=== PATIENT | female | born 1945 | race Caucasian/White ===

== ENCOUNTER 2016-11-19 08:00 | Outpatient (CLI) | payer MEDICARE, OTHER | END 2016-11-19 08:01 | disposition home or self-care (01) | DX: E11.9 Type 2 diabetes mellitus without complications (principal) ==

== ENCOUNTER 2016-11-19 14:07 | Outpatient (CLI) | payer MEDICARE, OTHER | END 2016-11-19 14:08 | disposition home or self-care (01) | DX: G47.33 Obstructive sleep apnea (adult) (pediatric) (principal); E11.9 Type 2 diabetes mellitus without complications | CPT/HCPCS: 36415; 80053; 83036; 99214; G0463 ==

== ENCOUNTER 2016-12-09 21:00 | Outpatient (CLI) | payer MEDICARE, OTHER | END 2016-12-09 21:01 | disposition EMS.NT | LOC: EMS 21:00 | PROVIDERS: ATTEND Surgery | DX: Z03.89 Encounter for observation for other suspected diseases and conditions ruled out (principal); W19.XXXA Unspecified fall, initial encounter; Y92.009 Unspecified place in unspecified non-institutional (private) residence as the place of occurrence of the external cause ==

== ENCOUNTER 2016-12-12 08:09 | Outpatient (CLI) | payer MEDICARE, OTHER ==
--- NOTE | 2016-12-12 13:28 | Ultrasound Report ---
RENAL ULTRASOUND: 12/12/2016 CLINICAL INDICATION: Chronic kidney disease. COMPARISON: 09/22/2014 TECHNIQUE: Real-time scanning was performed with paper sales representative static images obtained. FINDINGS: The right kidney measures 13.0 x 5.2 x 5.0 cm, and the left kidney measures 11.6 x 6.4 x 5 .3 cm. Small cortical cysts are seen arising from the left kidney, with the largest measuring 2.2 cm . No hydronephrosis, focal renal lesion, or perinephric collection is seen. Prevoid, the bladder measures 9.2 x 9.1 x 7.8 cm, yielding a prevoid volume of 351 mL. Bilateral ure teral jets are present. Postvoid residual is 192 mL. IMPRESSION: INCIDENTAL LEFT RENAL CYSTS. NO HYDRONEPHROSIS. POSTVOID RESIDUAL OF 192 ML. JOB #: [id number] EXT JOB #:[id number]
== END 2016-12-12 08:10 | disposition home or self-care (01) ==
LOC: DI 08:09
PROVIDERS: ATTEND Family Medicine
DX: N18.3 Chronic kidney disease, stage 3 (moderate) (principal); N05.9 Unspecified nephritic syndrome with unspecified morphologic changes; I50.32 Chronic diastolic (congestive) heart failure
CPT/HCPCS: 36415; 76770; 80048; 82570; 83880; 83970; 84156

== ENCOUNTER 2016-12-12 10:36 | Outpatient (CLI) | payer MEDICARE, OTHER ==
[2016-12-12 13:48] LABS: CALCIUM 8.7 mg/dL (8.5-10.3); CREATININE 1.9 mg/dL (0.4-1.0); POTASSIUM 3.9 mmol/L (3.5-5.0)
== END 2016-12-12 10:37 | disposition home or self-care (01) ==
LOC: LAB.WCP 10:36
PROVIDERS: ATTEND Internal Medicine Nephrology
DX: N05.9 Unspecified nephritic syndrome with unspecified morphologic changes (principal); I50.32 Chronic diastolic (congestive) heart failure
CPT/HCPCS: 36415; 80048; 83880

== ENCOUNTER 2016-12-12 10:36 | Outpatient (CLI) | payer MEDICARE, OTHER | END 2016-12-12 10:37 | disposition home or self-care (01) | LOC: LAB.WCP 10:36 | PROVIDERS: ATTEND Family Medicine | DX: N18.3 Chronic kidney disease, stage 3 (moderate) (principal) | CPT/HCPCS: 82570; 83970; 84156 ==

== ENCOUNTER 2017-01-02 08:47 | Outpatient (CLI) | payer MEDICARE, OTHER ==
[2017-01-02 12:53] LABS: CALCIUM 8.8 mg/dL (8.5-10.3); PHOSPHORUS 4.5 mg/dL (2.5-4.6); POTASSIUM 3.8 mmol/L (3.5-5.0)
[2017-01-02 13:10] LABS: HCT - HEMATOCRIT 35.4 % (37.0-47.0); HGB - HEMOGLOBIN 11.1 g/dL (12.0-16.0); MEAN CORPUSCULAR HEMOGLOBIN 25.2 pg (27.0-31.0); MEAN CORPUSCULAR HGB CONC 31.4 g/dL (32.0-36.0); MEAN CORPUSCULAR VOLUME 80.3 fL (81.0-99.0); MEAN PLATELET VOLUME 9.9 fL (7.9-10.8); RED BLOOD COUNT 4.41 10^6/uL (4.20-5.40); RED CELL DISTRIBUTION WIDTH 18.4 % (12.0-15.0); WHITE BLOOD COUNT 10.5 x10^3/uL (4.8-10.8)
== END 2017-01-02 08:48 | disposition home or self-care (01) ==
LOC: LAB.WCP 08:47
PROVIDERS: ATTEND Internal Medicine Nephrology
DX: N05.9 Unspecified nephritic syndrome with unspecified morphologic changes (principal); I50.32 Chronic diastolic (congestive) heart failure; D70.9 Neutropenia, unspecified; E83.30 Disorder of phosphorus metabolism, unspecified; N25.81 Secondary hyperparathyroidism of renal origin
CPT/HCPCS: 36415; 80048; 83880; 83970; 84100; 85025

== ENCOUNTER 2017-01-05 14:51 | Outpatient (CLI) | payer MEDICARE, OTHER | END 2017-01-05 14:52 | disposition home or self-care (01) | LOC: DI 14:51 | PROVIDERS: ATTEND Internal Medicine Nephrology | DX: Z53.9 Procedure and treatment not carried out, unspecified reason (principal) ==

== ENCOUNTER 2017-01-09 11:15 | Outpatient (CLI) | payer MEDICARE, OTHER ==
[2017-01-12 14:23] LABS: ANA SCREEN NEGATIVE (NEGATIVE)
[2017-01-13 12:22] LABS: GLOM BASEMENT MEMBRANE AB IGG <1.0 AI (<1.0)
[2017-01-14 00:23] LABS: LAMBDA LIGHT CHAINS 143 mg/dL (91-240)
[2017-01-15 10:11] LABS: TEST RESULT REPORT (())
== END 2017-01-09 11:16 | disposition home or self-care (01) ==
LOC: LAB 11:15
PROVIDERS: ATTEND Internal Medicine Nephrology
DX: L93.2 Other local lupus erythematosus (principal); M31.30 Wegener's granulomatosis without renal involvement; N00.9 Acute nephritic syndrome with unspecified morphologic changes; R80.9 Proteinuria, unspecified; D47.2 Monoclonal gammopathy; E83.30 Disorder of phosphorus metabolism, unspecified; N25.81 Secondary hyperparathyroidism of renal origin
CPT/HCPCS: 36415; 81599; 83520; 83883; 83970; 84100; 86021; 86038; 86334

== ENCOUNTER 2017-01-09 16:53 | Outpatient (CLI) | payer MEDICARE, OTHER | END 2017-01-09 16:54 | disposition short-term general hospital (02) | LOC: EMS 16:53 | PROVIDERS: ATTEND Surgery | DX: R55 Syncope and collapse (principal); W18.30XA Fall on same level, unspecified, initial encounter; Y92.019 Unspecified place in single-family (private) house as the place of occurrence of the external cause | CPT/HCPCS: A0170; A0425; A0427 ==

== ENCOUNTER 2017-01-15 14:44 | Outpatient (CLI) | payer MEDICARE, OTHER | END 2017-01-15 14:45 | disposition EMS.NT | LOC: EMS 14:44 | PROVIDERS: ATTEND Surgery | DX: Z03.89 Encounter for observation for other suspected diseases and conditions ruled out (principal) ==

== ENCOUNTER 2017-01-16 00:58 | Outpatient (CLI) | payer MEDICARE, OTHER | END 2017-01-16 00:59 | disposition critical access hospital (66) | LOC: EMS 00:58 | PROVIDERS: ATTEND Surgery | DX: M25.562 Pain in left knee (principal); W01.198A Fall on same level from slipping, tripping and stumbling with subsequent striking against other object, initial encounter; Y93.01 Activity, walking, marching and hiking; Y92.008 Other place in unspecified non-institutional (private) residence as the place of occurrence of the external cause | CPT/HCPCS: A0425; A0429 ==

== ENCOUNTER 2017-01-16 01:17 | Emergency (ER) | payer MEDICARE, OTHER ==
--- NOTE | 2017-01-16 02:28 | ED Physician Documentation ---
History of Present Illness - Stated complaint Stated Complaint: FALL/KNEE PAIN - Chief complaint Chief Complaint: Ext Problem - History obtained from History obtained from: Patient, Family - History of Present Illness Timing: Enter time (14:00) Pain level now: 5 Improved by: rest Worsened by: movement - Additonal information Additional information: patient was discharged yesterday from [facility] where she had several- day stay for syncope due to 3rd degree heart block for which she received a PPM ; she also was diagnosed with pneumonia. The day of discharge, she was having diarrhea. The reason she came to the ED is that upon returning home from [place], she tripped on the curb on the way into her house, injuring her left knee. Her and her family say that they think she tripped because she was already having generalized weakness, and that she also was told to not put any strain on her LUE (due to PPM placement). She was gradually able to be helped into the house by family but tonight they called 911 due to the left knee pain becoming intolerable. 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 UCO: Hysterectomy Cardiovascular: Pacemaker - Present Medications Home Medications: Ambulatory Orders Medication Instructions Recorded Confirmed Amlodipine Besylate 5 mg PO QDAC 06/06/13 01/16/17 Aspirin 325 mg PO QDAC 06/06/13 01/16/17 Cetirizine HCl [Zyrtec] 10 mg PO QDAC 06/06/13 01/16/17 Clonidine 1 each TD JHAVERI 06/06/13 01/16/17 Esomeprazole Magnesium [Nexium] 40 mg PO DAILY 06/06/13 01/16/17 Furosemide [Lasix] 40 mg PO BID 06/06/13 01/16/17 Gabapentin 300 mg PO DAILY 06/06/13 01/16/17 Glipizide [Glipizide ER] 2.5 mg PO DAILY 06/06/13 01/16/17 Metoprolol Succinate 100 mg PO DAILY 06/06/13 01/16/17 hydrALAZINE [Apresoline] 50 mg PO TID 06/06/13 01/16/17 Allopurinol 300 mg ORAL DAILY 08/08/14 01/16/17 Albuterol Sulfate [Proair Hfa] 2 puffs INH Q4H PRN 02/01/16 01/16/17 Hydrocodone/Acetaminophen 1 tab PO TID PRN 02/01/16 01/16/17 [Hydrocodon-Acetaminophen 5-325] Oxybutynin Chloride [Ditropan Xl] 15 mg PO QPM 02/01/16 01/16/17 Rosuvastatin Calcium [Crestor] 5 mg PO QPM 02/01/16 01/16/17 Venlafaxine HCl [Venlafaxine HCl 37.5 mg PO DAILY 02/01/16 01/16/17 ER] Magnesium Oxide 400 mg PO BID 01/16/17 01/16/17 Pantoprazole [Protonix] 40 mg PO DAILY 01/16/17 01/16/17 - Allergies Allergies/Adverse Reactions: Allergies Allergy/AdvReac Type Severity Reaction Status Date / Time caffeine Allergy Unknown Verified 01/16/17 01:33 codeine [Codeine] AdvReac Severe Hallucinati Verified 01/16/17 01:30 ons diphenhydramine citrate * AdvReac Intermediate unknown Verified 01/16/17 01:30 [From Excedrin PM] ibuprofen [From Advil] AdvReac Intermediate unknown Verified 01/16/17 01:30 naproxen sodium * AdvReac Intermediate unknown Verified 01/16/17 01:30 [From Aleve] zolpidem tartrate * AdvReac Intermediate Hives Verified 01/16/17 01:30 [From Ambien] - Social History Does the pt smoke?: No Smoking Status: Never smoker Does the pt drink ETOH?: No Does the pt have substance abuse?: No - Immunizations Immunizations are current?: Yes - POLST Patient has POLST: No PD ED PE NORMAL - Vitals Vital signs reviewed: Yes - General General: Alert and oriented X 3, No acute distress (NAD at rest, appears uncomfortable with any movement of LLE) - Neck Neck: No bony TTP - Cardiac Cardiac: RRR, No murmur - Respiratory Respiratory: No respiratory distress, Clear bilaterally - Abdomen Abdomen: Soft, Non tender, Other (echymoses across lower abdomen (patient says this was present prior to d/c from [place] and was the site of injections of medications)) - Neuro Neuro: Alert and oriented X 3, No motor deficit, No sensory deficit PD ED PE EXPANDED - Extremities Extremities: Tenderness, Limited ROM, Swelling, Left knee. No: Abrasion, Laceration Results - Vitals Vitals: Vital Signs - 24 hr 01/16/17 01/16/17 13:43 15:30 Temperature 36.4 C L Heart Rate 70 71 Respiratory 14 18 Rate Blood Pressure 178/79 H 156/91 H O2 Saturation 93 94 Oxygen O2 Source [] increased to 95% on RA O2 Source Room air - Labs Labs: Laboratory Tests 01/16/17 01/16/17 01/16/17 02:55 02:55 07:45 WBC 18.1 H RBC 4.62 Hgb 11.4 L 10.6 L Hct 36.1 L MCV 78.1 L MCH 24.6 L MCHC 31.5 L RDW 18.7 H Plt Count 173 MPV 7.9 Neut # 15.9 H Lymph # 0.8 L Sac # 1.4 H Eos # 0.0 Baso # 0.0 Absolute Nucleated RBC 0.00 Nucleated RBCs 0.0 Sodium 137 Potassium 4.6 Chloride 99 L Carbon Dioxide 26 Anion Gap 12.0 BUN 99 H* Creatinine 2.2 H Estimated GFR (MDRD) 22 L Glucose 169 H Calcium 8.5 Total Bilirubin 1.3 H AST 79 H ALT 65 H Alkaline Phosphatase 47 Total Protein 6.5 L Albumin 3.5 Globulin 3.0 Albumin/Globulin Ratio 1.2 Lipase 123 H Urine Color Urine Clarity Urine pH Ur Specific [place] Urine Protein Urine Glucose (UA) Urine Ketones Urine Occult Blood Urine Nitrite Urine Bilirubin Urine Urobilinogen Ur Leukocyte Esterase Urine RBC Urine WBC Ur Epithelial Cells Ur Squamous Epith Cells Urine Bacteria Ur Microscopic Review Urine Culture Comments 01/16/17 12:33 WBC RBC Hgb Hct MCV MCH MCHC RDW Plt Count MPV Neut # Lymph # [place] # Eos # Baso # Absolute Nucleated RBC Nucleated RBCs Sodium Potassium Chloride Carbon Dioxide Anion Gap BUN Creatinine Estimated GFR (MDRD) Glucose Calcium Total Bilirubin AST ALT Alkaline Phosphatase Total Protein Albumin Globulin Albumin/Globulin Ratio Lipase Urine Color YELLOW Urine Clarity SL. CLOUDY Urine pH 5.5 Ur Specific [place] 1.010 Urine Protein 30 H Urine Glucose (UA) NEGATIVE Urine Ketones NEGATIVE Urine Occult Blood TRACE-LYSE Urine Nitrite NEGATIVE Urine Bilirubin NEGATIVE Urine Urobilinogen 0.2 (NORMAL) Ur Leukocyte Esterase NEGATIVE Urine RBC 0-5 Urine WBC 0-3 Ur Epithelial Cells MOD Renal Tubular H Ur Squamous Epith Cells NONE SEEN Urine Bacteria Many H Ur Microscopic Review INDICATED Urine Culture Comments INDICATED - Rads (name of study) left knee xrays Radiology: Prelim report reviewed, See rad report PD MEDICAL DECISION MAKING - ED course Complexity details: reviewed results, re-evaluated patient, considered differential, d/w patient, d/w family ED course: D/W Dr. Carey; admission to the hospital is not indicated at this time. Plan is to obtain SW consult in AM. I also discussed the case with Dr. Lilly (on-call ortho) to discuss management of the fracture. He recommends knee immobilizer, but this had already been tried and will not fit this patient. He thus recommends splint. She can otherwise be WBAT. ZACARIAS consulted and I signed the case out to Dr. Marte at 7 AM. Departure - Departure Disposition: 01 Home, Self Care Clinical Impression: Patellar fracture, GI bleed Condition: Fair Follow-Up: [facility] [Provider Group] Comments: You are to have your stools monitored for further blood and have a repeat blood count in 2 days Keep the knee splinted in extension until seen by orthopedics Discharge Date/Time: 01/16/17 15:33
[2017-01-16 03:01] LABS: LYMPHOCYTES # (AUTO) 0.8 10^3/uL (1.5-3.5); MEAN CORPUSCULAR HGB CONC 31.5 g/dL (32.0-36.0); MONOCYTES # (AUTO) 1.4 10^3/uL (0.0-1.0); NEUTROPHILS # (AUTO) 15.9 10^3/uL (1.5-6.6); RED CELL DISTRIBUTION WIDTH 18.7 % (12.0-15.0)
[2017-01-16 03:07] LABS: BASOPHILS % (AUTO) 0.2 %; EOSINOPHILS % (AUTO) 0.1 %; HCT - HEMATOCRIT 36.1 % (37.0-47.0); HGB - HEMOGLOBIN 11.4 g/dL (12.0-16.0); LYMPHOCYTES % (AUTO) 4.3 %; MEAN CORPUSCULAR HEMOGLOBIN 24.6 pg (27.0-31.0); MEAN CORPUSCULAR VOLUME 78.1 fL (81.0-99.0); MEAN PLATELET VOLUME 7.9 fL (7.9-10.8); MONOCYTES % (AUTO) 7.6 %; NEUTROPHILS % (AUTO) 87.8 %; RED BLOOD COUNT 4.62 10^6/uL (4.20-5.40); UNCORRECTED WHITE BLOOD COUNT 18.1 x10^3/uL; WHITE BLOOD COUNT 18.1 x10^3/uL (4.8-10.8)
[2017-01-16 03:17] LABS: ALBUMIN/GLOBULIN RATIO 1.2 (1.0-2.2); BILIRUBIN,TOTAL 1.3 mg/dL (0.2-1.0); CALCIUM 8.5 mg/dL (8.5-10.3); CREATININE 2.2 mg/dL (0.4-1.0); POTASSIUM 4.6 mmol/L (3.5-5.0); TOTAL PROTEIN 6.5 g/dL (6.7-8.2)
--- NOTE | 2017-01-16 03:52 | XRAY Preliminary Report ---
Exam: XR Knee 4 View LT IMPRESSION: 1. Nondisplaced patellar fracture. 2. Moderate to severe degenerative changes appears similar to the prior study. [facility] SITE ID: [id number]
--- NOTE | 2017-01-16 03:55 | XRAY Report ---
EXAM: LEFT KNEE RADIOGRAPHY EXAM DATE: 01/16/2017 03:32 AM. CLINICAL HISTORY: Injury to the left knee, tenderness. COMPARISON: 08/08/2014. TECHNIQUE: 5 views. FINDINGS: Bones: Nondisplaced vertically oriented patellar fracture. Left knee fracture seen. Joints: No malalignment. Moderate to severe tricompartmental degenerative changes, worst in the media l compartment. Soft Tissues: Normal. No soft tissue swelling. IMPRESSION: 1. Nondisplaced patellar fracture. 2. Moderate to severe degenerative changes appears similar to the prior study. [facility] Referring Provider Line: [phone] SITE ID: [id number]
[2017-01-16] MEDS ORDERED: HYDROcod/ACETAM 5/325 MG TABLET PO STA (05:55)
[2017-01-16] MEDS ORDERED: HYDROcod/ACETAM 5/325 MG TABLET ONE (06:08)
--- NOTE | 2017-01-16 07:57 | ED Physician Documentation ---
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 Cardiovascular: Pacemaker - Present Medications Home Medications: Ambulatory Orders Medication Instructions Recorded Confirmed Amlodipine Besylate 5 mg PO QDAC 06/06/13 01/16/17 Aspirin 325 mg PO QDAC 06/06/13 01/16/17 Cetirizine HCl [Zyrtec] 10 mg PO QDAC 06/06/13 01/16/17 Clonidine 1 each TD JHAVERI 06/06/13 01/16/17 Esomeprazole Magnesium [Nexium] 40 mg PO DAILY 06/06/13 01/16/17 Furosemide [Lasix] 40 mg PO BID 06/06/13 01/16/17 Gabapentin 300 mg PO DAILY 06/06/13 01/16/17 Glipizide [Glipizide ER] 2.5 mg PO DAILY 06/06/13 01/16/17 Metoprolol Succinate 100 mg PO DAILY 06/06/13 01/16/17 hydrALAZINE [Apresoline] 50 mg PO TID 06/06/13 01/16/17 Allopurinol 300 mg ORAL DAILY 08/08/14 01/16/17 Albuterol Sulfate [Proair Hfa] 2 puffs INH Q4H PRN 02/01/16 01/16/17 Hydrocodone/Acetaminophen 1 tab PO TID PRN 02/01/16 01/16/17 [Hydrocodon-Acetaminophen 5-325] Oxybutynin Chloride [Ditropan Xl] 15 mg PO QPM 02/01/16 01/16/17 Rosuvastatin Calcium [Crestor] 5 mg PO QPM 02/01/16 01/16/17 Venlafaxine HCl [Venlafaxine HCl 37.5 mg PO DAILY 02/01/16 01/16/17 ER] Magnesium Oxide 400 mg PO BID 01/16/17 01/16/17 Pantoprazole [Protonix] 40 mg PO DAILY 01/16/17 01/16/17 - Allergies Allergies/Adverse Reactions: Allergies Allergy/AdvReac Type Severity Reaction Status Date / Time caffeine Allergy Unknown Verified 01/16/17 01:33 codeine [Codeine] AdvReac Severe Hallucinati Verified 01/16/17 01:30 ons diphenhydramine citrate * AdvReac Intermediate unknown Verified 01/16/17 01:30 [From Excedrin PM] ibuprofen [From Advil] AdvReac Intermediate unknown Verified 01/16/17 01:30 naproxen sodium * AdvReac Intermediate unknown Verified 01/16/17 01:30 [From Aleve] zolpidem tartrate * AdvReac Intermediate Hives Verified 01/16/17 01:30 [From Ambien] - Social History Does the pt smoke?: No Smoking Status: Never smoker Does the pt drink ETOH?: No Does the pt have substance abuse?: No - Immunizations Immunizations are current?: Yes - POLST Patient has POLST: No Results - Vitals Vitals: Vital Signs - 24 hr 01/16/17 01/16/17 01/16/17 01:19 03:40 05:16 Temperature 36.8 C Heart Rate 70 68 67 Respiratory 18 18 18 Rate Blood Pressure 161/76 H 158/75 H 163/79 H O2 Saturation 97 93 94 01/16/17 01/16/17 13:43 15:30 Temperature 36.4 C L Heart Rate 70 71 Respiratory 14 18 Rate Blood Pressure 178/79 H 156/91 H O2 Saturation 93 94 Oxygen O2 Source [] increased to 95% on RA O2 Source Room air - Labs Labs: Laboratory Tests 01/16/17 01/16/17 01/16/17 02:55 02:55 07:45 WBC 18.1 H RBC 4.62 Hgb 11.4 L 10.6 L Hct 36.1 L MCV 78.1 L MCH 24.6 L MCHC 31.5 L RDW 18.7 H Plt Count 173 MPV 7.9 Neut # 15.9 H Lymph # 0.8 L [place] # 1.4 H Eos # 0.0 Baso # 0.0 Absolute Nucleated RBC 0.00 Nucleated RBCs 0.0 Sodium 137 Potassium 4.6 Chloride 99 L Carbon Dioxide 26 Anion Gap 12.0 BUN 99 H* Creatinine 2.2 H Estimated GFR (MDRD) 22 L Glucose 169 H Calcium 8.5 Total Bilirubin 1.3 H AST 79 H ALT 65 H Alkaline Phosphatase 47 Total Protein 6.5 L Albumin 3.5 Globulin 3.0 Albumin/Globulin Ratio 1.2 Lipase 123 H Urine Color Urine Clarity Urine pH Ur Specific [place] Urine Protein Urine Glucose (UA) Urine Ketones Urine Occult Blood Urine Nitrite Urine Bilirubin Urine Urobilinogen Ur Leukocyte Esterase Urine RBC Urine WBC Ur Epithelial Cells Ur Squamous Epith Cells Urine Bacteria Ur Microscopic Review Urine Culture Comments 01/16/17 12:33 WBC RBC Hgb Hct MCV MCH MCHC RDW Plt Count MPV Neut # Lymph # [place] # Eos # Baso # Absolute Nucleated RBC Nucleated RBCs Sodium Potassium Chloride Carbon Dioxide Anion Gap BUN Creatinine Estimated GFR (MDRD) Glucose Calcium Total Bilirubin AST ALT Alkaline Phosphatase Total Protein Albumin Globulin Albumin/Globulin Ratio Lipase Urine Color YELLOW Urine Clarity SL. CLOUDY Urine pH 5.5 Ur Specific [place] 1.010 Urine Protein 30 H Urine Glucose (UA) NEGATIVE Urine Ketones NEGATIVE Urine Occult Blood TRACE-LYSE Urine Nitrite NEGATIVE Urine Bilirubin NEGATIVE Urine Urobilinogen 0.2 (NORMAL) Ur Leukocyte Esterase NEGATIVE Urine RBC 0-5 Urine WBC 0-3 Ur Epithelial Cells MOD Renal Tubular H Ur Squamous Epith Cells NONE SEEN Urine Bacteria Many H Ur Microscopic Review INDICATED Urine Culture Comments INDICATED PD MEDICAL DECISION MAKING - ED course ED course: assumed care 7AM per turn over from Dr Rodrigez pt was just discharged from [facility] yesterday - was admitted for syncope and pna (completed ab sounds like 5 days zmax) and got a PPM and was dced yesterday, while trying to ambulate with walker she fell and and landed on her L knee s head or neck injury family was able to get her into the house but the knee pain was severe so she was brought to the ER xray showed patellar fx, knee immobilizer ordered but none in ER fit the pt so will splint in extension instead family also mentioned she developed diarrhea with a bit of blood - H/H better than prior, c diff ordered but no stool produced in ER labs also showed WBC 18 K - per report pt recently had pna which likely explains the WBC but will check UA and CXR family would like pt in a SNF and pt is turned over to me pending SW availability went to see pt awake alert cheerful understands and agrees to goal of going to SNF A&O X 3 head atraumatic RRR CTAB PPM site bruised but no apparent infection L knee TTP MSV intact CXR retrocardiac infiltrate vs atelectasis - pt has recently completed ab for pna so presume resolving infiltrate or certainly atelectasis possible after inpt stay will order IS pt able to be placed at [facility] Dr Henslye very kindly wrote SNF orders - since she was not able to provide a stool sample in the ER he wrote to heme occult stools and recheck CBC in 2 days - doubt c diff as pt has has not BM for her many many hr ER stay UA not a clean catch - neg leuk est nitrates and WBC - will wait on cx long leg posterior fiberglass splint placed by tech and checked by me - MSV intact Departure - Departure Disposition: 01 Home, Self Care Clinical Impression: Patellar fracture Qualifiers: Encounter type: initial encounter Fracture type: closed Fracture morphology: longitudinal Fracture alignment: nondisplaced Laterality: left Qualified Code(s) : S82.025A - Nondisplaced longitudinal fracture of left patella, initial encounter for closed fracture GI bleed Qualifiers: GI bleed type/associated pathology: unspecified gastrointestinal hemorrhage type Qualified Code(s): K92.2 - Gastrointestinal hemorrhage, unspecified Condition: Fair Follow-Up: [facility] [Provider Group] Comments: You are to have your stools monitored for further blood and have a repeat blood count in 2 days Keep the knee splinted in extension until seen by orthopedics Discharge Date/Time: 01/16/17 15:33
--- NOTE | 2017-01-16 08:22 | XRAY Preliminary Report ---
Exam: XR Chest 1 View IMPRESSION: Cardiomegaly. Retrocardiac airspace process, atelectasis versus infiltrate. [facility] SITE ID: [id number]
--- NOTE | 2017-01-16 08:25 | XRAY Report ---
EXAM: CHEST RADIOGRAPHY EXAM DATE: 01/16/2017 07:59 AM. CLINICAL HISTORY: Post op weak and WBC 18K. COMPARISON: 06/23/2011 TECHNIQUE: 1 view. FINDINGS: Lungs/Pleura: Mild pulmonary vascular congestion. Linear subsegmental atelectasis or infiltrate retro cardiac region. Lungs otherwise clear. Tiny effusions not excluded. No pneumothorax. Mediastinum: Cardiomegaly. Left subclavian transvenous pacemaker present. Other: Prior gastric band procedure. Question deformity right humeral head age-indeterminate. IMPRESSION: Cardiomegaly. Retrocardiac airspace process, atelectasis versus infiltrate. [facility] Referring Provider Line: [phone] SITE ID: [id number]
[2017-01-16 12:55] LABS: BILIRUBIN,URINE NEGATIVE (NEGATIVE); PH,URINE 5.5 PH (5.0-7.5)
[2017-01-16 12:56] LABS: UA w/ MICROSCOPIC CHARGE YES
[2017-01-16 13:06] LABS: UR CULTURE IF IND INDICATED; WBC,URINE 0-3 /HPF (0-5)
[2017-01-16 16:13] VITALS: BP 156/91
== END 2017-01-16 15:33 | disposition home or self-care (01) ==
LOC: EDUNIT# → EDBD → ED 01:17
DX: S82.025A Nondisplaced longitudinal fracture of left patella, initial encounter for closed fracture (principal); W01.0XXA Fall on same level from slipping, tripping and stumbling without subsequent striking against object, initial encounter; Y93.01 Activity, walking, marching and hiking; Y92.480 Sidewalk as the place of occurrence of the external cause; K92.1 Melena; I10 Essential (primary) hypertension; E11.9 Type 2 diabetes mellitus without complications; Z79.84 Long term (current) use of oral hypoglycemic drugs; Z86.73 Personal history of transient ischemic attack (TIA), and cerebral infarction without residual deficits; Z79.82 Long term (current) use of aspirin
CPT/HCPCS: 36415; 51701; 71010; 73564; 80053; 81001; 83690; 85018; 85025; 87086; 99284; A9270; 81003

== ENCOUNTER 2017-01-16 15:59 | Outpatient (CLI) | payer MEDICARE, OTHER | END 2017-01-16 23:59 | LOC: EMS 15:59 | PROVIDERS: ATTEND Surgery | DX: S82.002A Unspecified fracture of left patella, initial encounter for closed fracture (principal); W01.198A Fall on same level from slipping, tripping and stumbling with subsequent striking against other object, initial encounter; Y93.01 Activity, walking, marching and hiking; Y92.008 Other place in unspecified non-institutional (private) residence as the place of occurrence of the external cause | CPT/HCPCS: A0425; A0428 ==

== ENCOUNTER 2017-01-17 11:39 | Outpatient (CLI) | payer MEDICARE, OTHER | END 2017-01-17 11:40 | disposition critical access hospital (66) | LOC: EMS 11:39 | PROVIDERS: ATTEND Surgery | DX: R41.0 Disorientation, unspecified (principal) | CPT/HCPCS: A0425; A0429 ==

== ENCOUNTER 2017-01-17 11:43 | Inpatient (IN) | payer MEDICARE, OTHER ==
--- NOTE | 2017-01-17 12:14 | ED Physician Documentation ---
History of Present Illness - Stated complaint Stated Complaint: AMS - Chief complaint Chief Complaint: Neuro - Additonal information Additional information: hx from pt and EMR and EMS and COW notes 71 female recently admitted to [facility] for syncope, had a PPM, also had pna and txed with 5 days zmax, on the way home from [facility] she fell and suffered a patellar fx so came to [facility] ER was seen here - xray showed patellar fx, ortho consulted and rec knee immobilizer which did not fit so splinted, had labs,m WBC was 18, got CXR (no new pna most c/w ate;ectasis) and UA (not a cvlean catch, some bacteria but no WBC leuk est or nitartes, cx pending) and ordered a cdiff 2/2 report ofdiarrhea but pt never gave a stool sample or had any more diarrhea, by report pt had small blood in stool so when sent to SNF orders included to occult blood each stool and get CBC in 2 days pt not able to ambulate 2/2 PPM (can't use walker) so placed at [facility] has been given narcotics for her patella per his AMS with narcotics in the past today has AMS - apparently awoke that way due to AMS and high WBC yesterday pt sent back to the ER pt did have diarrhea at [facility], no grossly bloody, not tested for occult blood or c diff pt has no complaints in the ER but is more confused that I recall yesterday she is awake though and denies HERNANDEZ, neck pain at site of temp pacer improved, no CP or AP, no cough or SOA, knee feels better Review of Systems Constitutional: denies: Fever, Chills Throat: denies: Sore throat Cardiac: denies: Chest pain / pressure, Palpitations Respiratory: denies: Dyspnea GI: denies: Abdominal Pain, Nausea, Vomiting : denies: Dysuria Musculoskeletal: denies: Extremity pain Neurologic: reports: Altered mental status Endocrine: denies: Easy bruising / bleeding Immunocompromised: denies: Immunocompromised PD PAST MEDICAL HISTORY - Past Medical History Past Medical History: Yes Cardiovascular: Hypertension, High cholesterol, Murmur Respiratory: Asthma, CPAP use Neuro: CVA Endocrine/Autoimmune: Type 2 diabetes GI: GERD : Incontinence, Frequency HEENT: None Psych: Depression, Anxiety Musculoskeletal: Osteoarthritis Derm: None - Past Surgical History Past Surgical History: No General: 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 /[employer]: Hysterectomy Cardiovascular: Pacemaker - Present Medications Home Medications: Ambulatory Orders Medication Instructions Recorded Confirmed Amlodipine Besylate 5 mg PO QDAC 06/06/13 01/17/17 Aspirin 325 mg PO QDAC 06/06/13 01/17/17 Cetirizine HCl [Zyrtec] 10 mg PO QDAC 06/06/13 01/17/17 Clonidine 1 each TD JHAVERI 06/06/13 01/16/17 Esomeprazole Magnesium [Nexium] 40 mg PO DAILY 06/06/13 01/16/17 Furosemide [Lasix] 40 mg PO BID 06/06/13 01/17/17 Gabapentin 300 mg PO DAILY 06/06/13 01/17/17 Glipizide [Glipizide ER] 2.5 mg PO DAILY 06/06/13 01/17/17 Metoprolol Succinate 100 mg PO DAILY 06/06/13 01/17/17 hydrALAZINE [Apresoline] 50 mg PO TID 06/06/13 01/17/17 Allopurinol 300 mg ORAL DAILY 08/08/14 01/17/17 Albuterol Sulfate [Proair Hfa] 2 puffs INH Q4H PRN 02/01/16 01/17/17 Hydrocodone/Acetaminophen 1 tab PO TID PRN 02/01/16 01/17/17 [Hydrocodon-Acetaminophen 5-325] Oxybutynin Chloride [Ditropan Xl] 15 mg PO QPM 02/01/16 01/17/17 Rosuvastatin Calcium [Crestor] 5 mg PO QPM 02/01/16 01/17/17 Venlafaxine HCl [Venlafaxine HCl 37.5 mg PO DAILY 02/01/16 01/17/17 ER] Magnesium Oxide 400 mg PO BID 01/16/17 01/17/17 Pantoprazole [Protonix] 40 mg PO DAILY 01/16/17 01/17/17 - Allergies Allergies/Adverse Reactions: Allergies Allergy/AdvReac Type Severity Reaction Status Date / Time caffeine Allergy Unknown Verified 01/16/17 01:33 codeine [Codeine] AdvReac Severe Hallucinati Verified 01/16/17 01:30 ons diphenhydramine citrate * AdvReac Intermediate unknown Verified 01/16/17 01:30 [From Excedrin PM] ibuprofen [From Advil] AdvReac Intermediate unknown Verified 01/16/17 01:30 naproxen sodium * AdvReac Intermediate unknown Verified 01/16/17 01:30 [From Aleve] zolpidem tartrate * AdvReac Intermediate Hives Verified 01/16/17 01:30 [From Ambien] - Social History Does the pt smoke?: No Smoking Status: Never smoker Does the pt drink ETOH?: No Does the pt have substance abuse?: No - Immunizations Immunizations are current?: Yes - POLST Patient has POLST: No PD ED PE NORMAL - Vitals Vital signs reviewed: Yes - General General: No: Alert and oriented X 3 (mildly confused) - HEENT HEENT: PERRL - Neck Neck: Supple, no meningeal sign, Other (L IJ site without infection) - Cardiac Cardiac: RRR, Other (PPM site s infection) - Respiratory Respiratory: No respiratory distress, Clear bilaterally - Abdomen Abdomen: Soft, Non tender - Derm Derm: Normal color - Extremities Extremities: No deformity, Other (LLE in splint, MSV intact) - Neuro Neuro: No motor deficit. No: Alert and oriented X 3 Results - Vitals Vitals: Vital Signs - 24 hr 01/17/17 01/17/17 01/17/17 11:44 12:18 13:12 Temperature 37.3 C Heart Rate 94 89 Respiratory 18 20 14 Rate Blood Pressure 176/83 H 178/85 H 161/81 H O2 Saturation 92 94 93 01/17/17 01/17/17 01/17/17 17:05 18:37 19:42 Temperature 36.4 C L 36.9 C Heart Rate 89 84 76 Respiratory 16 15 15 Rate Blood Pressure 162/77 H 143/80 H 163/76 H O2 Saturation 94 97 94 01/17/17 21:41 Temperature Heart Rate 83 Respiratory 24 Rate Blood Pressure 141/67 H O2 Saturation 99 Oxygen O2 Source [Without Activity] increased to 95% on RA O2 Source Patient supplied BIPAP - Labs Labs: Microbiology 01/17/17 21:33 CSF Culture - Preliminary Cerebral Spinal Fluid Laboratory Tests 01/17/17 01/17/17 01/17/17 03:26 12:30 12:30 WBC 12.9 H RBC 4.49 Hgb 11.1 L Hct 35.4 L MCV 78.9 L MCH 24.8 L MCHC 31.4 L RDW 19.2 H Plt Count 142 MPV 8.5 Neut # 11.0 H Lymph # 0.8 L [place] # 0.8 Eos # 0.3 Baso # 0.0 Absolute Nucleated RBC 0.01 Nucleated RBCs 0.1 PT INR Bld Gas Analysis Time Sample Site ABG pH ABG pCO2 ABG pO2 ABG HCO3 ABG Total CO2 ABG O2 Saturation ABG Base Excess Armen Test Room Air Sodium 146 H Potassium 4.2 Chloride 107 Carbon Dioxide 30 Anion Gap 9.0 BUN 65 H Creatinine 1.4 H Estimated GFR (MDRD) 37 L Glucose 171 H Glycated Hemoglobin 6.0 Estim Average Glucose 126 H Calcium 8.5 Phosphorus Magnesium Urine Color Urine Clarity Urine pH Ur Specific Arnett Urine Protein Urine Glucose (UA) Urine Ketones Urine Occult Blood Urine Nitrite Urine Bilirubin Urine Urobilinogen Ur Leukocyte Esterase Urine RBC Urine WBC Ur Epithelial Cells Ur Squamous Epith Cells Urine Bacteria Ur Microscopic Review Urine Culture Comments CSF Color CSF Clarity Xanthrochromic CSF WBC CSF RBC CSF Cell Count Tube # CSF Glucose CSF Total Protein 01/17/17 01/17/17 01/17/17 12:30 12:30 14:35 WBC RBC Hgb Hct MCV MCH MCHC RDW Plt Count MPV Neut # Lymph # [place] # Eos # Baso # Absolute Nucleated RBC Nucleated RBCs PT 10.3 INR 0.9 Bld Gas Analysis Time Sample Site ABG pH ABG pCO2 ABG pO2 ABG HCO3 ABG Total CO2 ABG O2 Saturation ABG Base Excess Armen Test Room Air Sodium Potassium Chloride Carbon Dioxide Anion Gap BUN Creatinine Estimated GFR (MDRD) Glucose Glycated Hemoglobin Estim Average Glucose Calcium Phosphorus 3.6 Magnesium 3.3 H Urine Color YELLOW Urine Clarity HAZY Urine pH 6.0 Ur Specific Arnett 1.010 Urine Protein 100 H Urine Glucose (UA) NEGATIVE Urine Ketones NEGATIVE Urine Occult Blood SMALL H Urine Nitrite NEGATIVE Urine Bilirubin NEGATIVE Urine Urobilinogen 0.2 (NORMAL) Ur Leukocyte Esterase NEGATIVE Urine RBC 0-5 Urine WBC 0-3 Ur Epithelial Cells FEW Transitional Ur Squamous Epith Cells NONE SEEN Urine Bacteria None Seen Ur Microscopic Review INDICATED Urine Culture Comments NOT INDICATED CSF Color CSF Clarity Xanthrochromic CSF WBC CSF RBC CSF Cell Count Tube # CSF Glucose CSF Total Protein 01/17/17 01/17/17 17:04 21:33 WBC RBC Hgb Hct MCV MCH MCHC RDW Plt Count MPV Neut # Lymph # [place] # Eos # Baso # Absolute Nucleated RBC Nucleated RBCs PT INR Bld Gas Analysis Time 1704 Sample Site LEFT RADIAL ABG pH 7.51 H ABG pCO2 37 ABG pO2 67 L ABG HCO3 28.8 H ABG Total CO2 30.0 H ABG O2 Saturation 94 ABG Base Excess 5.5 H Armen Test POSITIVE Room Air YES Sodium Potassium Chloride Carbon Dioxide Anion Gap BUN Creatinine Estimated GFR (MDRD) Glucose Glycated Hemoglobin Estim Average Glucose Calcium Phosphorus Magnesium Urine Color Urine Clarity Urine pH Ur Specific Arnett Urine Protein Urine Glucose (UA) Urine Ketones Urine Occult Blood Urine Nitrite Urine Bilirubin Urine Urobilinogen Ur Leukocyte Esterase Urine RBC Urine WBC Ur Epithelial Cells Ur Squamous Epith Cells Urine Bacteria Ur Microscopic Review Urine Culture Comments CSF Color COLORLESS CSF Clarity HAZY Xanthrochromic ABSENT CSF WBC 0 CSF RBC 422 H CSF Cell Count Tube # CSF TUBE# 3 CSF Glucose 86 H CSF Total Protein 42 - Rads (name of study) CTH Radiology: See rad report (no acute intracranial abn, stable inferior left cerebellar encephalomalacia) PD MEDICAL DECISION MAKING - ED course ED course: WBC down H/H up kidney fxn improved CXR improved Ua neg CTH no acute no stool for c diff throughout ER stay pt became significantly more and more lethargic and confused initially thought sx may be due to vicodin for patellar fx - but per SNF MAR pt last received yesterday and her sx are progressing - so unlikely she uses CPAP so consider hypercapnea but CO2 < 40 no infectious source found on work up pt afebrile and denies HERNANDEZ so doubt meningitis pt had not eaten all day so rechecked blood sugar - not low - started IVF family concerned about stroke - apparently she had a stroke in the past that presented with only AMS and generalized weakness - got a CTH which showed no acute process - her PPM is MRI compatible so wanted to get a MRI but per trade show coordinator can only be done at a tertiary care facility with cardiology avail to check /reset PPM after MRI since she was just dced from Prov will transfer back if possible [facility] hospitalist willing to accept pt but wanted to confirm their MRI was compatible - unfortunately it turns out no MRI anywhere can be performed for 6 weeks post procedure so back to admit to [facility] hospitalist Dr Ayden tellez LP which I will do - pt to be admitted pending results and hospitalist to follow up results - informed consent as best possible given AMS, very diff to position with AMS on cpap, altered, and unable to flex LLE - sterile prep and drape - i did obtain a flash of boody CSF but then clotted and could not obtain enough to test, then Dr Brooks tried several times s success, and finally anesthesia tried in several diff positions and was finally able to obtain CSF for anaylsis pt admitted with results pending Departure - Departure Disposition: ED Place in Observation Clinical Impression: Altered mental status Qualifiers: Altered mental status type: delirium Qualified Code(s): R41.0 - Disorientation , unspecified Condition: Fair Discharge Date/Time: 01/17/17 23:00
[2017-01-17 12:53] LABS: CALCIUM 8.5 mg/dL (8.5-10.3); CREATININE 1.4 mg/dL (0.4-1.0); POTASSIUM 4.2 mmol/L (3.5-5.0)
[2017-01-17 13:05] LABS: BASOPHILS % (AUTO) 0.1 %; EOSINOPHILS # (AUTO) 0.3 10^3/uL (0.0-0.7); EOSINOPHILS % (AUTO) 2.6 %; HCT - HEMATOCRIT 35.4 % (37.0-47.0); HGB - HEMOGLOBIN 11.1 g/dL (12.0-16.0); LYMPHOCYTES # (AUTO) 0.8 10^3/uL (1.5-3.5); LYMPHOCYTES % (AUTO) 6.3 %; MEAN CORPUSCULAR HEMOGLOBIN 24.8 pg (27.0-31.0); MEAN CORPUSCULAR HGB CONC 31.4 g/dL (32.0-36.0); MEAN CORPUSCULAR VOLUME 78.9 fL (81.0-99.0); MEAN PLATELET VOLUME 8.5 fL (7.9-10.8); MONOCYTES # (AUTO) 0.8 10^3/uL (0.0-1.0); MONOCYTES % (AUTO) 6.1 %; NEUTROPHILS % (AUTO) 84.9 %; NUCLEATED RED BLOOD CELLS AUTO 0.1 /100WBC; RED BLOOD COUNT 4.49 10^6/uL (4.20-5.40); RED CELL DISTRIBUTION WIDTH 19.2 % (12.0-15.0); UNCORRECTED WHITE BLOOD COUNT 12.9 x10^3/uL; WHITE BLOOD COUNT 12.9 x10^3/uL (4.8-10.8)
--- NOTE | 2017-01-17 14:39 | XRAY Preliminary Report ---
Exam: XR Chest 2 View PA/LAT IMPRESSION: Resolving pulmonary vascular congestion. [facility] SITE ID: [id number]
--- NOTE | 2017-01-17 14:42 | XRAY Report ---
EXAM: CHEST RADIOGRAPHY EXAM DATE: 01/17/2017 02:04 PM. CLINICAL HISTORY: High WBC recent pneumonia. COMPARISON: Chest x-ray 01/16/2017. TECHNIQUE: 2 views. FINDINGS: Lungs/Pleura: Resolving interstitial opacities. No pneumothorax. No pleural effusion. Potential bibasilar atelectasis. Mediastinum: Prominent cardiac silhouette. Other: Left subclavian pacemaker. Probable right cardiophrenic angle fat pad. IMPRESSION: Resolving pulmonary vascular congestion. [facility] Referring Provider Line: [phone] SITE ID: [id number]
[2017-01-17 14:51] LABS: BILIRUBIN,URINE NEGATIVE (NEGATIVE)
[2017-01-17 15:07] LABS: UA w/ MICROSCOPIC CHARGE YES
[2017-01-17 15:29] LABS: UR CULTURE IF IND NOT INDICATED; WBC,URINE 0-3 /HPF (0-5)
[2017-01-17 17:15] LABS: ABG ANALYSIS TIME 1704; ABG BASE EXCESS 5.5 mmol/L (-2.0-3.0); ABG HCO3 28.8 mmol/L (22.0-26.0); ABG PCO2 37 mmHg (34-45); ABG PH 7.51 (7.35-7.45); ABG PO2 67 mmHg (80-100)
[2017-01-17 17:16] LABS: ABG OXYGEN SATURATION 94 % (94-98); ABG ROOM AIR YES; ABG SITE OF DRAW LEFT RADIAL; ALLEN TEST POSITIVE
--- NOTE | 2017-01-17 17:22 | CT Preliminary Report ---
Exam: CT Head W/O IMPRESSION: No acute intracranial abnormality. Stable inferior left cerebellar encephalomalacia. [facility] SITE ID: [id number]
--- NOTE | 2017-01-17 17:24 | CT Report ---
EXAM: CT HEAD EXAM DATE: 01/17/2017 05:03 PM. CLINICAL HISTORY: Altered mental status. Slurred words. History of stroke. COMPARISON: MRI 10/05/2014. TECHNIQUE: Multiaxial CT images were obtained from the foramen magnum to the vertex. IV contrast: Non e. Reformats: Coronal. In accordance with CT protocol optimization, one or more of the following dose reduction techniques w ere utilized for this exam: automated exposure control, adjustment of mA and/or KV based on patient s ize, or use of iterative reconstructive technique. FINDINGS: Parenchyma: No intraparenchymal hemorrhage. Stable inferior left cerebellar encephalomalacia. No evid ence of mass, midline shift, or CT findings of acute infarction. Leon-white differentiation is distin ct. Extraaxial Spaces: Normal for age. No subdural or epidural collections identified. Ventricles: Normal in size and position. Sinuses: Mucous retention cysts in the maxillary sinuses, otherwise the imaged paranasal sinuses, orb its, and mastoids show no significant abnormality. Bones: No evidence of fracture or calvarial defect. Other: None. IMPRESSION: No acute intracranial abnormality. Stable inferior left cerebellar encephalomalacia. [facility] Referring Provider Line: [phone] SITE ID: [id number]
[2017-01-17] MEDS ORDERED: SODIUM CHLORIDE 0.9% 1,000 ML IV ONE (19:00)
[2017-01-17] MEDS ORDERED: D5.45NS W/20 MEQ KCL 1,000 ML IV SCH (19:00)
[2017-01-17] MEDS ORDERED: SODIUM CHLORIDE FLUSH 0.9% 10 ML SYRINGE IVP PRN (20:35)
[2017-01-17] MEDS ORDERED: HYDROcod/ACETAM 5/325 MG TABLET PO PRN (20:48)
[2017-01-17] MEDS ORDERED: ONDANSETRON 4 MG/2 ML VIAL IVP PRN (20:48)
--- NOTE | 2017-01-17 21:00 | HISTORY & PHYSICAL EXAMINATION ---
Chief Complaint - Chief Complaint Chief Complaint: altered mental status,, since this morning. Recent fall,, recent pacemaker, History of Present Illness - Admitted From Admitted From:: [facility] - History Obtained From Records Reviewed: EMR records History obtained from: patient's and daughter,, ER doctor, records,, patient Exam Limitations: the patient's confusion - History of Present Illness HPI Comment/Other: this 71-year-old white female is sent to the emergency room today from [facility]. She has had a fairly complicated course oover the last week. Approximately one week ago she was admitted to [facility] in [place]. where she had syncope, and heart block. She apparently also was diagnosed with heart block.. She had a right sided temporary pacemaker put in place, and they treated her for pneumonia for about 7 days,, and then put in the permanent pacemaker. They sent her directly from the ICU, back to home, 2 days ago. Getting out of the car at home, she fell, and fractured her left patella. radio communication coordinator were called to get her back in her house. She was unable to get out of her chair afterwards, so her family brought her to our emergency room for evaluation, it yesterday. Yesterday, he our evaluation showed elevated white blood cell count,, but negative urinalysis and chest x-ray. The patient was felt to need physical therapy for her new left patella fracture.. She was sent over to [facility]. She was reportedly alert and clearheaded at that time here. However, this morning, when she awakened, she was very confused. She could not seem to recognize people, or speak articulately. She was sent back over to our emergency room. It appears she received one dose of Vicodin, perhaps last night.. Her family reports that she has had adverse reactions to narcotics in the past,, but her daughter feels this confusion is much worse than previous narcotic reactions.. ER evaluation today, showed a normal head CT, without obvious new stroke or hemorrhage. Chest x-ray and urinalysis are reported as normal. Vital signs have been fairly stable. However, her mental status is definitely waxing and waning. Lumbar puncture was just performed, and initial tube is slightly pink tinged, , but other tubes appear clear. This patient will need to be admitted,, as she can obviously not be transferred out until we understand the cause of her altered mental status. her family says she has not been complaining of fever or chills,, headaches or dizziness,, cough or shortness of breath.. Her notes she was noting soreness in her right upper chest area, where the temporary pacemaker was. Otherwise she did not report chest pain, abdominal pain,, nausea or vomiting. He says she was complaining of diarrhea, but he noted minimal stool.. There was bright red blood in yesterday stool. She did not report dysuria. Past medical history Obstructive sleep apnea,, treated with home BiPAP CVA with left hemiparesis in 1988, with minimal residual. Depression and anxiety Morbid obesity Type II diabetes GERD Hypertension Hyperlipidemia Asthma Heart valve disease Osteoarthritis Osteopenia History of recurrent UTIs with mudrug-resistant Escherichia coli Migraines Gout Chronic kidney disease, stage III Heart block, status post pacemaker, January 2017 Pneumonia, January 2017 medications: Hydralazine 50 mg 3 times a day Venlafaxine 37.5 mg daily Crestor 5 mg every afternoon Nexium 40 mg daily? Protonix 40 mg daily? In Ditropan XL 15 mg every afternoon Metoprolol succinate 100 mg daily Magnesium 400 mg twice a day Capron 5/325 3 times a day when necessary Glipizide 2.5 mg daily Gabapentin 300 mg daily Lasix 40 mg twice a day Clonidine topically q. Thursday Cetirizine 10 mg daily Aspirin 325 mg daily Amlodipine 5 mg daily Allopurinol 300 mg daily Albuterol inhaler 2 puffs every 4 hour past surgical history: Recent pacemaker. 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. total hysterectomy. thoracic 6 vertebroplasty in 2007. allergies: Caffeine Codeine causes hallucinations Benadryl Ibuprofen and Naprosyn Ambien causes hives family history: Mother at age 103, natural causes. Father from an aneurysm in his 90s. Social history: The patient is and lives with her . She does not use tobacco, alcohol,, drugs. History - Past Medical History Cardiovascular: reports: Hypertension, High cholesterol, Murmur Respiratory: reports: Asthma, CPAP use Neuro: reports: CVA Endocrine/Autoimmune: reports: Type 2 diabetes GI: reports: GERD : reports: Incontinence, Frequency HEENT: reports: None Psych: reports: Depression, Anxiety Musculoskeletal: reports: Osteoarthritis Derm: reports: None MRSA Hx?: No - Past Surgical History General: reports: 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 /SOAP GRINDER: reports: Hysterectomy Cardiovascular: reports: Pacemaker - POLST Patient has POLST: No Meds/Allgy - Home Medications Home Medications: Ambulatory Orders Medication Instructions Recorded Confirmed Amlodipine Besylate 5 mg PO QDAC 06/06/13 01/17/17 Aspirin 325 mg PO QDAC 06/06/13 01/17/17 Cetirizine HCl [Zyrtec] 10 mg PO QDAC 06/06/13 01/17/17 Clonidine 1 each TD JHAVERI 06/06/13 01/16/17 Esomeprazole Magnesium [Nexium] 40 mg PO DAILY 06/06/13 01/16/17 Furosemide [Lasix] 40 mg PO BID 06/06/13 01/17/17 Gabapentin 300 mg PO DAILY 06/06/13 01/17/17 Glipizide [Glipizide ER] 2.5 mg PO DAILY 06/06/13 01/17/17 Metoprolol Succinate 100 mg PO DAILY 06/06/13 01/17/17 hydrALAZINE [Apresoline] 50 mg PO TID 06/06/13 01/17/17 Allopurinol 300 mg ORAL DAILY 08/08/14 01/17/17 Albuterol Sulfate [Proair Hfa] 2 puffs INH Q4H PRN 02/01/16 01/17/17 Hydrocodone/Acetaminophen 1 tab PO TID PRN 02/01/16 01/17/17 [Hydrocodon-Acetaminophen 5-325] Oxybutynin Chloride [Ditropan Xl] 15 mg PO QPM 02/01/16 01/17/17 Rosuvastatin Calcium [Crestor] 5 mg PO QPM 02/01/16 01/17/17 Venlafaxine HCl [Venlafaxine HCl 37.5 mg PO DAILY 02/01/16 01/17/17 ER] Magnesium Oxide 400 mg PO BID 01/16/17 01/17/17 Pantoprazole [Protonix] 40 mg PO DAILY 01/16/17 01/17/17 - Allergies Allergies/Adverse Reactions: Allergies Allergy/AdvReac Type Severity Reaction Status Date / Time caffeine Allergy Unknown Verified 01/16/17 01:33 codeine [Codeine] AdvReac Severe Hallucinati Verified 01/16/17 01:30 ons diphenhydramine citrate * AdvReac Intermediate unknown Verified 01/16/17 01:30 [From Excedrin PM] ibuprofen [From Advil] AdvReac Intermediate unknown Verified 01/16/17 01:30 naproxen sodium * AdvReac Intermediate unknown Verified 01/16/17 01:30 [From Aleve] zolpidem tartrate * AdvReac Intermediate Hives Verified 01/16/17 01:30 [From Ambien] Exam - Vital Signs Reviewed Vital Signs: Yes Vital Signs: Vital Signs x48h Temp Pulse Resp BP Pulse Ox 01/17/17 19:42 36.9 C 76 15 163/76 H 94 01/17/17 18:37 36.4 C L 84 15 143/80 H 97 01/17/17 17:05 89 16 162/77 H 94 01/17/17 13:12 89 14 161/81 H 93 on exam, this is a confused, probably delirious, elderly white female.. She is currently wearing her BiPAP mask. She keeps her eyes closed, but is able to open them to verbal command. She admits that she is feeling con. She could not say exactly where she is, or name the year. She is able to follow most commands, with encouragement. head: Normocephalic, atraumatic. Ears: TMs and canals are mostly clear. There is moderate cerumen noted in the left ear canal. The patient does seem to have some discomfort with exam of the left ear. Eyes: PERRLA, EOMI,, anicteric. Pharynx: Is rather markedly crowded. Otherwise, teeth are in only fair condition,, no lesions of the mucosa are noted. Neck: Appears supple, without lymphadenopathy,, JVD, thyromegaly, bruits. Heart: Has a regular rhythm, which is paced. A 2/6 systolic ejection murmur is noted, loudest at the apex. No rubs or gallops are noted. right upper chest wall is quite tender, at the site of recent temporary pacemaker. Left upper chest has the new pacemaker,, and this area is bruised and tender as well. Lungs: Breath sounds were a little difficult to hear in the ER setting, but lungs appear fairly clear, without obvious rales, rhonchi, wheezes. Abdomen: Is markedly obese, but without obvious masses or tenderness. Bowel sounds appear active. There is no obvious guarding or rebound Extremities: Left leg is placed in a splint and wrapped from her knee to her toes,, regarding recent patellar fracture. Bilateral legs are generally puffy.. There are scattered bruises noted on both legs. There is no obvious cyanosis,, or clubbing. Neurologic: The patient's level of alertness waxes and wanes. She is able to open her eyes on command, and is able to follow simple commands. However she is not able to articulate answers to many questions, and is quite forgetful. cranial nerves appear grossly intact.. Motor exam: She appears generally weak, with 3+ to 4/5 strength in all extremities. There is no obvious focal weakness. Conclusion/Plan - Problem List (1) Altered mental status Qualifiers: Altered mental status type: delirium Qualified Code(s): R41.0 - Disorientation, unspecified (2) HTN (hypertension) Qualifiers: Hypertension type: essential hypertension Qualified Code(s): I10 - Essential (primary) hypertension (3) Patellar fracture Qualifiers: Encounter type: subsequent encounter Fracture type: closed Fracture morphology: longitudinal Fracture alignment: nondisplaced Laterality: left (4) ARF (acute renal failure) Qualifiers: Acute renal failure type: unspecified Qualified Code(s): N17.9 - Acute kidney failure, unspecified (6) Leukocytosis Qualifiers: Leukocytosis type: bandemia Qualified Code(s): D72.825 - Bandemia - Lab Results Lab results reviewed: Yes Fish Bones: 01/17/17 12:30 01/17/17 12:30 Other Lab Results: most recent blood pressure was elevate at 280/91.. O2 saturation is maintaining at 93% on CPAP ABG on room air: Shows pH of 7.51, PCO2 37, PO2 67,, bicarbonate 28, O2 saturation 94% urinalysis: 100 mg of protein, small occult bl, negative for nitrites,, negative for leukocyte esterase,, no bacteria CSF: Colorless, 0 white blood cells, 422 red blood,, 86 milligrams of glucose, 42 mg of protein urine culture from January 16: No growth so far dry CT: No acute intracranial abnormality. left cerebellar encephalomalacia. Chest x-ray: Resolving pulmonary vascular congestion lleft knee x-ray, January 16: Nondisplaced, vertically oriented patellar fracture. Moderate to severe tricompartmental degenerative changes.. Issues/Core Measures - Anticipated LOS Anticipated Stay Length: 2 or more midnights - Issues Hospital Issues and Management Plan: assessment and plan: #1. Neurologic. This patient presents with fairly acute onset altered mental status. This seems to wax and wane somewhat, and is most likely consistent with a medical delirium. -Causes are likely multifactorial, including recent Vicodin, recent acute illness with pneumonia and heart block,, status post both a temporary and a permanent pacemaker placement. The patient also has significant dehydration, which is causing other metabolic abnormalities. -Admitted today, as she has failed an attempt at management at the detention. -IV fluids. -CSF studies are pending. -Schedule CT angiogram of her brain and neck, to rule out new stroke. -Blood and CSF cultures, pending. #2. Cardiac. This patient had recent heart block, which was treated with a temporary pacemaker,, followed by permanent pacemaker pl,, within the last week. The pacemaker appears to be Functioning normally. The patient is having pain at both sites. Blood cultures are pending, to try to be sure there is no device - associated bacteremia. -She is relatively hypertensive, but this will not be addressed to,, given the possibility of recent stroke. -Reported history of valvular heart d Disease. If she turns out to be bacteremic ,, she may need followup echocardiogram. #3. Endocrine. -Type II diabetes. Accu-Cheks and coverage with sliding scale insinsulin. -On hold glipizide, until is stable. #4. Infectious disease. The patient presented yesterday with markedly elevated white blood cell count , and left shift. For whatever reason, this is improved today, but the source is still unclear. The patient was recently treated for pneumonia, but that is presumably resolved. Chest x-ray and urinalysis are reported as normal today. -CSF and blood cultures are pending. #5. Orthopedic.. -New left patella fracture. Orthopedics apparently advised either a splint or a boot.. -Order physical therapy evaluation -Patient can normally ambulate with a walker. #6. Pulmonary. -Continue CPAP for known obstructive sleep apnea. -reported history of asthma. Add albuterol if needed. #7. Psychiatric. History of depression Continue usual Effexor. #8. Renal. I patient presents with probable respiratory alkalosis, and evidence of dehydration, although this appears improved com Compared to yesterday. -IV fluids. Check followup labs. #9. GI. The patient had been complaining of di, but her says she really irving C. difficile was ordered. -Her also reports that the small bowel movement she .. He believe she does have a History of hemorrhoids. -continue treatment of GERD with PPI. clarify if she is supposed to be on Nexium or Protonix. -Check stool cards. Check followup hemoglobin. #10. Colon CODE STATUS: Full code. #11. DVT prophylaxis: Subcutaneous heparin This visit took approximately 75 minutes, to review old records, review her case with the [facility], interview and examine her, interview the family, and review plan of care with them, as well as with nursing staff, and to write orders. - DVT/VTE - Prophylaxis VTE/DVT Device ordered at admit?: No VTE/DVT Prophylaxis med ordered at admit?: Yes - Stroke - Rehab Assessment Rehab services assessment to be ordered?: Yes
[2017-01-17 22:14] LABS: CSF - GLUCOSE 86 mg/dL (45-70)
[2017-01-17 22:15] LABS: CLARITY,CSF HAZY (CLEAR); COLOR,CSF COLORLESS (COLORLESS); CSF XANTHOCHROMIA ABSENT (ABSENT); WHITE BLOOD CELL,CSF 0 /mm^3 (0-5)
[2017-01-17] MEDS ORDERED: POTASSIUM CHLORIDE INJ 20 MEQ in SODIUM CHLORIDE 0.45% 1,000 ML IV SCH (23:45)
[2017-01-18] MEDS: SODIUM CHLORIDE FLUSH 0.9% 10 ML SYRINGE IVP SCH ×4 (00:38→20:52)
[2017-01-18] MEDS: SODIUM CHLORIDE 0.45% 1,000 ML IV SCH ×3 (00:38→22:13)
[2017-01-18 00:39] LABS: BILIRUBIN,URINE NEGATIVE (NEGATIVE)
[2017-01-18 01:02] LABS: UR CULTURE IF IND NOT INDICATED; WBC,URINE 0-3 /HPF (0-5)
[2017-01-18 01:15] LABS: INR 0.9 (0.8-1.2); PT - PROTHROMBIN TIME 10.3 secs (9.9-12.6)
[2017-01-18 01:51] LABS: MAGNESIUM 3.3 mg/dL (1.7-2.8); PHOSPHORUS 3.6 mg/dL (2.5-4.6)
[2017-01-18] MEDS ORDERED: METOPROLOL 5 MG/5 ML VIAL IVP PRN (03:02)
[2017-01-18] MEDS ORDERED: MAGNESIUM SULFATE 2 GRAM 50 ML IV ONE (03:04)
[2017-01-18 03:57] LABS: BASOPHILS % (AUTO) 0.2 %; EOSINOPHILS # (AUTO) 0.3 10^3/uL (0.0-0.7); EOSINOPHILS % (AUTO) 2.5 %; HCT - HEMATOCRIT 33.6 % (37.0-47.0); HGB - HEMOGLOBIN 10.5 g/dL (12.0-16.0); LYMPHOCYTES # (AUTO) 0.9 10^3/uL (1.5-3.5); MEAN CORPUSCULAR HEMOGLOBIN 25.1 pg (27.0-31.0); MEAN CORPUSCULAR HGB CONC 31.2 g/dL (32.0-36.0); MEAN CORPUSCULAR VOLUME 80.3 fL (81.0-99.0); MEAN PLATELET VOLUME 8.4 fL (7.9-10.8); MONOCYTES # (AUTO) 0.8 10^3/uL (0.0-1.0); MONOCYTES % (AUTO) 6.1 %; NEUTROPHILS # (AUTO) 10.5 10^3/uL (1.5-6.6); NEUTROPHILS % (AUTO) 84.2 %; NUCLEATED RED BLOOD CELLS AUTO 0.1 /100WBC; RED BLOOD COUNT 4.19 10^6/uL (4.20-5.40); RED CELL DISTRIBUTION WIDTH 19.2 % (12.0-15.0); UNCORRECTED WHITE BLOOD COUNT 12.4 x10^3/uL; WHITE BLOOD COUNT 12.4 x10^3/uL (4.8-10.8)
[2017-01-18 04:15] LABS: HEMOGLOBIN A1C 0.46 g/dL
[2017-01-18 04:42] LABS: PHOSPHORUS 3.7 mg/dL (2.5-4.6)
[2017-01-18 05:03] LABS: ALBUMIN/GLOBULIN RATIO 1.3 (1.0-2.2); BILIRUBIN,TOTAL 1.1 mg/dL (0.2-1.0); BUN - BLOOD UREA NITROGEN 46 mg/dL (6-20); CARBON DIOXIDE - CO2 27 mmol/L (21-32); CHLORIDE 112 mmol/L (101-111); GFR - MDRD 55 (>89); GLUCOSE 137 mg/dL (70-100); POTASSIUM 4.4 mmol/L (3.5-5.0); SODIUM 147 mmol/L (135-145); TOTAL PROTEIN 5.4 g/dL (6.7-8.2)
[2017-01-18] MEDS: hydrALAZINE 25 MG TABLET PO SCH ×3 (05:27→20:54)
[2017-01-18] MEDS: PANTOPRAZOLE 40 MG TABLET PO SCH (06:40)
[2017-01-18] MEDS: ASPIRIN 325 MG TABLET PO SCH (06:40)
[2017-01-18] MEDS: amLODIPine 5 MG TABLET PO SCH (06:40)
[2017-01-18] MEDS: INSULIN ASPART 300 UNIT/3 ML PEN SUBQ SCH ×4 (08:20→20:56)
[2017-01-18 08:36] LABS: FOLATE 18.53 ng/mL (5.90 - >24.8)
[2017-01-18 08:44] LABS: THYROID STIMULATING HORMONE 0.47 uIU/mL (0.34-5.60)
[2017-01-18] MEDS: HEPARIN 5,000 UNIT/ML VIAL SUBQ SCH ×2 (08:52→20:56)
[2017-01-18] MEDS: FUROSEMIDE 40 MG TABLET PO SCH ×2 (08:54→20:53)
[2017-01-18] MEDS: METOPROLOL SUCCINATE 50 MG TABLET PO SCH (08:55)
[2017-01-18] MEDS: ALLOPURINOL 100 MG TABLET PO SCH (08:55)
[2017-01-18] MEDS ORDERED: PANTOPRAZOLE 40 MG TABLET PO SCH (09:00)
[2017-01-18] MEDS ORDERED: METOPROLOL SUCCINATE 100 MG PO SCH (09:00)
[2017-01-18] MEDS ORDERED: VENLAFAXINE HCL 37.5 MG PO SCH (09:00)
[2017-01-18] MEDS ORDERED: GABAPENTIN 300 MG CAPSULE PO SCH (09:00)
[2017-01-18] MEDS ORDERED: VENLAFAXINE ER 37.5 MG CAPSULE PO SCH (09:00)
[2017-01-18] MEDS: POLYETHYLENE GLYCOL 3350 17 GM PACKET PO SCH (09:10)
[2017-01-18] MEDS: MAGNESIUM OXIDE 400 MG TABLET PO SCH ×2 (09:10→20:55)
[2017-01-18] MEDS ORDERED: IOPAMIDOL-300 100 ML VIAL IVP ONE (09:48)
[2017-01-18] MEDS: ACETAMINOPHEN 325 MG TABLET PO PRN (10:49)
--- NOTE | 2017-01-18 10:57 | CT Preliminary Report ---
Exam: CT Neck Angio Impression: 1. There is no hemodynamically significant stenosis within the head. There is minimal calcific plaqui ng of the distal right common carotid artery and carotid bulb but without flow-limiting stenosis usin genevieve NASCET criteria. SITE ID: [id number]
--- NOTE | 2017-01-18 11:22 | CT Preliminary Report ---
Exam: CT Head Angio Impression: 1. There is a new area of subtle hypodensity suggested in the posterior right temporal lobe and right occipital lobe which may reflect areas of early subacute infarction are noted recommend correlation with the patient's clinical symptoms. There is no evidence of overt hemorrhagic transformation within the suspected area of cerebral infarction. 2. Normal postcontrast CT scan of the head. 3. There is no hemodynamically significant stenosis within the head. There is no evidence of cerebral aneurysm. 4. There is unchanged encephalomalacia of the left cerebellar hemisphere. The critical result notification system was initiated by Dr. Dionte Mosley at 11:11 hrs on 01/18/17. The above critical findings were discussed with provider Ayden by Dr. Dionte Mosley at 11:20 hrs on . SITE ID: [id number]
--- NOTE | 2017-01-18 11:29 | CT Report ---
EXAM: CT ANGIOGRAM NECK EXAM DATE: 01/18/2017 09:56 AM. CLINICAL HISTORY: Rule out new stroke. Confusion. History of CVA with similar symptoms. COMPARISON: CTA of the head with and without contrast performed on the same day.. TECHNIQUE: Routine axial helical imaging was performed from the skull base through the aortic arch. I V Contrast: Yes. Reconstructions: Routine multiplanar 3D MIP reconstructions. Evaluation of arterial stenosis is based on a NASCET method of measurement. In accordance with CT protocol optimization, one or more of the following dose reduction techniques w ere utilized for this exam: automated exposure control, adjustment of mA and/or KV based on patient s ize, or use of iterative reconstructive technique. FINDINGS: There is superimposed respiratory motion abnormality. There are small left and mild to moderate right pleural effusions. There is increased attenuation demonstrated within the imaged portions of the chele gs likely reflecting areas subsegmental atelectasis. There is straightening of the normal cervical lo rdosis. There are hldg-xs-hfnwremh degrees of facet arthropathy throughout the cervical spine. There is beam-hardening artifact from the patient's dental amalgam and or dental hardware obscuring p ortions of the oropharynx, nasopharynx, oral cavity, education manager and parotid spaces, tongue and tongue base. There is a mucous retention cyst at the base of the right and left maxillary sinuses. The mastoid air cells are normally aerated. The bilateral education manager spaces exhibit symmetric densities. The bilateral parotid spaces exhibit symmetric densities. The opening of the eustachian tubes is normally aerated. The torus tubarius are symmetric. The right fossa of rosenmueller is partially aerated. It is collapsed on the left. The parapharyngeal spaces ex hibit symmetric fat densities. The extrinsic and the intrinsic muscles of the tongue exhibit symmetric densities. There is no signif icant adenopathy in the level Ia or the bilateral level Ib rhonda chains. The free and fixed margins of the epiglottis are normal. The valleculae are symmetric. The aryepiglot tic folds and piriform sinuses are symmetric. The arytenoid cartilage, cricoid cartilage and thyroid cartilages are normal. The subglottic space is normal. There is a hypodense lesion of the isthmus measuring 18 mm. There is a hypodense lesion of the left t hyroid lobe measuring 14 mm. These are consistent with multiple thyroid nodules. There is no significant adenopathy within the imaged portions of the superior mediastinum. There is a common origin of the right brachiocephalic artery and the left common carotid artery. There is mild calcific plaquing of the distal right common carotid artery and carotid bulb but withou t flow-limiting stenosis using NASCET criteria. The extracranial right internal carotid artery is smo oth and nonstenotic. The left common carotid artery, carotid bulb and the extracranial left internal carotid artery are sm ooth and nonstenotic. The bilateral vertebral artery intradural segments are smooth and nonstenotic. IMPRESSION: 1. There is no hemodynamically significant stenosis within the head. There is minimal calcific plaqui ng of the distal right common carotid artery and carotid bulb but without flow-limiting stenosis andre vallejo NASCET criteria. Referring Provider Line: [phone] SITE ID: [id number]
[2017-01-18] MEDS ORDERED: KETOROLAC 30 MG/ML VIAL IVP ONE (11:30)
--- NOTE | 2017-01-18 11:57 | CT Report ---
EXAM: CT ANGIOGRAM HEAD EXAM DATE: 01/18/2017 09:56 AM. CLINICAL HISTORY: Confusion, rule out new CVA; history of CVA, pacer, recent pneumonia. COMPARISON: CT scan of the head without contrast 01/17/2017.. TECHNIQUE: Routine helical CTA imaging was performed through the head. IV Contrast: 100 mL Isovue-300 . Reconstructions: Routine multiplanar 3D MIP reconstructions. NASCET Criteria are used for stenosis measurements. In accordance with CT protocol optimization, one or more of the following dose reduction techniques w ere utilized for this exam: automated exposure control, adjustment of mA and/or KV based on patient s ize, or use of iterative reconstructive technique. FINDINGS: CT scan of the head without contrast: There are mucous retention cysts demonstrated at the base of the right and left maxillary sinuses. Th e remainder the paranasal sinuses are normally aerated. The bilateral mastoid air cells are normally aerated. There is no evidence of acute fracture of the calvaria. There is encephalomalacia of the posterior left cerebellar hemisphere. There is subtle hypodensity suggested within the posterior right temporal lobe. This may potentially be artifactual, but I cannot exclude the possibility of an area of early subacute cerebral infarction . Recommend correlation with the patient's clinical symptoms. There is a mild degree of periventricul ar white matter hypodensity. There is mild enlargement of the lateral ventricles and the third ventri mook but not out of proportion to the concomitant enlargement of the cerebral sulci. CT scan of the head with contrast: There is again subtle hypodensity demonstrated within the posterior right temporal lobe. There is no abnormal enhancement at this location. However, a well-defined correlate on the recent head CT from is not identified. Therefore, this may reflect an area of early subacute ischemia. Recommend correlation with the patient's clinical symptoms. There is normal enhancement within the deep venous sinuses. CT angiogram of the head: The right vertebral artery intradural segment is smooth and nonstenotic. The right posterior inferior cerebellar artery is smooth and nonstenotic. The left vertebral artery intradural segment is smooth and nonstenotic. The left posterior inferior c erebellar artery is without flow-limiting stenosis. The basilar artery is without flow-limiting stenosis. There are small right and left anterior inferio r cerebellar arteries. The right and left superior cerebellar arteries are without flow-limiting stenosis. The left P1 segme nt is smooth and nonstenotic. There is a moderate sized left posterior communicating artery. The left P2 segment of the left posterior cerebral artery is without flow-limiting stenosis. The right P1 segment is hypoplastic. The right posterior communicating artery appears to provide the predominant supply to the right P2 segment. The right P2 segment is smooth and nonstenotic. The bilateral intracranial internal carotid arteries are without flow-limiting stenosis. The right M1 and the proximal right M2 segments of the right middle cerebral artery are without flow- limiting stenosis. The left M1 and the proximal left M2 segments of the left middle cerebral artery are without flow-card iting stenosis. The bilateral A1 segments of the anterior cerebral arteries are smooth and nonstenotic. There is a sm all anterior communicating artery. The right bilateral a2 and the proximal A3 segments of the anterio r cerebral arteries are without flow-limiting stenosis. There is normal enhancement within the deep venous sinuses. IMPRESSION: 1. There is a new area of subtle hypodensity suggested in the posterior right temporal lobe and right occipital lobe which may reflect areas of early subacute cerebral infarction. Recommend correlation with the patient's clinical symptoms. There is no evidence of overt hemorrhagic transformation within the suspected area of cerebral infarction. 2. Normal postcontrast CT scan of the head. 3. There is no hemodynamically significant stenosis within the head. There is no evidence of cerebral aneurysm. 4. There is unchanged encephalomalacia of the left cerebellar hemisphere. The critical result notification system was initiated by Dr. Dionte Mosley at 11:11 hrs on 01/18/17. The above critical findings were discussed with provider Ayden by Dr. Dionte Mosley at 11:20 hrs on . Referring Provider Line: [phone] SITE ID: [id number]
[2017-01-18] MEDS: CLOPIDOGREL 75 MG TABLET PO SCH (12:09)
--- NOTE | 2017-01-18 14:53 | PROVIDER PROGRESS NOTE ---
Assessment/Plan - Problem List (1) Stroke Assessment/Plan: Patient presented with altered mental status No focal deficit just change in cognition patient slower to respond and seems withdrawn Infectious work up negative including CXR, UA and LP CT head negative Patient had not taken any sedative med for nearly 24 hours CTA this morning shows early subacute stroke of right temporal and right occipital lobe This could explain patients symptoms Plan: Add plavix patient already on ASA will need dual antiplt therapy till seen by neuro outpt PT/OT consult Will need placement for further rehab Patients mentation appears to be improving slowly Echo ordered - recent Echo did not show thrombus done a week ago at Prov Cannot do MRI secondary to new pacemaker (2) Patellar fracture Qualifiers: Encounter type: subsequent encounter Fracture type: closed Fracture morphology: longitudinal Fracture alignment: nondisplaced Laterality: left Assessment/Plan: Left patellar fx from mechanical fall Non surgical In splint Pain control with norco PT following [facility] (3) HTN (hypertension) Qualifiers: Hypertension type: essential hypertension Qualified Code(s): I10 - Essential (primary) hypertension Assessment/Plan: Allow for permissive hypertension given stroke x48 hours BP running in 150s to 180s (4) LUPIS (acute kidney injury) Assessment/Plan: Patient presented with ship scraper of 1.4 likely prerenal Given IVFs with which ship scraper is down to 1.0 Resolved (5) HUE on CPAP Assessment/Plan: On CPAP ABG did not show any hypercapnia Continue (6) Hypernatremia Assessment/Plan: Na 146 on presentation up to 147 today Will continue 0.45% NS Monitor (7) Pacemaker Assessment/Plan: Placed 3 days ago at [facility] Some ectopy last night Will interrogate PM (8) Depression Assessment/Plan: Patient does admit to being depressed due to her recent hospitalization and medical condition She states she does not want to live like this Will continue effexor Have social work evaluate her This could be secondary to the stoke with personality changes as family states she is not normally like this She will need outpatient follow up - Current Meds Current Meds: Current Medications Generic Name Dose Route Start Last Admin Trade Name Freq PRN Reason Stop Dose Admin Acetaminophen 650 mg 01/17/17 20:48 01/18/17 10:49 Tylenol PO 650 mg Q4HR PRN Administration Pain 1 to 4 Allopurinol 300 mg 01/18/17 09:00 01/18/17 08:55 Zyloprim PO 300 mg DAILY GABINO Administration Amlodipine Besylate 5 mg 01/18/17 07:00 01/18/17 06:40 Norvasc PO 5 mg QDAC GABINO Administration Aspirin 325 mg 01/18/17 07:00 01/18/17 06:40 Isabela PO 325 mg QDAC GABINO Administration Clopidogrel Bisulfate 75 mg 01/18/17 12:00 01/18/17 12:09 Plavix PO 75 mg DAILY GABINO Administration Furosemide 40 mg 01/18/17 09:00 01/18/17 08:54 Lasix PO 40 mg BID GABINO Administration Heparin Sodium (Porcine) 5,000 unit 01/18/17 09:00 01/18/17 08:52 SUBQ 5,000 unit BID GABINO Administration Hydralazine HCl 50 mg 01/18/17 06:00 01/18/17 05:27 Apresoline PO 50 mg TID GABINO Administration Sodium Chloride 1,000 mls @ 100 mls/hr 01/18/17 01:00 01/18/17 11:36 Normal Saline 0.45% IV 100 mls/hr .Q10H GABINO Administration Insulin Aspart 1 - 5 unit 01/18/17 08:00 01/18/17 13:36 Novolog SUBQ Not Given 0800,1200,1700,2100 [facility] Protocol Magnesium Oxide 400 mg 01/18/17 09:00 01/18/17 09:10 Mag Ox PO Not Given BID [facility] Metoprolol Succinate 100 mg 01/18/17 09:00 01/18/17 08:55 Toprol Xl PO 100 mg DAILY GABINO Administration Metoprolol Tartrate 5 mg 01/18/17 03:02 01/18/17 03:48 Lopressor Inj IVP 5 mg Q6H PRN Administration Hypertensive Emergency Pantoprazole Sodium 40 mg 01/18/17 07:00 01/18/17 06:40 Protonix PO 40 mg QDAC GABINO Administration Polyethylene Glycol 17 gm 01/18/17 09:00 01/18/17 09:10 Miralax PO 17 gm DAILY GABINO Administration Sodium Chloride 10 ml 01/17/17 22:00 01/18/17 05:28 Normal Saline Flush 0.9% IVP 10 ml Q8HR GABINO Administration - Lab Result Lab results reviewed: Yes Fish Bone Diagrams: 01/18/17 03:26 01/18/17 03:26 - EKG Results EKG Interpreted Independently: Yes - Diagnostic Imaging Results Diagnostic Imaging Results: positive: Final report reviewed - Additional Planning Condition/Complexity: Guarded My Orders: My Active Orders 01/18/17 Echo [Echo Transthoracic Complete] [ECHO] Routine 01/18/17 10:47 Message to Nursing [RC] QSHIFT 01/18/17 11:47 Admit \ Transfer \ Status [RC] ONCE IO [RC] IOSHIFT Vital Signs [RC] Q4HR 01/18/17 12:00 Clopidogrel [Plavix] 75 mg PO DAILY 01/18/17 21:00 Atorvastatin [Lipitor] 80 mg PO QPM 01/19/17 09:00 Venlafaxine ER [Effexor ER] 37.5 mg PO DAILY Consult/Specialty: OT, PT Plan Discussed with:: Patient, Family, Spouse Time Spent: 31-60 minutes Subjective - Subjective Patient Reports: Other (Patient perseverates, she repeats her name when asked questions. She does follow commands. Having difficulty expressing herself. She is more alert than yesterday. She also appers to be depressed. No fevers overnight.) Nursing Reports: Confused Objective Vital Signs: Vital Signs - 24 hr 01/17/17 01/17/17 01/18/17 22:49 23:00 00:00 Temperature 36.5 C Heart Rate 76 Heart Rate [ 81 81 Monitoring electrodes] Respiratory 16 17 14 Rate Blood Pressure 208/91 H Blood Pressure 152/95 H 176/86 H [Left Radial artery] O2 Saturation 93 96 95 01/18/17 01/18/17 01/18/17 00:58 01:58 03:00 Temperature Heart Rate Heart Rate [ 82 70 77 Monitoring electrodes] Respiratory 17 12 15 Rate Blood Pressure Blood Pressure 155/85 H 167/85 H 169/79 H [Left Radial artery] O2 Saturation 97 95 97 01/18/17 01/18/17 01/18/17 03:48 03:53 04:18 Temperature 36.5 C Heart Rate Heart Rate [ 65 Monitoring electrodes] Respiratory 11 L Rate Blood Pressure 182/87 H 165/81 H Blood Pressure 176/74 H [Left Radial artery] O2 Saturation 96 01/18/17 01/18/17 01/18/17 05:00 06:00 06:57 Temperature Heart Rate Heart Rate [ 70 77 76 Monitoring electrodes] Respiratory 16 10 L 13 Rate Blood Pressure Blood Pressure 180/89 H 167/92 H 173/71 H [Left Radial artery] O2 Saturation 98 96 97 01/18/17 01/18/17 01/18/17 08:00 09:00 10:00 Temperature 36.4 C L Heart Rate Heart Rate [ 77 83 75 Monitoring electrodes] Respiratory 14 18 16 Rate Blood Pressure Blood Pressure 163/78 H 188/80 H 174/79 H [Left Radial artery] O2 Saturation 98 98 96 01/18/17 01/18/17 01/18/17 11:00 12:53 14:05 Temperature 36.9 C Heart Rate Heart Rate [ 80 75 74 Monitoring electrodes] Respiratory 22 19 Rate Blood Pressure Blood Pressure 163/75 H 150/81 H 164/74 H [Left Radial artery] O2 Saturation 98 96 94 Oxygen O2 Source Patient supplied BIPAP I&O (Last 24 Hrs): Intake and Output Totals x24h 01/16/17 01/17/17 01/18/17 23:59 23:59 23:59 Intake Total 1000 1900 Output Total 2765 Balance 1000 -865 General: Alert, Cooperative, Mild distress (depressed), Other (A&Ox1, perseverating, appears to process but difficulty with exressing herself. More alert.) HEENT: Atraumatic, PERRLA, EOMI, Mucous membr. moist/pink Neck: Supple, No JVD, No thyromegaly, +2 carotid pulse wo bruit, No LAD Lymphatic: no adenopathy Neuro: Alert, Disoriented, Non Focal, CN 2-12 Grossly Intact Cardiovascular: Regular rate, Normal S1, Normal S2, No murmurs Respiratory: Chest non-tender, No respiratory distress, Breath sounds nml Abdomen: Normal bowel sounds, Soft, No tenderness, No hepatospenomegaly Extremities: No clubbing, No cyanosis, No edema, Other (LLE in sling) Skin: No rashes, No breakdown - Results Results: Laboratory Results WBC 12.4 x10^3/uL (4.8-10.8) H 01/18/17 03:26 RBC 4.19 10^6/uL (4.20-5.40) L 01/18/17 03:26 Hgb 10.5 g/dL (12.0-16.0) L 01/18/17 03:26 Hct 33.6 % (37.0-47.0) L 01/18/17 03:26 MCV 80.3 fL (81.0-99.0) L 01/18/17 03:26 MCH 25.1 pg (27.0-31.0) L 01/18/17 03:26 MCHC 31.2 g/dL (32.0-36.0) L 01/18/17 03:26 RDW 19.2 % (12.0-15.0) H 01/18/17 03:26 Plt Count 131 10^3/uL (130-450) 01/18/17 03:26 MPV 8.4 fL (7.9-10.8) 01/18/17 03:26 Neut # 10.5 10^3/uL (1.5-6.6) H 01/18/17 03:26 Lymph # 0.9 10^3/uL (1.5-3.5) L 01/18/17 03:26 Hickman # 0.8 10^3/uL (0.0-1.0) 01/18/17 03:26 Eos # 0.3 10^3/uL (0.0-0.7) 01/18/17 03:26 Baso # 0.0 10^3/uL (0.0-0.1) 01/18/17 03:26 Absolute Nucleated RBC 0.01 x10^3/uL 01/18/17 03:26 Nucleated RBCs 0.1 /100WBC 01/18/17 03:26 PT 10.3 secs (9.9-12.6) 01/17/17 12:30 INR 0.9 (0.8-1.2) 01/17/17 12:30 D-Dimer 553.7 ng/mL (200.0-255.0) H 01/18/17 03:26 Bld Gas Analysis Time 1704 01/17/17 17:04 Sample Site LEFT RADIAL 01/17/17 17:04 ABG pH 7.51 (7.35-7.45) H 01/17/17 17:04 ABG pCO2 37 mmHg (34-45) 01/17/17 17:04 ABG pO2 67 mmHg (80-100) L 01/17/17 17:04 ABG HCO3 28.8 mmol/L (22.0-26.0) H 01/17/17 17:04 ABG Total CO2 30.0 MMOL/L (21.0-29.0) H 01/17/17 17:04 ABG O2 Saturation 94 % (94-98) 01/17/17 17:04 ABG Base Excess 5.5 mmol/L (-2.0-3.0) H 01/17/17 17:04 Armen Test POSITIVE 01/17/17 17:04 Room Air YES 01/17/17 17:04 Sodium 147 mmol/L (135-145) H 01/18/17 03:26 Potassium 4.4 mmol/L (3.5-5.0) 01/18/17 03:26 Chloride 112 mmol/L (101-111) H 01/18/17 03:26 Carbon Dioxide 27 mmol/L (21-32) 01/18/17 03:26 Anion Gap 8.0 (6-13) 01/18/17 03:26 BUN 46 mg/dL (6-20) H 01/18/17 03:26 Creatinine 1.0 mg/dL (0.4-1.0) 01/18/17 03:26 Estimated GFR (MDRD) 55 (>89) L 01/18/17 03:26 Glucose 137 mg/dL (70-100) H 01/18/17 03:26 Glycated Hemoglobin 6.0 % (4.6-6.2) 01/17/17 03:26 Estim Average Glucose 126 (70-100) H 01/17/17 03:26 Calcium 8.0 mg/dL (8.5-10.3) L 01/18/17 03:26 Ionized Calcium YES 01/18/17 03:26 Phosphorus 3.7 mg/dL (2.5-4.6) 01/18/17 03:26 Magnesium 3.0 mg/dL (1.7-2.8) H 01/18/17 03:26 Total Bilirubin 1.1 mg/dL (0.2-1.0) H 01/18/17 03:26 AST 70 IU/L (10-42) H 01/18/17 03:26 ALT 92 IU/L (10-60) H 01/18/17 03:26 Alkaline Phosphatase 47 IU/L (42-121) 01/18/17 03:26 Troponin I 0.07 ng/mL (<0.49) 01/18/17 03:26 Total Protein 5.4 g/dL (6.7-8.2) L 01/18/17 03:26 Albumin 3.0 g/dL (3.2-5.5) L 01/18/17 03:26 Globulin 2.4 g/dL (2.1-4.2) 01/18/17 03:26 Albumin/Globulin Ratio 1.3 (1.0-2.2) 01/18/17 03:26 Vitamin B12 742 pg/mL (180-914) 01/18/17 03:26 Folate 18.53 ng/mL (5.90 - >24.8) 01/18/17 03:26 TSH 0.47 uIU/mL (0.34-5.60) 01/18/17 03:26 Urine Color YELLOW 01/17/17 23:30 Urine Clarity CLEAR (CLEAR) 01/17/17 23:30 Urine pH 6.0 PH (5.0-7.5) 01/17/17 23:30 Ur Specific [place] 1.015 (1.002-1.030) 01/17/17 23:30 Urine Protein 100 mg/dL (NEGATIVE) H 01/17/17 23:30 Urine Glucose (UA) NEGATIVE mg/dL (NEGATIVE) 01/17/17 23:30 Urine Ketones NEGATIVE mg/dL (NEGATIVE) 01/17/17 23:30 Urine Occult Blood MODERATE (NEGATIVE) H 01/17/17 23:30 Urine Nitrite NEGATIVE (NEGATIVE) 01/17/17 23:30 Urine Bilirubin NEGATIVE (NEGATIVE) 01/17/17 23:30 Urine Urobilinogen 0.2 (NORMAL) E.U./dL (NORMAL) 01/17/17 23:30 Ur Leukocyte Esterase NEGATIVE (NEGATIVE) 01/17/17 23:30 Urine RBC 0-5 /HPF (0-5) 01/17/17 23:30 Urine WBC 0-3 /HPF (0-5) 01/17/17 23:30 Ur Epithelial Cells FEW Transitional /HPF (<= Few) 01/17/17 14:35 Ur Squamous Epith Cells RARE Squamous (<= Few) 01/17/17 23:30 Amorphous Sediment Few /LPF 01/17/17 23:30 Urine Bacteria Rare /HPF (None Seen) 01/17/17 23:30 Ur Microscopic Review INDICATED 01/17/17 14:35 Urine Culture Comments NOT INDICATED 01/17/17 23:30 CSF Color COLORLESS (COLORLESS) 01/17/17 21:33 CSF Clarity HAZY (CLEAR) 01/17/17 21:33 Xanthrochromic ABSENT (ABSENT) 01/17/17 21:33 CSF WBC 0 /mm^3 (0-5) 01/17/17 21:33 CSF RBC 422 /mm^3 (0-1) H 01/17/17 21:33 CSF Cell Count Tube # CSF TUBE# 3 01/17/17 21:33 CSF Glucose 86 mg/dL (45-70) H 01/17/17 21:33 CSF Total Protein 42 mg/dL (15-60) 01/17/17 21:33
[2017-01-18] MEDS ORDERED: ATORVASTATIN 10 MG TABLET PO SCH (21:00)
[2017-01-18] MEDS ORDERED: ATORVASTATIN 40 MG TABLET PO SCH (21:00)
[2017-01-19] MEDS: HYDROcod/ACETAM 5/325 MG TABLET PO PRN ×3 (01:08→13:07)
[2017-01-19 05:41] LABS: BASOPHILS % (AUTO) 0.2 %; EOSINOPHILS # (AUTO) 0.7 10^3/uL (0.0-0.7); EOSINOPHILS % (AUTO) 6.2 %; HCT - HEMATOCRIT 31.4 % (37.0-47.0); HGB - HEMOGLOBIN 9.8 g/dL (12.0-16.0); LYMPHOCYTES # (AUTO) 0.9 10^3/uL (1.5-3.5); LYMPHOCYTES % (AUTO) 8.6 %; MEAN CORPUSCULAR HEMOGLOBIN 25.2 pg (27.0-31.0); MEAN CORPUSCULAR HGB CONC 31.3 g/dL (32.0-36.0); MEAN CORPUSCULAR VOLUME 80.6 fL (81.0-99.0); MEAN PLATELET VOLUME 8.8 fL (7.9-10.8); MONOCYTES # (AUTO) 0.6 10^3/uL (0.0-1.0); MONOCYTES % (AUTO) 5.2 %; NEUTROPHILS # (AUTO) 8.6 10^3/uL (1.5-6.6); NEUTROPHILS % (AUTO) 79.8 %; RED BLOOD COUNT 3.89 10^6/uL (4.20-5.40); RED CELL DISTRIBUTION WIDTH 19.6 % (12.0-15.0); UNCORRECTED WHITE BLOOD COUNT 10.7 x10^3/uL; WHITE BLOOD COUNT 10.7 x10^3/uL (4.8-10.8)
[2017-01-19 05:55] LABS: ALBUMIN/GLOBULIN RATIO 1.2 (1.0-2.2); BILIRUBIN,TOTAL 1.4 mg/dL (0.2-1.0); CREATININE 1.1 mg/dL (0.4-1.0); TOTAL PROTEIN 5.1 g/dL (6.7-8.2)
[2017-01-19] MEDS: amLODIPine 5 MG TABLET PO SCH (06:58)
[2017-01-19] MEDS: SODIUM CHLORIDE FLUSH 0.9% 10 ML SYRINGE IVP SCH (06:58)
[2017-01-19] MEDS: ASPIRIN 325 MG TABLET PO SCH (06:58)
[2017-01-19] MEDS: PANTOPRAZOLE 40 MG TABLET PO SCH (06:58)
[2017-01-19] MEDS: SODIUM CHLORIDE 0.45% 1,000 ML IV SCH (07:02)
[2017-01-19] MEDS: hydrALAZINE 25 MG TABLET PO SCH ×2 (07:02→13:13)
[2017-01-19] MEDS ORDERED: VENLAFAXINE ER 37.5 MG CAPSULE PO SCH (09:00)
[2017-01-19] MEDS: INSULIN ASPART 300 UNIT/3 ML PEN SUBQ SCH ×2 (09:17→12:56)
[2017-01-19] MEDS: MAGNESIUM OXIDE 400 MG TABLET PO SCH (09:18)
[2017-01-19] MEDS: FUROSEMIDE 40 MG TABLET PO SCH (09:18)
[2017-01-19] MEDS: ALLOPURINOL 100 MG TABLET PO SCH (09:18)
[2017-01-19] MEDS: METOPROLOL SUCCINATE 50 MG TABLET PO SCH (09:18)
[2017-01-19] MEDS: CLOPIDOGREL 75 MG TABLET PO SCH (09:18)
[2017-01-19] MEDS: POLYETHYLENE GLYCOL 3350 17 GM PACKET PO SCH (09:19)
[2017-01-19] MEDS: HEPARIN 5,000 UNIT/ML VIAL SUBQ SCH (09:38)
[2017-01-19] MEDS: ACETAMINOPHEN 325 MG TABLET PO PRN (11:48)
[2017-01-19 12:16] VITALS: BP 165/92
--- NOTE | 2017-01-20 11:00 | DISCHARGE SUMMARY ---
DATE OF ADMISSION: 01/17/2017 DATE OF DISCHARGE: 01/19/2017 PRIMARY CARE PHYSICIAN: Manuel Jin MD DISCHARGING PHYSICIAN: Shaheen Hensley MD DISCHARGE DIAGNOSES 1. Stroke. 2. Left patellar fracture. 3. Hypertension. 4. Acute kidney injury. 5. Obstructive sleep apnea, on CPAP. 6. Hypernatremia. 7. Pacemaker. 8. Depression. DISCHARGE MEDICATIONS 1. Plavix 75 mg p.o. daily. 2. Aspirin 325 mg p.o. daily. 3. Tylenol 650 mg p.o. q.4h. p.r.n. for pain. 4. Effexor 75 mg p.o. daily. 5. Lipitor 80 mg p.o. daily. 6. Amlodipine 5 mg p.o. daily. 7. Lasix 80 mg p.o. daily. 8. Hydralazine 75 mg t.i.d. 9. Clonidine 0.3 mg patch topically every 7 days. 10. Oxybutynin 15 mg p.o. every evening. 11. Albuterol sulfate 1-2 puffs inhaled q.4h. p.r.n. for dyspnea or wheezing. 12. Micardis 80 mg p.o. daily. 13. Metoprolol succinate 100 mg p.o. daily. 14. Gabapentin 600 mg every evening. 15. Gabapentin 300 mg by mouth at 2 p.m. 16. Protonix 40 mg p.o. daily. 17. Glipizide 2.5 mg p.o. daily. 18. Allopurinol 300 mg p.o. daily. 19. Zyrtec 10 mg p.o. daily. 20. [place] 5/325 mg 1-2 tablets p.o. q.4h. p.r.n. for pain. HOSPITAL COURSE: The patient is a 71-year-old female with a past medical history significant for obst ructive sleep apnea treated with home BiPAP, CVA with left hemiparesis in 1988 with minimal residual, depression and anxiety, morbid obesity, type 2 diabetes, GERD, hypertension, hyperlipidemia, asthma, osteoarthritis, osteopenia, recurrent UTIs, migraines, gout, CKD stage III, complete heart block sta tus post pacemaker in January of 2017, and recent pneumonia in January of 2017, who fractured her left bright lla 1 day ago after being discharged from [facility] post-pacemaker placement. The patient wa s sent from the emergency department to [facility] for rehabilitation. While at [facility], the patient dev eloped altered mental status and was brought into the emergency department. On presentation to the em ergency department, the patient was initially alert but not answering questions. She appeared to have difficulties processing and expressing herself. The patient appeared to be getting frustrated, but c ould not appropriately answer questions. She seemed to have a change in her cognition and personality . The patient was initially worked up for infection, her chest x-ray was negative. Her UA was negativ e. The patient had an LP, which was negative. The patient underwent initial CT scan, which was negati ve. The patient's electrolytes and CBC were pretty much within normal limits aside from slight hypern atremia and slight leukocytosis. After the patient's CT scan, the patient then had a CTA, which did r eveal a subacute stroke of the right temporal and right occipital lobes. The patient's symptoms were thought to likely be secondary to the stroke. The patient was already on aspirin for previous stroke, she did have Plavix added to her regimen. She also underwent an echocardiogram, which did not show a ny cardiac thrombus. She was not in atrial fibrillation during the hospitalization. The patient was s een by Physical Therapy and recommended to go back to [facility] for further rehabilitation. The patient will receive PT, OT and speech rehab at [facility]. The patient also has been found to have a thyroid m ass on previous scan, and will need further followup for this mass. The patient otherwise was placed in a splint in her left lower extremity and will need further rehab for this. The patient has restric tions as far as her left arm given her pacemaker placement. She is not to lift her left arm above her head. She cannot lift more than 5 pounds with the left arm. She also is not to take out the Steri-St rips that are placed on her skin for the pacemaker placement. The patient was discharged to [facility] i n guarded condition. Her family was at the bedside and understood her condition and are hopeful that she will have some recovery, but I did explain to them that it is possible that the patient may decli ne further or may not ever get back to her normal mental status; however, the therapy was the best wa y to try to recover. The patient was discharged on Plavix, aspirin, and Lipitor for optimal treatment for a recurrence of stroke. The patient will also need to follow up with her primary care physician and Urology. PHYSICAL EXAMINATION ON DISCHARGE VITAL SIGNS: Temperature 37.3, heart rate 80, blood pressure 165/92, respiratory rate 16, O2 saturati on 99% on room air. GENERAL: The patient is alert but she is still quite withdrawn. She does appear to be depressed. She has difficulty expressing herself and seems to give up when trying to answer questions. She does answ er simple questions yes and no, but she definitely has a change in her cognition from her baseline. HEENT: Pupils are equal and reactive to light. Extraocular muscles are intact. Mucous membranes are m oist. There is no conjunctival pallor or scleral icterus noted. NECK: Supple. No thyromegaly. No JVD. Trachea is midline. LYMPH NODES: There is no cervical or axillary lymphadenopathy noted. CARDIOVASCULAR: S1, S2, regular rate and rhythm. No murmurs, rubs, or gallops. LUNGS: Clear to auscultation bilaterally. No wheezes, rhonchi, or crackles. ABDOMEN: Obese, soft, nontender, nondistended. Bowel sounds are present in all 4 quadrants. EXTREMITI ES: There is no lower extremity edema. Peripheral pulses are palpable. There is no cyanosis or clubbi ng. MUSCULOSKELETAL: The patient has decreased range of motion in her left leg because of the splint and she is nonweightbearing on that left lower extremity. The patient also has decreased range of motion of her left upper extremity secondary to having the pacemaker. SKIN: There are Steri-Strips in the left chest wall. Otherwise the patient does not have any skin stephanie h, lesions, cellulitis. NEUROLOGIC: The patient is alert. She is oriented x1, she can only tell me her name. She cannot tell me where she is or the year. The patient has normal strength and normal sensations. Cranial nerves 2- 12 are grossly intact. LABORATORY: WBC is 10.7, hemoglobin 9.8, hematocrit 31.4, platelet count 113. D-dimer 553. Sodium 145 , potassium 4.0, chloride 110, carbon dioxide 27, BUN 33, creatinine 1.1, glucose 113, calcium 8.0, t otal bilirubin is 1.4, AST 53, ALT 86, alkaline phosphatase 44, total protein 5.1, albumin 2.8. UA ne gative. CSF with 0 WBCs. IMAGING 1. Chest x-ray, impression: Resolving pulmonary vascular congestion. 2. CT head, impression: No acute intracranial abnormality. Stable inferior left cerebellar encephalom alacia. 3. CTA of neck, impression: There is a new area of subtle hypodensity suggested in the posterior righ t temporal lobe and right occipital lobe, which may reflect areas of early subacute cerebral infarcti on. Recommend correlation with the patient's clinical symptoms. There is no evidence of overt hemorrh agic transformation within the suspected area of cerebral infarction. On post-contrast CT of head, th ere is no hemodynamically significant stenosis within the head. There is no significant cerebral aneu rysm. There is unchanged encephalomalacia of the left cerebellar hemisphere. FOLLOWUP/RECOMMENDATIONS: The patient is being discharged to [facility] after suffering a stroke. She is being placed on Plavix, in addition to aspirin and Lipitor. The patient will need physical therapy, occupational therapy, and speech therapy. She does have a decline in her cognition secondary to the s troke. The patient also has a thyroid mass, which will need to be worked up. She does have restrictio ns as far as her left leg after having suffered a patellar fracture. She is nonweightbearing on the l eft leg. Her left leg is in a splint. The patient also had a pacemaker placed just 2 days ago for whi ch she has restriction of not being able to lift her arm over her head on the left, and also has rest riction of lifting no more than 5 pounds with her left arm. The patient will need to follow up with h er primary care physician and we recommend that she does also follow up with a neurologist. The patient is discharged in guarded condition. Greater than 30 minutes were spent on dictation. JOB #: [id number] EXT JOB #:[id number]
== END 2017-01-19 14:18 | DRG 65 ==
LOC: EDUNIT# → ED 11:43 → ICU 21:58 → MS 01-18 15:40
PROVIDERS: ADMIT Internal Medicine; ATTEND Internal Medicine
DX: I63.9 Cerebral infarction, unspecified (principal); R41.0 Disorientation, unspecified; S82.002D Unspecified fracture of left patella, subsequent encounter for closed fracture with routine healing; I10 Essential (primary) hypertension; E78.00 Pure hypercholesterolemia, unspecified; Z86.73 Personal history of transient ischemic attack (TIA), and cerebral infarction without residual deficits; E11.9 Type 2 diabetes mellitus without complications; N17.9 Acute kidney failure, unspecified; E87.0 Hyperosmolality and hypernatremia; I69.354 Hemiplegia and hemiparesis following cerebral infarction affecting left non-dominant side; I44.2 Atrioventricular block, complete; Z68.42 Body mass index [BMI] 45.0-49.9, adult; R41.841 Cognitive communication deficit; R41.840 Attention and concentration deficit; S82.025D Nondisplaced longitudinal fracture of left patella, subsequent encounter for closed fracture with routine healing; I12.9 Hypertensive chronic kidney disease with stage 1 through stage 4 chronic kidney disease, or unspecified chronic kidney disease; G47.33 Obstructive sleep apnea (adult) (pediatric); Z95.0 Presence of cardiac pacemaker; F32.9 Major depressive disorder, single episode, unspecified; E86.0 Dehydration; E07.9 Disorder of thyroid, unspecified; E11.22 Type 2 diabetes mellitus with diabetic chronic kidney disease; N18.3 Chronic kidney disease, stage 3 (moderate); F41.9 Anxiety disorder, unspecified; E66.01 Morbid (severe) obesity due to excess calories; K21.9 Gastro-esophageal reflux disease without esophagitis; E78.5 Hyperlipidemia, unspecified; J45.909 Unspecified asthma, uncomplicated; M10.9 Gout, unspecified; Z91.81 History of falling; Z87.440 Personal history of urinary (tract) infections; Z87.01 Personal history of pneumonia (recurrent); Z79.84 Long term (current) use of oral hypoglycemic drugs; Z79.82 Long term (current) use of aspirin
CPT/HCPCS: 36415; 36600; 51701; 70450; 70496; 70498; 71020; 80048; 80053; 81001; 81003; 82270; 82330; 82607; 82746; 82803; 82945; 83036; 83735; 84100; 84157; 84443; 84484; 85025; 85379; 85610; 87040; 87070; 87086; 87150; 87205; 87529; 89051; 93306; 96361; 96374; 96375; 99284; 99285

== ENCOUNTER 2017-01-19 14:13 | Outpatient (CLI) | payer MEDICARE, OTHER | END 2017-01-19 14:14 | LOC: EMS 14:13 | PROVIDERS: ATTEND Surgery | DX: S82.401G Unspecified fracture of shaft of right fibula, subsequent encounter for closed fracture with delayed healing (principal) | CPT/HCPCS: A0425; A0429 ==

== ENCOUNTER 2017-01-20 02:28 | Outpatient (CLI) | payer MEDICARE, OTHER | END 2017-01-20 02:29 | disposition critical access hospital (66) | LOC: EMS 02:28 | PROVIDERS: ATTEND Surgery | DX: R40.0 Somnolence (principal) | CPT/HCPCS: A0425; A0429 ==

== ENCOUNTER 2017-01-20 02:33 | Inpatient (IN) | payer MEDICARE, OTHER ==
--- NOTE | 2017-01-20 02:54 | ED Physician Documentation ---
PD HPI ALTERED MENTAL STATUS - Stated complaint Stated Complaint: NON RESPONSIVE - Chief complaint Chief Complaint: Cardiac - History obtained from History obtained from: Family, EMS, Caregiver - History of Present Illness Timing - onset: Today (apparently just shortly CARPENTER/LABOR. Had been transferred to [facility] earlier today and was now nonverbal, unresponsive/ not following commands at [facility]. Recent stroke, broken patella, pacemaker placement this past week. Daughter and spouse says she was able to follow commands and talk in few words sentences/interact earlier in the day when brought over to [facility]. MAR does not show any meds given.) Timing - details: Abrupt onset (patient reportedly was interacting and following commands earlier when transferred and first arrived at [facility], then was found nonverbal and not following commands. Did have withdrawal to pain and gag reflex. No report of falls.) Quality / character: Less responsive Associated symptoms: General weakness. No: Fever Contributing factors: Anticoagulated (recently started on Plavix for CVA.), Diabetic, Recent illness (pneumonia a week ago). No: Recent injury, Known psych illness Basline status: Alert and oriented X 3, Other (had decreased interaction to short simple answers due to recent occipital CVA.) Treatment CARPENTER/LABOR: Accucheck (normal 170s), Airway management Recently seen: Emergency Dept, Admitted, Surgery (pacemaker placed at [place] 2 weeks ago, then fell and had patellar fracture after it. Was seen in hospital and developed pneumonia. Treated 5 days and released improved. The here at [facility] few days ago for altered mentation and found to have occipital CVA on CT-A of brain (could not have MRI due to recent pacemaker). Discharged to [facility] earlier this past day (about 8 hours CARPENTER/LABOR now).) Review of Systems Unable to obtain: AMS, Other (obtained some from and daughter) Constitutional: denies: Fever Eyes: reports: Decreased vision (recently with CVA) Cardiac: denies: Chest pain / pressure Respiratory: denies: Dyspnea, Cough GI: denies: Vomiting, Diarrhea Neurologic: reports: Generalized weakness. 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 MISSILE: Hysterectomy Cardiovascular: Pacemaker - Present Medications Home Medications: Ambulatory Orders Medication Instructions Recorded Confirmed Amlodipine Besylate 5 mg PO DAILY 06/06/13 01/19/17 Aspirin 325 mg PO DAILYWM 06/06/13 01/19/17 Cetirizine HCl [Zyrtec] 10 mg PO QDAC 06/06/13 01/19/17 Furosemide [Lasix] 80 mg PO DAILY 06/06/13 01/19/17 Gabapentin 300 mg PO 1400 06/06/13 01/19/17 Glipizide [Glipizide ER] 2.5 mg PO DAILY 06/06/13 01/19/17 Metoprolol Succinate 100 mg PO BID 06/06/13 01/19/17 hydrALAZINE [Apresoline] 75 mg PO TID 06/06/13 01/19/17 Allopurinol 300 mg ORAL DAILY 08/08/14 01/19/17 Albuterol Sulfate [Proair Hfa] 2 puffs INH Q4H PRN 02/01/16 01/19/17 Oxybutynin Chloride [Ditropan Xl] 15 mg PO QPM 02/01/16 01/19/17 Rosuvastatin Calcium [Crestor] 5 mg PO QPM 02/01/16 01/19/17 Venlafaxine HCl [Venlafaxine HCl 37.5 mg PO DAILY 02/01/16 01/19/17 ER] Pantoprazole [Protonix] 40 mg PO QDAC 01/16/17 01/19/17 Gabapentin [Neurontin] 600 mg PO QPM 01/19/17 01/19/17 Telmisartan [Micardis] 80 mg PO DAILY 01/19/17 01/19/17 cloNIDine 0.3 MG PATCH 1 each TOP Q7D 01/19/17 01/19/17 [Rkfynrhe-Rdx-2] - Allergies Allergies/Adverse Reactions: Allergies Allergy/AdvReac Type Severity Reaction Status Date / Time caffeine Allergy Unknown Verified 01/20/17 02:43 codeine [Codeine] AdvReac Severe Hallucinati Verified 01/20/17 02:43 ons diphenhydramine citrate * AdvReac Intermediate unknown Verified 01/20/17 02:43 [From Excedrin PM] ibuprofen [From Advil] AdvReac Intermediate unknown Verified 01/20/17 02:43 naproxen sodium * AdvReac Intermediate unknown Verified 01/20/17 02:43 [From Aleve] zolpidem tartrate * AdvReac Intermediate Hives Verified 01/20/17 02:43 [From Ambien] - Social History Does the pt smoke?: No Smoking Status: Never smoker Does the pt drink ETOH?: No Does the pt have substance abuse?: No - Immunizations Immunizations are current?: Yes - POLST Patient has POLST: No PD ED PE NORMAL - Vitals Vital signs reviewed: Yes - General General: No acute distress, Well developed/nourished (obese), Other (putting hands up to head at times. Does not follow commands. Tracks to light on exam.) - HEENT HEENT: PERRL (but are constricted bilaterally), Pharynx benign (there is a gag reflex. Right lower lip with some bruising and abrasion. ). No: Moist mucous membranes - Neck Neck: Supple, no meningeal sign (she does move head and neck on her own at times ), No adenopathy - Cardiac Cardiac: RRR, No murmur - Respiratory Respiratory: Clear bilaterally, Other (pacemaker incision left chest appears good with local bruising but no signs of infection) - Abdomen Abdomen: Soft, Non distended, Other (quite obese). No: Normal bowel sounds ( diminished) - Derm Derm: Normal color, Warm and dry - Extremities Extremities: Other (splint left lower leg and sam wrap foot to knee. 1+ edema in both legs. ) - Neuro Neuro: No motor deficit. No: Alert and oriented X 3 (opens eyes on own or to verbal. Nonverbal. localized pain.), Normal speech Results - Vitals Vitals: Vital Signs - 24 hr 01/20/17 01/20/17 01/20/17 02:33 02:46 02:47 Temperature 36.8 C Heart Rate 88 85 74 Respiratory 18 18 18 Rate Blood Pressure 170/96 H 184/85 H O2 Saturation 91 L 95 94 01/20/17 01/20/17 01/20/17 03:02 03:03 03:05 Temperature Heart Rate 90 125 H 112 H Respiratory 30 H 29 H 24 Rate Blood Pressure 184/85 H O2 Saturation 94 95 01/20/17 01/20/17 01/20/17 03:07 03:22 03:41 Temperature Heart Rate 118 H 119 H 106 H Respiratory 22 26 H Rate Blood Pressure 175/75 H 189/92 H O2 Saturation 96 95 100 Oxygen O2 Source [Without Activity] increased to 95% on RA O2 Source Non-rebreather mask Oxygen Flow Rate 2 - Labs Labs: Laboratory Tests 01/20/17 01/20/17 02:45 02:45 WBC 14.3 H RBC 4.33 Hgb 10.8 L Hct 34.7 L MCV 80.2 L MCH 24.9 L MCHC 31.1 L RDW 20.3 H Plt Count 108 L MPV 9.1 Manual Slide Review Indicated Sodium 146 H Potassium 4.4 Chloride 112 H Carbon Dioxide 27 Anion Gap 7.0 BUN 25 H Creatinine 1.0 Estimated GFR (MDRD) 55 L Glucose 169 H Calcium 8.5 Magnesium 2.3 Total Bilirubin 1.5 H AST 53 H ALT 95 H Alkaline Phosphatase 54 Total Protein 6.1 L Albumin 3.2 Globulin 2.9 Albumin/Globulin Ratio 1.1 Lipase 43 - Rads (name of study) head CT Radiology: Prelim report reviewed, Discussed with rads (no bleed. New findings in occipital and temporal lobes c/w new CVAs or consider PRES. ) PD MEDICAL DECISION MAKING - ED course Complexity details: re-evaluated patient (She does have generalized seizure with initial eye deviation to right and twitching right arm mostly. Then generalized and lasts about 1 1/2 minutes, ceasing just as Ativan is gettting injected IV. She recovers breathing and color promptly. Given Metoprolol IV for HTN and started Keppra IV dose (assume less interaction with her many meds compared to first generation antiepileptics). ), considered differential, d/w family, d/w salon sales consultant (Hospitalist) Departure - Departure Disposition: 66 [facility] DC/Xfer Clinical Impression: Seizures, generalized convulsive Condition: Fair Record reviewed to determine appropriate education?: Yes
[2017-01-20] MEDS ORDERED: LORazepam 2 MG/ML SYRINGE ONE ×2 (03:00→03:09)
[2017-01-20] MEDS ORDERED: LORazepam 2 MG/ML SYRINGE IVP PRN ×2 (03:00→04:14)
[2017-01-20] MEDS ORDERED: SODIUM CHLORIDE 0.9% 1,000 ML IV ONE (03:09)
[2017-01-20 03:20] LABS: BASOPHILS % (AUTO) 0.3 %; EOSINOPHILS # (AUTO) 0.7 10^3/uL (0.0-0.7); EOSINOPHILS % (AUTO) 4.6 %; HCT - HEMATOCRIT 34.7 % (37.0-47.0); HGB - HEMOGLOBIN 10.8 g/dL (12.0-16.0); LYMPHOCYTES # (AUTO) 0.8 10^3/uL (1.5-3.5); LYMPHOCYTES % (AUTO) 5.9 %; MEAN CORPUSCULAR HEMOGLOBIN 24.9 pg (27.0-31.0); MEAN CORPUSCULAR HGB CONC 31.1 g/dL (32.0-36.0); MEAN CORPUSCULAR VOLUME 80.2 fL (81.0-99.0); MEAN PLATELET VOLUME 9.1 fL (7.9-10.8); MONOCYTES # (AUTO) 0.6 10^3/uL (0.0-1.0); MONOCYTES % (AUTO) 4.3 %; NEUTROPHILS # (AUTO) 12.1 10^3/uL (1.5-6.6); NEUTROPHILS % (AUTO) 84.9 %; RED BLOOD COUNT 4.33 10^6/uL (4.20-5.40); RED CELL DISTRIBUTION WIDTH 20.3 % (12.0-15.0); UNCORRECTED WHITE BLOOD COUNT 14.3 x10^3/uL; WHITE BLOOD COUNT 14.3 x10^3/uL (4.8-10.8)
[2017-01-20 03:25] LABS: ALBUMIN/GLOBULIN RATIO 1.1 (1.0-2.2); BILIRUBIN,TOTAL 1.5 mg/dL (0.2-1.0); CALCIUM 8.5 mg/dL (8.5-10.3); MAGNESIUM 2.3 mg/dL (1.7-2.8); POTASSIUM 4.4 mmol/L (3.5-5.0); TOTAL PROTEIN 6.1 g/dL (6.7-8.2)
[2017-01-20] MEDS ORDERED: levETIRAcetam INJ 500 MG in SODIUM CHLORIDE 0.9% 100ML 100 ML IV STA (03:40)
[2017-01-20] MEDS ORDERED: METOPROLOL 5 MG/5 ML VIAL IVP STA (03:41)
--- NOTE | 2017-01-20 03:42 | CT Preliminary Report ---
Exam: CT Head W/O Impression: There is now symmetric hypodensity involving the occipital lobes, posterior temporal lobes, medial pa rietal lobes. Differential diagnosis includes posterior reversible encephalopathy syndrome. Infarcts could have a similar appearance. RADIA The above critical findings were discussed with provider Yifan by Dr. Serg Avalos at 03:40 hrs on 01/20/17. SITE ID: [id number]
[2017-01-20] MEDS ORDERED: METOPROLOL 5 MG/5 ML VIAL IVP ONE (03:43)
--- NOTE | 2017-01-20 03:45 | CT Report ---
EXAM: CT HEAD EXAM DATE: 01/20/2017 03:21 AM. CLINICAL HISTORY: Seizures. Unresponsive. COMPARISON: Head CT 01/18/2017. TECHNIQUE: Multiaxial CT images were obtained from the foramen magnum to the vertex. IV contrast: Non e. Reformats: Coronal. In accordance with CT protocol optimization, one or more of the following dose reduction techniques w ere utilized for this exam: automated exposure control, adjustment of mA and/or KV based on patient s ize, or use of iterative reconstructive technique. FINDINGS: There are roughly symmetric areas of cortical and subcortical hypodensity is seen within the cerebral hemispheres bilaterally. These involve the occipital lobes bilaterally laterally with some extension into the posterior temporal lobes, medial parietal lobes. Similar findings on the right on the prior exam, these are better defined and hypodense. Findings on the left are new. There is no hemorrhage or significant mass effect. No extracerebral fluid collection or hydrocephalus . Skull base and bone windows are unremarkable. Impression: There is now symmetric hypodensity involving the occipital lobes, posterior temporal lobes, medial pa rietal lobes. Differential diagnosis includes posterior reversible encephalopathy syndrome. Infarcts could have a similar appearance. RADIA The above critical findings were discussed with provider Yifan by Dr. Serg Avalos at 03:40 hrs on 01/20/17. Referring Provider Line: [phone] SITE ID: [id number]
[2017-01-20] MEDS ORDERED: SODIUM CHLORIDE 0.9% MINIBAG 100 ML IV ONE (03:47)
[2017-01-20] MEDS ORDERED: ONDANSETRON 4 MG/2 ML VIAL IVP PRN (03:49)
[2017-01-20] MEDS ORDERED: ALBUTEROL NEB 2.5 MG/3 ML INH PRN (03:49)
[2017-01-20 03:51] LABS: BILIRUBIN,URINE NEGATIVE (NEGATIVE)
[2017-01-20 03:52] LABS: UA w/ MICROSCOPIC CHARGE YES
[2017-01-20 03:52] LABS: PLATELET ESTIMATE, MANUAL DECREASED (<130,000) (NORMAL); PLATELET MORPHOLOGY NORMAL APPEARANCE (NORMAL)
--- NOTE | 2017-01-20 04:00 | XRAY Preliminary Report ---
Exam: XR Chest 1 View IMPRESSION: Progression of vascular congestion. Stable mild enlargement of the cardiac silhouette. [facility] SITE ID: [id number]
--- NOTE | 2017-01-20 04:03 | HISTORY & PHYSICAL EXAMINATION ---
Chief Complaint - Chief Complaint Chief Complaint: seizure History of Present Illness - Admitted From Admitted From:: ed - History Obtained From Records Reviewed: yes- EMR History obtained from: ED, records Exam Limitations: mental status - History of Present Illness HPI Comment/Other: Pt sent from [facility] for new onset seizures. Just discharged yesterday from here. this patient arrived at [facility] yesterday. early this morning, she was noted to have seiz Seizure activity. She was transported back to the emergency room for evaluation. She had another seizure in the emergency room, which probably resolved spontaneously, just as they were giving IV Ativan. Repeat head CT confirms the strokes and diagnosed 2 days ago. Currently, the patient is quite somnolent. She is not able to answer questions or follow commands. (HPI from 01/17/17: this 71-year-old white female is sent to the emergency room today from [facility]. She has had a fairly complicated course oover the last week. Approximately one week ago she was admitted to [facility] in [place]. where she had syncope, and heart block. She apparently also was diagnosed with heart block.. She had a right sided temporary pacemaker put in place, and they treated her for pneumonia for about 7 days,, and then put in the permanent pacemaker. They sent her directly from the ICU, back to home, 2 days ago. Getting out of the car at home, she fell, and fractured her left patella. brim edge trimmer were called to get her back in her house. She was unable to get out of her chair afterwards, so her family brought her to our emergency room for evaluation, it yesterday. Yesterday, he our evaluation showed elevated white blood cell count,, but negative urinalysis and chest x-ray. The patient was felt to need physical therapy for her new left patella fracture.. She was sent over to [facility]. She was reportedly alert and clearheaded at that time here. However, this morning, when she awakened, she was very confused. She could not seem to recognize people, or speak articulately. She was sent back over to our emergency room. It appears she received one dose of Vicodin, perhaps last night.. Her family reports that she has had adverse reactions to narcotics in the past,, but her daughter feels this confusion is much worse than previous narcotic reactions.. ER evaluation today, showed a normal head CT, without obvious new stroke or hemorrhage. Chest x-ray and urinalysis are reported as normal. Vital signs have been fairly stable. However, her mental status is definitely waxing and waning. Lumbar puncture was just performed, and initial tube is slightly pink tinged, , but other tubes appear clear. This patient will need to be admitted,, as she can obviously not be transferred out until we understand the cause of her altered mental status. her family says she has not been complaining of fever or chills,, headaches or dizziness,, cough or shortness of breath.. Her notes she was noting soreness in her right upper chest area, where the temporary pacemaker was. Otherwise she did not report chest pain, abdominal pain,, nausea or vomiting. He says she was complaining of diarrhea, but he noted minimal stool.. There was bright red blood in yesterday stool. She did not report dysuria.) Past medical history Obstructive sleep apnea,, treated with home BiPAP CVA with left hemiparesis in 1988, with minimal residual. 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 In Ditropan XL 15 mg every afternoon Metoprolol succinate 100 mg bid? Glipizide 2.5 mg daily Gabapentin 300 mg daily at 2 pm, 600 mg q pm Lasix 80 mg qd Clonidine 0.3 patch topically q. Thursday Cetirizine 10 mg daily Aspirin 325 mg daily Amlodipine 5 mg daily Allopurinol 300 mg daily Albuterol inhaler 2 puffs every 4 hour Telmisartan 80 mg qd past surgical history: Recent pacemaker. 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. total hysterectomy. thoracic 6 vertebroplasty in 2007. allergies: Caffeine Codeine causes hallucinations Benadryl Ibuprofen and Naprosyn Ambien causes hives family history: Mother at age 103, natural causes. Father from an aneurysm in his 90s. Social history: The patient is and lives with her . She does not use tobacco, alcohol,, drugs. History - Past Medical History Cardiovascular: reports: Hypertension, High cholesterol, Murmur Respiratory: reports: Asthma, CPAP use Neuro: reports: CVA Endocrine/Autoimmune: reports: Type 2 diabetes GI: reports: GERD : reports: Incontinence, Frequency HEENT: reports: None Psych: reports: Depression, Anxiety Musculoskeletal: reports: Osteoarthritis Derm: reports: None MRSA Hx?: No - Past Surgical History General: reports: 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 /PROPERTY CLERK: reports: Hysterectomy Cardiovascular: reports: Pacemaker - POLST Patient has POLST: No Meds/Allgy - Home Medications History - Past Medical History Cardiovascular: reports: Hypertension, High cholesterol, Murmur Respiratory: reports: Asthma, CPAP use Neuro: reports: CVA Endocrine/Autoimmune: reports: Type 2 diabetes GI: reports: GERD : reports: Incontinence, Frequency HEENT: reports: None Psych: reports: Depression, Anxiety Musculoskeletal: reports: Osteoarthritis Derm: reports: None MRSA Hx?: No - Past Surgical History General: reports: 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 /PROPERTY CLERK: reports: Hysterectomy Cardiovascular: reports: Pacemaker - POLST Patient has POLST: No Meds/Allgy - Home Medications Home Medications: Ambulatory Orders Medication Instructions Recorded Confirmed Amlodipine Besylate 5 mg PO DAILY 06/06/13 01/19/17 Aspirin 325 mg PO DAILYWM 06/06/13 01/19/17 Cetirizine HCl [Zyrtec] 10 mg PO QDAC 06/06/13 01/19/17 Furosemide [Lasix] 80 mg PO DAILY 06/06/13 01/19/17 Gabapentin 300 mg PO 1400 06/06/13 01/19/17 Glipizide [Glipizide ER] 2.5 mg PO DAILY 06/06/13 01/19/17 Metoprolol Succinate 100 mg PO BID 06/06/13 01/19/17 hydrALAZINE [Apresoline] 75 mg PO TID 06/06/13 01/19/17 Allopurinol 300 mg ORAL DAILY 08/08/14 01/19/17 Albuterol Sulfate [Proair Hfa] 2 puffs INH Q4H PRN 02/01/16 01/19/17 Oxybutynin Chloride [Ditropan Xl] 15 mg PO QPM 02/01/16 01/19/17 Rosuvastatin Calcium [Crestor] 5 mg PO QPM 02/01/16 01/19/17 Venlafaxine HCl [Venlafaxine HCl 37.5 mg PO DAILY 02/01/16 01/19/17 ER] Pantoprazole [Protonix] 40 mg PO QDAC 01/16/17 01/19/17 Gabapentin [Neurontin] 600 mg PO QPM 01/19/17 01/19/17 Telmisartan [Micardis] 80 mg PO DAILY 01/19/17 01/19/17 cloNIDine 0.3 MG PATCH 1 each TOP Q7D 01/19/17 01/19/17 [[id number]] - Allergies Allergies/Adverse Reactions: Allergies Allergy/AdvReac Type Severity Reaction Status Date / Time caffeine Allergy Unknown Verified 01/20/17 02:43 codeine [Codeine] AdvReac Severe Hallucinati Verified 01/20/17 02:43 ons diphenhydramine citrate * AdvReac Intermediate unknown Verified 01/20/17 02:43 [From Excedrin PM] ibuprofen [From Advil] AdvReac Intermediate unknown Verified 01/20/17 02:43 naproxen sodium * AdvReac Intermediate unknown Verified 01/20/17 02:43 [From Aleve] zolpidem tartrate * AdvReac Intermediate Hives Verified 01/20/17 02:43 [From Ambien] Exam - Vital Signs Reviewed Vital Signs: Yes Vital Signs: Vital Signs x48h Temp Pulse Resp BP Pulse Ox 01/20/17 03:46 101 H 22 186/104 H 100 01/20/17 03:41 106 H 26 H 189/92 H 100 01/20/17 03:22 119 H 22 95 01/20/17 03:07 118 H 175/75 H 96 01/20/17 03:05 112 H 24 95 01/20/17 03:03 125 H 29 H 184/85 H 94 01/20/17 03:02 90 30 H 01/20/17 02:47 74 18 184/85 H 94 01/20/17 02:46 85 18 95 01/20/17 02:33 36.8 C 88 18 170/96 H 91 L on exam, somnolent elderly white female.. She is currently wearing ooxygen via facemask.. Carriage did not send over her CPAP machine.. She keeps her eyes closed, And appears quite sedated. head: Normocephalic, atraumatic. Ears: TMs and canals are mostly clear. There is moderate cerumen noted in the left ear canal. Eyes: pupils are fairly pinpoint.PERRLA, EOMI could not be tested,, anicteric. Pharynx: the patient was unable to open her mouth on command. When we tried it open, there is a fair amount of blood,, presumably from her biting her tongue.. Neck: Appears supple, without lymphadenopathy,, JVD, thyromegaly, bruits. Heart: Has a regular rhythm, which is paced. A 2/6 systolic ejection murmur is noted, loudest at the apex. No rubs or gallops are noted. Left upper chest has the new pacemaker,, and this area is bruised as well. Lungs: Breath sounds were a little difficult to hear,, and the patient has snoring respirations, which adds a lot of of upper airway noise. Abdomen: Is markedly obese, but without obvious masses or tenderness. Bowel sounds appear active. There is no obvious guarding or rebound Extremities: Left leg is placed in a splint and wrapped from her knee to her toes,, regarding recent patellar fracture. Bilateral legs are generally puffy.. There are scattered bruises noted on both legs. There is no obvious cyanosis,, or clubbing. Neurologic: condition is mostly obtunded, and does not follow commands.. Conclusion/Plan - Lab Results Fish Bones: 01/20/17 02:45 01/20/17 02:45 Other Lab Results: a CT of the brain: Symmetric hypodensity involving the occipital, posterior temporal, and medial parietal lobes. Consider posterior reversible encephalopathy syndrome, versus infarcts. EKG shows a paced rhythm at 77.. Issues/Core Measures - Anticipated LOS Anticipated Stay Length: 2 or more midnights - Issues Hospital Issues and Management Plan: assessment and plan: #1. Neurologic. -this patient was diagnosed with new occipital and temporal lobe strokes 2 days ago. She now presents with new onset seizures,, likely due to her strokes. -Admit to ICU for close observation. Start IV Keppra. Use IV Ativan when necessary.. Seizure precautions. -recent blood and CSF cultures are negative so far. -hopefully she will become more alert once the Ativan wears off. Continue attempts at physical and occupational therapy. -continue Plavix and aspirin. #2. Cardiac. This patient had recent heart block, which was treated with a temporary pacemaker,, followed by permanent pacemaker pl,, within the last week. The pacemaker appears to be Functioning normally. Blood cultures are pending, to try to be sure there is no device - associated bacteremia. -She is relatively hypertensive, but this will not be addressed too aggressively ,, given the recent stroke. -Reported history of valvular heart d Disease. If she turns out to be bacteremic ,, she may need followup echocardiogram. #3. Endocrine. -Type II diabetes. Accu-Cheks and coverage with sliding scale insinsulin. -On hold glipizide, until is stable. #4. Infectious disease. The patient presented with elevated white blood cell count, and left shift. this may be due to stress. -CSF and blood cultures are pending. #5. Orthopedic.. -New left patella fracture. Orthopedics apparently advised either a splint or a boot.. -Order physical therapy evaluation -Patient can normally ambulate with a walker. #6. Pulmonary. -Continue CPAP for known obstructive sleep apnea. her daughter well get her machine [facility] [place]. -reported history of asthma. Add albuterol if needed. #7. Psychiatric. History of depression Continue usual Effexor. #8. Renal. Mildly elevated sodium and chloride. Monitor after hydration #9. GI. -continue treatment of GERD with PPI. #10. Colon CODE STATUS: Full code.this was reviewed again with her . #11. DVT prophylaxis: Subcutaneous heparin. tthis visit took approximately 60 minutes,, to review records,, examined the patient,, write orders, and review case with the ER Matthew
--- NOTE | 2017-01-20 04:03 | XRAY Report ---
EXAM: CHEST RADIOGRAPHY EXAM DATE: 01/20/2017 03:37 AM. CLINICAL HISTORY: Congested breathing. COMPARISON: 01/17/2017. TECHNIQUE: 1 view. FINDINGS: Lungs/Pleura: No focal opacities evident. No pleural effusion. No pneumothorax. Mediastinum: Stable mild enlargement of the cardiac silhouette. Pulmonary vascular congestion appears to have progressed. Other: There is a left subclavian pacemaker device with the tips at the right atrium and right ventri mook apex. IMPRESSION: Progression of vascular congestion. Stable mild enlargement of the cardiac silhouette. [facility] Referring Provider Line: [phone] SITE ID: [id number]
[2017-01-20 04:19] LABS: UR CULTURE IF IND NOT INDICATED
[2017-01-20] MEDS ORDERED: cloNIDine 0.3 MG PATCH TOP SCH ×2 (05:00→10:00)
[2017-01-20] MEDS ORDERED: hydrALAZINE INJ 20 MG/ML VIAL IVP PRN (06:36)
[2017-01-20] MEDS ORDERED: METOPROLOL 5 MG/5 ML VIAL IVP PRN (06:38)
[2017-01-20] MEDS: hydrALAZINE 25 MG TABLET PO SCH ×2 (06:54→14:24)
[2017-01-20] MEDS: SODIUM CHLORIDE FLUSH 0.9% 10 ML SYRINGE IVP SCH ×2 (06:55→09:39)
[2017-01-20] MEDS ORDERED: PANTOPRAZOLE 40 MG TABLET PO SCH (07:00)
[2017-01-20] MEDS: ENALAPRILAT 1.25 MG/ML VIAL IVP SCH ×3 (07:12→17:07)
[2017-01-20 07:27] LABS: BASOPHILS # (AUTO) 0.1 10^3/uL (0.0-0.1); BASOPHILS % (AUTO) 0.4 %; EOSINOPHILS # (AUTO) 0.2 10^3/uL (0.0-0.7); EOSINOPHILS % (AUTO) 1.4 %; HCT - HEMATOCRIT 34.5 % (37.0-47.0); HGB - HEMOGLOBIN 10.7 g/dL (12.0-16.0); LYMPHOCYTES # (AUTO) 0.5 10^3/uL (1.5-3.5); LYMPHOCYTES % (AUTO) 3.5 %; MEAN CORPUSCULAR VOLUME 80.6 fL (81.0-99.0); MEAN PLATELET VOLUME 8.5 fL (7.9-10.8); MONOCYTES # (AUTO) 0.6 10^3/uL (0.0-1.0); MONOCYTES % (AUTO) 4.1 %; NEUTROPHILS # (AUTO) 13.3 10^3/uL (1.5-6.6); NEUTROPHILS % (AUTO) 90.6 %; NUCLEATED RED BLOOD CELLS AUTO 0.1 /100WBC; RED BLOOD COUNT 4.27 10^6/uL (4.20-5.40); RED CELL DISTRIBUTION WIDTH 19.8 % (12.0-15.0); UNCORRECTED WHITE BLOOD COUNT 14.7 x10^3/uL; WHITE BLOOD COUNT 14.7 x10^3/uL (4.8-10.8)
[2017-01-20 07:36] LABS: ALBUMIN/GLOBULIN RATIO 1.1 (1.0-2.2); BILIRUBIN,TOTAL 1.4 mg/dL (0.2-1.0); CALCIUM 8.4 mg/dL (8.5-10.3); POTASSIUM 4.5 mmol/L (3.5-5.0); TOTAL PROTEIN 5.9 g/dL (6.7-8.2)
[2017-01-20] MEDS: INSULIN REGULAR HUMAN 100 UNIT/1 ML 10 ML MDV SUBQ SCH ×3 (07:48→17:07)
[2017-01-20] MEDS: CETIRIZINE 10 MG TABLET PO SCH (07:49)
[2017-01-20] MEDS ORDERED: ASPIRIN 325 MG TABLET PO SCH (08:00)
[2017-01-20] MEDS ORDERED: LOSARTAN 50 MG TABLET PO SCH (09:00)
[2017-01-20] MEDS ORDERED: FUROSEMIDE 40 MG TABLET PO SCH (09:00)
[2017-01-20] MEDS ORDERED: levETIRAcetam 250 MG TABLET PO SCH ×2 (09:00)
[2017-01-20] MEDS ORDERED: FUROSEMIDE 100 MG/10 ML VIAL IVP SCH (09:00)
[2017-01-20] MEDS: ALLOPURINOL 100 MG TABLET PO SCH (09:17)
[2017-01-20] MEDS: amLODIPine 5 MG TABLET PO SCH (09:18)
[2017-01-20] MEDS: VENLAFAXINE ER 37.5 MG CAPSULE PO SCH (09:19)
--- NOTE | 2017-01-20 09:27 | ED Physician Documentation ---
ED Addendum - Addendum Addendum: 01/20/17 09:27 unscheduled return visit - chart accessed for follow up and educational purposes
[2017-01-20] MEDS: HEPARIN 5,000 UNIT/ML VIAL SUBQ SCH ×2 (09:34→21:04)
[2017-01-20] MEDS: PANTOPRAZOLE 40 MG VIAL IVP SCH (09:39)
[2017-01-20] MEDS: FUROSEMIDE INJ 100mg VIAL 80 MG in SODIUM CHLORIDE 0.9% 50 ML IVP SCH (09:39)
[2017-01-20] MEDS ORDERED: levETIRAcetam INJ 500 MG in SODIUM CHLORIDE 0.9% 100ML 100 ML IV SCH (10:00)
--- NOTE | 2017-01-20 11:00 | PROVIDER PROGRESS NOTE ---
Assessment/Plan - Problem List (1) Seizures, generalized convulsive Assessment/Plan: She appears to be postictal. In the last two hours she has imporved her level of alertness. She opens eyes and follows some simple commands. No further seizures. (2) Acute CVA (cerebrovascular accident) Assessment/Plan: She is now 2 1/2 days post CVA. will lower SBP to <[address] Henderson at [facility] and recomends increasing the Keppra to 1 gm bid Discussed the MRI issue and repeating the CT if not improving and also adding Phosphenotoin if needed for partial seizures. - Current Meds Current Meds: Current Medications Generic Name Dose Route Start Last Admin Trade Name Freq PRN Reason Stop Dose Admin Allopurinol 300 mg 01/20/17 09:00 01/20/17 09:17 Zyloprim PO Not Given DAILY GABINO Amlodipine Besylate 5 mg 01/20/17 09:00 01/20/17 09:18 Norvasc PO Not Given DAILY GABINO Aspirin 325 mg 01/20/17 08:00 01/20/17 09:17 Isabela PO Not Given DAILYWM GABINO Cetirizine HCl 10 mg 01/20/17 07:00 01/20/17 07:49 Zyrtec PO Not Given QDAC GABINO Clonidine HCl 0.3 patch 01/20/17 10:00 01/20/17 09:39 [id number]-Gib-3 TOP 0.3 patch Q7D GABINO Administration Enalaprilat 1.25 mg 01/20/17 07:00 01/20/17 07:12 Vasotec Inj IVP 1.25 mg Q6HR GABINO Administration Heparin Sodium (Porcine) 5,000 unit 01/20/17 09:00 01/20/17 09:34 SUBQ 5,000 unit BID GABINO Administration Hydralazine HCl 75 mg 01/20/17 06:00 01/20/17 06:54 Apresoline PO Not Given TID GABINO Hydralazine HCl 10 mg 01/20/17 06:36 01/20/17 06:53 Apresoline Inj IVP 10 mg Q1H PRN Administration Blood Pressure Furosemide 80 mg/ Sodium 58 mls @ 240 mls/hr 01/20/17 09:00 01/20/17 09:39 Chloride IVP 240 mls/hr DAILY GABINO Administration Levetiracetam 500 mg/ Sodium 105 mls @ 400 mls/hr 01/20/17 10:00 01/20/17 10:01 Chloride IV 400 mls/hr BID GABINO Administration Insulin Human Regular 1 - 5 unit 01/20/17 07:00 01/20/17 07:48 Novolin R SUBQ Not Given Q6HR GABINO Protocol Lorazepam 1 mg 01/20/17 03:00 01/20/17 03:00 Ativan Inj IVP 1 mg Q2HR PRN Administration Anxiety Pantoprazole Sodium 40 mg 01/20/17 09:00 01/20/17 09:39 Protonix IVP 40 mg DAILY GABINO Administration Sodium Chloride 10 ml 01/20/17 06:00 01/20/17 09:39 Normal Saline Flush 0.9% IVP 10 ml Q8HR GABINO Administration Venlafaxine HCl 37.5 mg 01/20/17 09:00 01/20/17 09:19 Effexor Er PO Not Given DAILY GABINO - Lab Result Fish Bone Diagrams: 01/20/17 07:13 01/20/17 07:13 Subjective - Subjective Nursing Reports: Confused, Sedated Objective Vital Signs: Vital Signs - 24 hr 01/20/17 01/20/17 01/20/17 03:59 04:02 04:50 Temperature 36.6 C Heart Rate 94 91 Heart Rate [ 88 Monitoring electrodes] Respiratory 22 20 21 Rate Blood Pressure 183/89 H 170/86 H Blood Pressure 178/98 H [Left Brachial artery] Blood Pressure [Right Radial artery] O2 Saturation 98 100 100 01/20/17 01/20/17 01/20/17 05:00 06:00 06:49 Temperature 36.5 C Heart Rate Heart Rate [ 86 88 80 Monitoring electrodes] Respiratory 20 21 21 Rate Blood Pressure Blood Pressure [Left Brachial artery] Blood Pressure 168/96 H 171/95 H 170/90 H [Right Radial artery] O2 Saturation 100 98 99 01/20/17 01/20/17 01/20/17 06:53 07:35 08:00 Temperature Heart Rate 76 Heart Rate [ 88 Monitoring electrodes] Respiratory 21 20 Rate Blood Pressure 171/94 H Blood Pressure [Left Brachial artery] Blood Pressure 168/90 H [Right Radial artery] O2 Saturation 100 01/20/17 01/20/17 01/20/17 09:00 09:16 10:00 Temperature 36.5 C Heart Rate Heart Rate [ 85 74 Monitoring electrodes] Respiratory 19 20 Rate Blood Pressure 169/82 H Blood Pressure [Left Brachial artery] Blood Pressure 169/82 H 163/83 H [Right Radial artery] O2 Saturation 98 99 Oxygen O2 Source Oxymask I&O (Last 24 Hrs): Intake and Output Totals x24h 01/18/17 01/19/17 01/20/17 23:59 23:59 23:59 Intake Total 1358 Output Total 1215 Balance 143 General: No acute distress HEENT: PERRLA, EOMI Neck: No JVD, No thyromegaly Neuro: Focal Deficits, Other (Difficult to assess. Appears to have R leg paresis. Also cognition depressed. but has improved in the last 3 hours.) Cardiovascular: Regular rate, No murmurs Respiratory: No respiratory distress, Breath sounds nml Abdomen: Soft, No tenderness Skin: No rashes, No significant lesion - Results Results: Laboratory Results WBC 14.7 x10^3/uL (4.8-10.8) H 01/20/17 07:13 RBC 4.27 10^6/uL (4.20-5.40) 01/20/17 07:13 Hgb 10.7 g/dL (12.0-16.0) L 01/20/17 07:13 Hct 34.5 % (37.0-47.0) L 01/20/17 07:13 MCV 80.6 fL (81.0-99.0) L 01/20/17 07:13 MCH 25.0 pg (27.0-31.0) L 01/20/17 07:13 MCHC 31.0 g/dL (32.0-36.0) L 01/20/17 07:13 RDW 19.8 % (12.0-15.0) H 01/20/17 07:13 Plt Count 98 10^3/uL (130-450) L 01/20/17 07:13 MPV 8.5 fL (7.9-10.8) 01/20/17 07:13 Neut # 13.3 10^3/uL (1.5-6.6) H 01/20/17 07:13 Lymph # 0.5 10^3/uL (1.5-3.5) L 01/20/17 07:13 Prentiss # 0.6 10^3/uL (0.0-1.0) 01/20/17 07:13 Eos # 0.2 10^3/uL (0.0-0.7) 01/20/17 07:13 Baso # 0.1 10^3/uL (0.0-0.1) 01/20/17 07:13 Absolute Nucleated RBC 0.01 x10^3/uL 01/20/17 07:13 Nucleated RBCs 0.1 /100WBC 01/20/17 07:13 Manual Slide Review Indicated 01/20/17 02:45 Platelet Estimate DECREASED (<130,000) (NORMAL) 01/20/17 02:45 Platelet Morphology NORMAL APPEARANCE (NORMAL) 01/20/17 02:45 RBC Morph Micro Appear 1+ ANISOCYTOSIS (NORMAL) 01/20/17 02:45 Sodium 146 mmol/L (135-145) H 01/20/17 07:13 Potassium 4.5 mmol/L (3.5-5.0) 01/20/17 07:13 Chloride 111 mmol/L (101-111) 01/20/17 07:13 Carbon Dioxide 27 mmol/L (21-32) 01/20/17 07:13 Anion Gap 8.0 (6-13) 01/20/17 07:13 BUN 25 mg/dL (6-20) H 01/20/17 07:13 Creatinine 1.0 mg/dL (0.4-1.0) 01/20/17 07:13 Estimated GFR (MDRD) 55 (>89) L 01/20/17 07:13 Glucose 124 mg/dL (70-100) H 01/20/17 07:13 Calcium 8.4 mg/dL (8.5-10.3) L 01/20/17 07:13 Magnesium 2.3 mg/dL (1.7-2.8) 01/20/17 02:45 Total Bilirubin 1.4 mg/dL (0.2-1.0) H 01/20/17 07:13 AST 51 IU/L (10-42) H 01/20/17 07:13 ALT 90 IU/L (10-60) H 01/20/17 07:13 Alkaline Phosphatase 51 IU/L (42-121) 01/20/17 07:13 Total Protein 5.9 g/dL (6.7-8.2) L 01/20/17 07:13 Albumin 3.1 g/dL (3.2-5.5) L 01/20/17 07:13 Globulin 2.8 g/dL (2.1-4.2) 01/20/17 07:13 Albumin/Globulin Ratio 1.1 (1.0-2.2) 01/20/17 07:13 Lipase 43 U/L (22-51) 01/20/17 02:45 Urine Color YELLOW 01/20/17 03:36 Urine Clarity CLEAR (CLEAR) 01/20/17 03:36 Urine pH 7.0 PH (5.0-7.5) 01/20/17 03:36 Ur Specific [place] 1.020 (1.002-1.030) 01/20/17 03:36 Urine Protein >=300 mg/dL (NEGATIVE) H 01/20/17 03:36 Urine Glucose (UA) NEGATIVE mg/dL (NEGATIVE) 01/20/17 03:36 Urine Ketones NEGATIVE mg/dL (NEGATIVE) 01/20/17 03:36 Urine Occult Blood MODERATE (NEGATIVE) H 01/20/17 03:36 Urine Nitrite NEGATIVE (NEGATIVE) 01/20/17 03:36 Urine Bilirubin NEGATIVE (NEGATIVE) 01/20/17 03:36 Urine Urobilinogen 0.2 (NORMAL) E.U./dL (NORMAL) 01/20/17 03:36 Ur Leukocyte Esterase NEGATIVE (NEGATIVE) 01/20/17 03:36 Urine RBC 0-5 /HPF (0-5) 01/20/17 03:36 Urine WBC 4-5 /HPF (0-5) 01/20/17 03:36 Ur Squamous Epith Cells RARE Squamous (<= Few) 01/20/17 03:36 Urine Bacteria None Seen /HPF (None Seen) 01/20/17 03:36 Ur Microscopic Review INDICATED 01/20/17 03:36 Urine Culture Comments NOT INDICATED 01/20/17 03:36
[2017-01-20] MEDS: SODIUM CHLORIDE FLUSH 0.9% 10 ML SYRINGE IVP PRN ×2 (12:47→17:07)
[2017-01-20] MEDS: GABAPENTIN 300 MG CAPSULE PO SCH (14:24)
[2017-01-20] MEDS: levETIRAcetam INJ 1,000 MG in SODIUM CHLORIDE 0.9% 100ML 100 ML IV SCH (21:03)
[2017-01-21] MEDS: ENALAPRILAT 1.25 MG/ML VIAL IVP SCH ×2 (00:08→06:31)
[2017-01-21] MEDS: SODIUM CHLORIDE FLUSH 0.9% 10 ML SYRINGE IVP SCH ×4 (00:10→21:18)
[2017-01-21] MEDS: ATORVASTATIN 10 MG TABLET PO SCH ×2 (00:11→21:14)
[2017-01-21] MEDS: GABAPENTIN 300 MG CAPSULE PO SCH ×3 (00:11→21:14)
[2017-01-21] MEDS: hydrALAZINE 25 MG TABLET PO SCH ×6 (00:12→21:16)
[2017-01-21] MEDS: INSULIN REGULAR HUMAN 100 UNIT/1 ML 10 ML MDV SUBQ SCH ×2 (00:12→06:31)
[2017-01-21 05:07] LABS: BASOPHILS # (AUTO) 0.1 10^3/uL (0.0-0.1); BASOPHILS % (AUTO) 0.7 %; EOSINOPHILS # (AUTO) 0.3 10^3/uL (0.0-0.7); EOSINOPHILS % (AUTO) 3.2 %; HCT - HEMATOCRIT 31.8 % (37.0-47.0); HGB - HEMOGLOBIN 9.9 g/dL (12.0-16.0); LYMPHOCYTES # (AUTO) 0.7 10^3/uL (1.5-3.5); LYMPHOCYTES % (AUTO) 7.3 %; MEAN CORPUSCULAR HEMOGLOBIN 25.1 pg (27.0-31.0); MEAN CORPUSCULAR HGB CONC 31.3 g/dL (32.0-36.0); MEAN CORPUSCULAR VOLUME 80.3 fL (81.0-99.0); MEAN PLATELET VOLUME 8.7 fL (7.9-10.8); MONOCYTES # (AUTO) 0.6 10^3/uL (0.0-1.0); MONOCYTES % (AUTO) 6.6 %; NEUTROPHILS # (AUTO) 7.5 10^3/uL (1.5-6.6); NEUTROPHILS % (AUTO) 82.2 %; RED BLOOD COUNT 3.96 10^6/uL (4.20-5.40); RED CELL DISTRIBUTION WIDTH 20.5 % (12.0-15.0); UNCORRECTED WHITE BLOOD COUNT 9.1 x10^3/uL; WHITE BLOOD COUNT 9.1 x10^3/uL (4.8-10.8)
[2017-01-21 05:17] LABS: ALBUMIN/GLOBULIN RATIO 1.2 (1.0-2.2); CALCIUM 8.2 mg/dL (8.5-10.3); POTASSIUM 3.8 mmol/L (3.5-5.0); TOTAL PROTEIN 5.1 g/dL (6.7-8.2)
[2017-01-21 05:34] LABS: PLATELET ESTIMATE, MANUAL DECREASED (<130,000) (NORMAL); PLATELET MORPHOLOGY NORMAL APPEARANCE (NORMAL)
--- NOTE | 2017-01-21 07:50 | PROVIDER PROGRESS NOTE ---
Assessment/Plan - Problem List (1) Seizures, generalized convulsive Assessment/Plan: Shelia has not had anymore seizures. She is now .24 hrs without seizures. She is waking up and responding . she is moving all extremities but R leg weaker. She is to have diet advanced. She needs PT and OT needs focus on cognitive rehab as well. (2) Acute CVA (cerebrovascular accident) Assessment/Plan: She is not back to discharge level of function but has improved greatly the past 24 hours. Will resume PT and OT. Will go back to SNF to continue rehab in 2 days+/- - Current Meds Current Meds: Current Medications Generic Name Dose Route Start Last Admin Trade Name Freq PRN Reason Stop Dose Admin Allopurinol 300 mg 01/20/17 09:00 01/20/17 09:17 Zyloprim PO Not Given DAILY GABINO Amlodipine Besylate 5 mg 01/20/17 09:00 01/20/17 09:18 Norvasc PO Not Given DAILY GABINO Atorvastatin Calcium 20 mg 01/20/17 21:00 01/21/17 00:11 Lipitor PO Not Given QPM GABINO Cetirizine HCl 10 mg 01/20/17 07:00 01/20/17 07:49 Zyrtec PO Not Given QDAC GABINO Clonidine HCl 0.3 patch 01/20/17 10:00 01/20/17 09:39 Sdtuthwc-Nlc-2 TOP 0.3 patch Q7D GABINO Administration Gabapentin 300 mg 01/20/17 14:00 01/20/17 14:24 Neurontin PO Not Given 1400 GABINO Gabapentin 600 mg 01/20/17 21:00 01/21/17 00:11 Neurontin PO Not Given QPM GABINO Heparin Sodium (Porcine) 5,000 unit 01/20/17 09:00 01/20/17 21:04 SUBQ 5,000 unit BID GABINO Administration Furosemide 80 mg/ Sodium 58 mls @ 240 mls/hr 01/20/17 09:00 01/20/17 09:39 Chloride IVP 240 mls/hr DAILY GABINO Administration Levetiracetam 1,000 mg/ Sodium 110 mls @ 400 mls/hr 01/20/17 21:00 01/20/17 21: 03 Chloride IV 400 mls/hr BID GABINO Administration Insulin Human Regular 1 - 5 unit 01/20/17 07:00 01/21/17 06:31 Novolin R SUBQ Not Given Q6HR GABINO Protocol Lorazepam 1 mg 01/20/17 03:00 01/20/17 03:00 Ativan Inj IVP 1 mg Q2HR PRN Administration Anxiety Pantoprazole Sodium 40 mg 01/20/17 09:00 01/20/17 09:39 Protonix IVP 40 mg DAILY GABINO Administration Sodium Chloride 10 ml 01/20/17 03:49 01/20/17 17:07 Normal Saline Flush 0.9% IVP 10 ml PRN PRN Administration NEEDED PER PROVIDER ORDERS Sodium Chloride 10 ml 01/20/17 06:00 01/21/17 06:32 Normal Saline Flush 0.9% IVP 10 ml Q8HR GABINO Administration Venlafaxine HCl 37.5 mg 01/20/17 09:00 01/20/17 09:19 Effexor Er PO Not Given DAILY GABINO - Lab Result Fish Bone Diagrams: 01/21/17 05:00 01/21/17 05:00 - Additional Planning My Orders: My Active Orders 01/20/17 21:00 levETIRAcetam INJ [Keppra Inj] 1,000 mg Sodium Chloride 0.9% 100Ml [Normal Saline 0.9% 100Ml] 100 ml IV BID 01/21/17 05:00 MAGNESIUM [CHEM] DAILYLAB PHOSPHORUS [CHEM] DAILYLAB 01/21/17 09:00 Aspirin EC [Ecotrin] 325 mg PO DAILY Metoprolol Succinate [Toprol Xl] 100 mg PO DAILY hydrALAZINE [Apresoline] 25 mg PO QID 01/21/17 Lunch DIET [Soft (Low Fiber) Diet] [DIET] 01/22/17 05:00 MAGNESIUM [CHEM] DAILYLAB PHOSPHORUS [CHEM] DAILYLAB 01/23/17 05:00 MAGNESIUM [CHEM] DAILYLAB Subjective - Subjective Patient Reports: Resting Comfortably Nursing Reports: Confused Objective Vital Signs: Vital Signs - 24 hr 01/20/17 01/20/17 01/20/17 08:00 09:00 09:16 Temperature 36.5 C Heart Rate 76 Heart Rate [ 85 Monitoring electrodes] Respiratory 20 19 Rate Blood Pressure 169/82 H Blood Pressure 169/82 H [Right Radial artery] O2 Saturation 98 01/20/17 01/20/17 01/20/17 10:00 11:00 12:00 Temperature 36.8 C Heart Rate Heart Rate [ 74 71 77 Monitoring electrodes] Respiratory 20 19 21 Rate Blood Pressure Blood Pressure 163/83 H 163/84 H 170/91 H [Right Radial artery] O2 Saturation 99 94 97 01/20/17 01/20/17 01/20/17 13:00 14:00 15:00 Temperature Heart Rate Heart Rate [ 86 67 73 Monitoring electrodes] Respiratory 22 15 22 Rate Blood Pressure Blood Pressure 167/80 H 165/76 H 168/75 H [Right Radial artery] O2 Saturation 96 94 96 01/20/17 01/20/17 01/20/17 16:00 17:00 18:00 Temperature 36.7 C Heart Rate Heart Rate [ 72 79 70 Monitoring electrodes] Respiratory 19 17 15 Rate Blood Pressure Blood Pressure 179/82 H 175/80 H 170/78 H [Right Radial artery] O2 Saturation 94 96 94 01/20/17 01/20/17 01/20/17 18:57 20:00 21:00 Temperature 36.9 C Heart Rate Heart Rate [ 77 69 77 Monitoring electrodes] Respiratory 17 16 14 Rate Blood Pressure Blood Pressure 162/82 H 150/75 H 154/82 H [Right Radial artery] O2 Saturation 97 94 97 01/20/17 01/20/17 01/21/17 22:00 23:00 00:00 Temperature 36.7 C Heart Rate Heart Rate [ 74 76 72 Monitoring electrodes] Respiratory 16 17 15 Rate Blood Pressure Blood Pressure 150/72 H 157/79 H 152/68 H [Right Radial artery] O2 Saturation 95 96 96 01/21/17 01/21/17 01/21/17 01:00 02:00 03:00 Temperature Heart Rate Heart Rate [ 66 67 82 Monitoring electrodes] Respiratory 13 9 L 17 Rate Blood Pressure Blood Pressure 144/77 H 157/78 H 152/97 H [Right Radial artery] O2 Saturation 96 97 96 01/21/17 01/21/17 01/21/17 04:00 05:00 06:00 Temperature Heart Rate Heart Rate [ 69 64 61 Monitoring electrodes] Respiratory 15 13 15 Rate Blood Pressure Blood Pressure 154/79 H 147/76 H 145/77 H [Right Radial artery] O2 Saturation 96 96 97 01/21/17 01/21/17 07:00 07:42 Temperature 36.8 C Heart Rate Heart Rate [ 63 76 Monitoring electrodes] Respiratory 13 18 Rate Blood Pressure Blood Pressure 162/78 H 156/74 H [Right Radial artery] O2 Saturation 98 97 Oxygen O2 Source Room air I&O (Last 24 Hrs): Intake and Output Totals x24h 01/19/17 01/20/17 01/21/17 23:59 23:59 23:59 Intake Total 1768 90 Output Total 3620 415 Balance -1852 -325 General: Alert HEENT: PERRLA, EOMI Neck: Supple, No JVD, No thyromegaly Neuro: Alert, Non Focal Cardiovascular: Regular rate, No murmurs Respiratory: Chest non-tender, No respiratory distress, Breath sounds nml Abdomen: Normal bowel sounds, Soft, No tenderness Extremities: No cyanosis, No edema Skin: No rashes, No breakdown - Results Results: Laboratory Results WBC 9.1 x10^3/uL (4.8-10.8) 01/21/17 05:00 RBC 3.96 10^6/uL (4.20-5.40) L 01/21/17 05:00 Hgb 9.9 g/dL (12.0-16.0) L 01/21/17 05:00 Hct 31.8 % (37.0-47.0) L 01/21/17 05:00 MCV 80.3 fL (81.0-99.0) L 01/21/17 05:00 MCH 25.1 pg (27.0-31.0) L 01/21/17 05:00 MCHC 31.3 g/dL (32.0-36.0) L 01/21/17 05:00 RDW 20.5 % (12.0-15.0) H 01/21/17 05:00 Plt Count 87 10^3/uL (130-450) L 01/21/17 05:00 MPV 8.7 fL (7.9-10.8) 01/21/17 05:00 Neut # 7.5 10^3/uL (1.5-6.6) H 01/21/17 05:00 Lymph # 0.7 10^3/uL (1.5-3.5) L 01/21/17 05:00 [place] # 0.6 10^3/uL (0.0-1.0) 01/21/17 05:00 Eos # 0.3 10^3/uL (0.0-0.7) 01/21/17 05:00 Baso # 0.1 10^3/uL (0.0-0.1) 01/21/17 05:00 Absolute Nucleated RBC 0.00 x10^3/uL 01/21/17 05:00 Nucleated RBCs 0.0 /100WBC 01/21/17 05:00 Manual Slide Review Indicated 01/21/17 05:00 Platelet Estimate DECREASED (<130,000) (NORMAL) 01/21/17 05:00 Platelet Morphology NORMAL APPEARANCE (NORMAL) 01/21/17 05:00 RBC Morph Micro Appear 2+ ANISOCYTOSIS (NORMAL) 01/21/17 05:00 Sodium 147 mmol/L (135-145) H 01/21/17 05:00 Potassium 3.8 mmol/L (3.5-5.0) 01/21/17 05:00 Chloride 113 mmol/L (101-111) H 01/21/17 05:00 Carbon Dioxide 27 mmol/L (21-32) 01/21/17 05:00 Anion Gap 7.0 (6-13) 01/21/17 05:00 BUN 24 mg/dL (6-20) H 01/21/17 05:00 Creatinine 1.0 mg/dL (0.4-1.0) 01/21/17 05:00 Estimated GFR (MDRD) 55 (>89) L 01/21/17 05:00 Glucose 106 mg/dL (70-100) H 01/21/17 05:00 Calcium 8.2 mg/dL (8.5-10.3) L 01/21/17 05:00 Magnesium 2.3 mg/dL (1.7-2.8) 01/20/17 02:45 Total Bilirubin 1.0 mg/dL (0.2-1.0) 01/21/17 05:00 AST 60 IU/L (10-42) H 01/21/17 05:00 ALT 80 IU/L (10-60) H 01/21/17 05:00 Alkaline Phosphatase 49 IU/L (42-121) 01/21/17 05:00 Total Protein 5.1 g/dL (6.7-8.2) L 01/21/17 05:00 Albumin 2.8 g/dL (3.2-5.5) L 01/21/17 05:00 Globulin 2.3 g/dL (2.1-4.2) 01/21/17 05:00 Albumin/Globulin Ratio 1.2 (1.0-2.2) 01/21/17 05:00 Lipase 43 U/L (22-51) 01/20/17 02:45 Urine Color YELLOW 01/20/17 03:36 Urine Clarity CLEAR (CLEAR) 01/20/17 03:36 Urine pH 7.0 PH (5.0-7.5) 01/20/17 03:36 Ur Specific [place] 1.020 (1.002-1.030) 01/20/17 03:36 Urine Protein >=300 mg/dL (NEGATIVE) H 01/20/17 03:36 Urine Glucose (UA) NEGATIVE mg/dL (NEGATIVE) 01/20/17 03:36 Urine Ketones NEGATIVE mg/dL (NEGATIVE) 01/20/17 03:36 Urine Occult Blood MODERATE (NEGATIVE) H 01/20/17 03:36 Urine Nitrite NEGATIVE (NEGATIVE) 01/20/17 03:36 Urine Bilirubin NEGATIVE (NEGATIVE) 01/20/17 03:36 Urine Urobilinogen 0.2 (NORMAL) E.U./dL (NORMAL) 01/20/17 03:36 Ur Leukocyte Esterase NEGATIVE (NEGATIVE) 01/20/17 03:36 Urine RBC 0-5 /HPF (0-5) 01/20/17 03:36 Urine WBC 4-5 /HPF (0-5) 01/20/17 03:36 Ur Squamous Epith Cells RARE Squamous (<= Few) 01/20/17 03:36 Urine Bacteria None Seen /HPF (None Seen) 01/20/17 03:36 Ur Microscopic Review INDICATED 01/20/17 03:36 Urine Culture Comments NOT INDICATED 01/20/17 03:36
[2017-01-21 07:59] LABS: MAGNESIUM 2.2 mg/dL (1.7-2.8); PHOSPHORUS 3.6 mg/dL (2.5-4.6)
[2017-01-21] MEDS: ACETAMINOPHEN 325 MG TABLET PO PRN (08:53)
[2017-01-21] MEDS: VENLAFAXINE ER 37.5 MG CAPSULE PO SCH (08:54)
[2017-01-21] MEDS: CETIRIZINE 10 MG TABLET PO SCH (08:55)
[2017-01-21] MEDS: ALLOPURINOL 100 MG TABLET PO SCH (08:55)
[2017-01-21] MEDS: amLODIPine 5 MG TABLET PO SCH (08:56)
[2017-01-21] MEDS: PANTOPRAZOLE 40 MG VIAL IVP SCH (09:01)
[2017-01-21] MEDS: SODIUM CHLORIDE FLUSH 0.9% 10 ML SYRINGE IVP PRN (09:01)
[2017-01-21] MEDS: METOPROLOL SUCCINATE 50 MG TABLET PO SCH (09:06)
[2017-01-21] MEDS: ASPIRIN EC 325 MG TABLET PO SCH (09:07)
[2017-01-21] MEDS: FUROSEMIDE INJ 100mg VIAL 80 MG in SODIUM CHLORIDE 0.9% 50 ML IVP SCH (09:10)
[2017-01-21] MEDS: HEPARIN 5,000 UNIT/ML VIAL SUBQ SCH ×2 (09:11→21:14)
[2017-01-21] MEDS: levETIRAcetam INJ 1,000 MG in SODIUM CHLORIDE 0.9% 100ML 100 ML IV SCH ×2 (09:12→21:18)
[2017-01-21] MEDS: NYSTATIN CREAM 15 GM TUBE TOP SCH ×2 (11:39→21:18)
[2017-01-21] MEDS: INSULIN ASPART 300 UNIT/3 ML PEN SUBQ SCH ×3 (14:58→21:16)
--- NOTE | 2017-01-21 21:16 | XRAY Preliminary Report ---
Exam: XR Knee 4 View LT IMPRESSION: 1. Stable nondisplaced lateral patellar fracture. 2. Osteoarthritis. [facility] SITE ID: [id number]
--- NOTE | 2017-01-21 21:18 | XRAY Report ---
EXAM: LEFT KNEE RADIOGRAPHY EXAM DATE: 01/21/2017 09:02 PM. CLINICAL HISTORY: Patella fracture recheck. COMPARISON: 01/16/2017. TECHNIQUE: 4 views. FINDINGS: Bones: Stable nondisplaced lateral vertical patellar fracture. Joints: Stable degenerative changes, worst medially. No effusion. No subluxations. Soft Tissues: Normal. No soft tissue swelling. IMPRESSION: 1. Stable nondisplaced lateral patellar fracture. 2. Osteoarthritis. [facility] Referring Provider Line: [phone] SITE ID: [id number]
[2017-01-22 06:10] LABS: BASOPHILS # (AUTO) 0.1 10^3/uL (0.0-0.1); BASOPHILS % (AUTO) 0.7 %; EOSINOPHILS # (AUTO) 0.6 10^3/uL (0.0-0.7); EOSINOPHILS % (AUTO) 6.5 %; HCT - HEMATOCRIT 29.6 % (37.0-47.0); HGB - HEMOGLOBIN 9.3 g/dL (12.0-16.0); LYMPHOCYTES % (AUTO) 10.9 %; MEAN CORPUSCULAR HEMOGLOBIN 25.6 pg (27.0-31.0); MEAN CORPUSCULAR HGB CONC 31.5 g/dL (32.0-36.0); MEAN CORPUSCULAR VOLUME 81.3 fL (81.0-99.0); MONOCYTES # (AUTO) 0.6 10^3/uL (0.0-1.0); MONOCYTES % (AUTO) 7.3 %; NEUTROPHILS # (AUTO) 6.7 10^3/uL (1.5-6.6); NEUTROPHILS % (AUTO) 74.6 %; RED BLOOD COUNT 3.64 10^6/uL (4.20-5.40); RED CELL DISTRIBUTION WIDTH 21.1 % (12.0-15.0); UNCORRECTED WHITE BLOOD COUNT 8.9 x10^3/uL; WHITE BLOOD COUNT 8.9 x10^3/uL (4.8-10.8)
[2017-01-22 06:17] LABS: ALBUMIN/GLOBULIN RATIO 1.2 (1.0-2.2); BILIRUBIN,TOTAL 0.8 mg/dL (0.2-1.0); CALCIUM 8.2 mg/dL (8.5-10.3); CREATININE 1.1 mg/dL (0.4-1.0); PHOSPHORUS 4.1 mg/dL (2.5-4.6); POTASSIUM 3.9 mmol/L (3.5-5.0); TOTAL PROTEIN 4.9 g/dL (6.7-8.2)
[2017-01-22 06:35] LABS: PLATELET ESTIMATE, MANUAL DECREASED (<130,000) (NORMAL)
[2017-01-22] MEDS: CETIRIZINE 10 MG TABLET PO SCH (06:44)
[2017-01-22] MEDS: SODIUM CHLORIDE FLUSH 0.9% 10 ML SYRINGE IVP SCH ×5 (06:44→22:12)
--- NOTE | 2017-01-22 07:14 | PROVIDER PROGRESS NOTE ---
Subjective - Prog Note Date Prog Note Date: 01/22/17 Prog Note Time: 07:11 - Subjective Pt reports feeling: No change (Still with some left knee pain since her fall last Thursday.) Objective - Vital Signs/Intake & Output Vital Signs: Vital Signs x48h Temp Pulse Resp BP Pulse Ox 01/22/17 01:03 36.9 C 62 18 130/75 94 Intake & Output: Intake & Output 01/19/17 01/20/17 01/21/17 01/22/17 23:59 23:59 23:59 23:59 Intake Total 1768 1727 400 Output Total 3620 1315 250 Balance -1852 -738 150 - Lab Results Fish Bones: 01/22/17 05:10 01/22/17 05:10 Other Labs: Lab Results x24hrs 01/22/17 01/22/17 01/21/17 Range/Units 05:10 05:10 05:03 WBC 8.9 (4.8-10.8) x10^3/uL RBC 3.64 L (4.20-5.40) 10^6/uL Hgb 9.3 L (12.0-16.0) g/dL Hct 29.6 L (37.0-47.0) % MCV 81.3 (81.0-99.0) fL MCH 25.6 L (27.0-31.0) pg MCHC 31.5 L (32.0-36.0) g/dL RDW 21.1 H (12.0-15.0) % Plt Count 88 L (130-450) 10^3/uL MPV 10.0 (7.9-10.8) fL Neut # 6.7 H (1.5-6.6) 10^3/uL Lymph # 1.0 L (1.5-3.5) 10^3/uL [place] # 0.6 (0.0-1.0) 10^3/uL Eos # 0.6 (0.0-0.7) 10^3/uL Baso # 0.1 (0.0-0.1) 10^3/uL Absolute Nucleated RBC 0.00 x10^3/uL Nucleated RBCs 0.0 /100WBC Manual Slide Review Indicated Platelet Estimate DECREASED (<130,000) (NORMAL) RBC Morph Micro Appear 1+ OVALOCYTES (NORMAL) Sodium 145 (135-145) mmol/L Potassium 3.9 (3.5-5.0) mmol/L Chloride 109 (101-111) mmol/L Carbon Dioxide 28 (21-32) mmol/L Anion Gap 8.0 (6-13) BUN 27 H (6-20) mg/dL Creatinine 1.1 H (0.4-1.0) mg/dL Estimated GFR (MDRD) 49 L (>89) Glucose 98 (70-100) mg/dL Calcium 8.2 L (8.5-10.3) mg/dL Phosphorus 4.1 3.6 (2.5-4.6) mg/dL Magnesium 2.0 2.2 (1.7-2.8) mg/dL Total Bilirubin 0.8 (0.2-1.0) mg/dL AST 56 H (10-42) IU/L ALT 80 H (10-60) IU/L Alkaline Phosphatase 43 (42-121) IU/L Total Protein 4.9 L (6.7-8.2) g/dL Albumin 2.7 L (3.2-5.5) g/dL Globulin 2.2 (2.1-4.2) g/dL Albumin/Globulin Ratio 1.2 (1.0-2.2) - Diagnostic Imaging Diagnostic Imaging Comments: XR (in splint): show non displaced vertical patella fracture - no interval change - Other Results/Comments Other Results/Comments: EXAM: left knee in long leg splint. Moves toes well. Sensation intact. Good cap filling. Right leg: grossly has some sensation present. Some voluntary motion of right toes and hip seen Assessment/Plan - Problem List (1) Patellar fracture Impression: Closed non displaced left vertical patella fracture S/P acute CVA, affecting right side with some right sided weakness. PLAN: Will discuss treatment options with patient and her family. Operative vs non operative treatment. Operative treatment will allow earlier left knee motion and faster rehab on her stronger side, although with some surgical risk. Will preoceed per patient and her family wishes. Qualifiers: Encounter type: subsequent encounter Fracture type: closed Fracture morphology: longitudinal Fracture alignment: nondisplaced Laterality: left
[2017-01-22] MEDS ORDERED: ceFAZolin 2 GM/50 ML 50 ML IV SCH (07:45)
--- NOTE | 2017-01-22 07:49 | CONSULTATION NOTE ---
DATE OF CONSULTATION: 01/22/2017 00:00:00 REQUESTING PROVIDER: Dr. Adalid Durbin HISTORY OF PRESENT ILLNESS: The patient is a 71-year-old female who apparently had a ground -level fall approximately 6 days ago. She was evaluated in the emergency room here at [facility], where she was noted to have a nondisplaced vertical fracture, closed, of her left patella fracture. She was placed in a long leg posterior splint. She was to follow up in the orthopedic clini c in approximately 10-14 days. In the meantime, however, the patient has developed an acute cerebrova scular accident and on the left side, which has affected her right side extremities. She now has resi dual weakness to her right side. Because of her recent stroke, it becomes more imperative that she irving s as functional left lower extremity as possible as quickly as possible. PHYSICAL EXAM: The patient's left leg is in a long leg posterior splint. She moves her toes well. Sen sation appeared to be intact. Good capillary filling noted. On the right side, she does have some mot ion of her left foot and toes and her left hip on command. Sensation also appears to be grossly intac t as well in the right lower extremity. X-RAYS (in her long leg splint): Left patellar fracture shows a vertical-type fracture, which is nond isplaced. There are no interval changes from the original X-rays taken in the emergency room 6 days a go. ASSESSMENT 1. Nondisplaced closed vertical fracture of the left patella - 6 days out. 2. Status post acute left cerebrovascular accident - resulting in residual right-sided weakness. PLAN: I have discussed with the patient and also her family the pros and cons of proceeding with kaelyn ulated screw fixation of her nondisplaced vertical left patella fracture. As noted earlier in this no te, this would facilitate earlier mobilization of her knee, as well as earlier ambulation as tolerat ed in her post-stroke rehabilitation. Family is going to discuss the pros and cons of proceeding with surgery and will let us know later today whether we should proceed with fixation while she is here i n the hospital versus whether they will go with nonoperative treatment of this fracture. JOB #: [id number] EXT JOB #:[id number]
[2017-01-22] MEDS: amLODIPine 5 MG TABLET PO SCH (09:23)
[2017-01-22] MEDS: ASPIRIN EC 325 MG TABLET PO SCH (09:23)
[2017-01-22] MEDS: ALLOPURINOL 100 MG TABLET PO SCH (09:23)
[2017-01-22] MEDS: INSULIN ASPART 300 UNIT/3 ML PEN SUBQ SCH ×4 (09:23→22:09)
[2017-01-22] MEDS: FUROSEMIDE INJ 100mg VIAL 80 MG in SODIUM CHLORIDE 0.9% 50 ML IVP SCH (09:24)
[2017-01-22] MEDS: HEPARIN 5,000 UNIT/ML VIAL SUBQ SCH (09:24)
[2017-01-22] MEDS: hydrALAZINE 25 MG TABLET PO SCH ×4 (09:25→22:10)
[2017-01-22] MEDS: NYSTATIN CREAM 15 GM TUBE TOP SCH ×2 (09:25→22:12)
[2017-01-22] MEDS: VENLAFAXINE ER 37.5 MG CAPSULE PO SCH (09:25)
[2017-01-22] MEDS: METOPROLOL SUCCINATE 50 MG TABLET PO SCH (09:36)
[2017-01-22] MEDS: levETIRAcetam INJ 1,000 MG in SODIUM CHLORIDE 0.9% 100ML 100 ML IV SCH ×2 (09:36→22:10)
[2017-01-22] MEDS: SODIUM CHLORIDE FLUSH 0.9% 10 ML SYRINGE IVP PRN (09:36)
[2017-01-22] MEDS: PANTOPRAZOLE 40 MG VIAL IVP SCH (09:36)
[2017-01-22] MEDS ORDERED: LACTATED RINGERS 1,000 ML IV ONE (12:32)
[2017-01-22] MEDS ORDERED: ONDANSETRON 4 MG/2 ML VIAL IVP ONE (13:22)
[2017-01-22] MEDS ORDERED: ePHEDrine 50 MG/ML AMP IVP ONE (13:22)
[2017-01-22] MEDS ORDERED: LIDOCAINE-MPF 2% 5 ML VIAL IM ONE (13:22)
[2017-01-22] MEDS ORDERED: fentaNYL 100 MCG/2 ML VIAL IVP ONE (13:22)
[2017-01-22] MEDS ORDERED: SUCCINYLCHOLINE 200 MG/10 ML VIAL IVP ONE (13:22)
[2017-01-22] MEDS ORDERED: PHENYLEPHRINE 50 MG/5 ML VIAL IV ONE (13:22)
[2017-01-22] MEDS ORDERED: PROPOFOL 200 MG/20 ML VIAL IVP ONE (13:22)
[2017-01-22] MEDS ORDERED: METOCLOPRAMIDE 10 MG/2 ML VIAL IVP ONE (13:22)
[2017-01-22] MEDS ORDERED: ACETAMINOPHEN 1,000 MG/100 ML VIAL IV ONE (13:22)
[2017-01-22] MEDS: GABAPENTIN 300 MG CAPSULE PO SCH ×2 (13:29→22:11)
[2017-01-22] MEDS ORDERED: SENNA 8.6 MG TABLET PO PRN (13:37)
[2017-01-22] MEDS ORDERED: SODIUM CHLORIDE FLUSH 0.9% 10 ML SYRINGE IVP PRN (13:37)
[2017-01-22] MEDS ORDERED: ACETAMINOPHEN 1,000 MG/100 ML 100 ML IV PRN (13:37)
[2017-01-22] MEDS ORDERED: ACETAMINOPHEN 325 MG TABLET PO PRN (13:37)
[2017-01-22] MEDS ORDERED: PROCHLORPERAZINE 10 MG/2 ML VIAL IVP PRN (13:37)
[2017-01-22] MEDS ORDERED: MORPHINE 2 MG/ML SYRINGE IVP PRN (13:37)
[2017-01-22] MEDS ORDERED: DOCUSATE SODIUM 100 MG CAPSULE PO PRN (13:37)
[2017-01-22] MEDS ORDERED: ONDANSETRON 4 MG/2 ML VIAL IVP PRN (13:37)
--- NOTE | 2017-01-22 13:37 | OPERATIVE REPORT ---
Operative Report - General Admit Date: 01/20/17 Procedure Date: 01/22/17 Planned Procedure: Cannulated screw fixation of left patella fracture Pre-Op Diagnosis: Left patella fracture Post Op Diagnosis: Same - Procedure Note Primary Surgeon: Emery Lilly MD Anesthesia Provider: Victorino Villa Anesthesia Technique: General ET tube Estimated Blood Loss (in cc): 50 Complications: None
--- NOTE | 2017-01-22 13:38 | PROVIDER PROGRESS NOTE ---
Assessment/Plan - Problem List (1) Seizures, generalized convulsive Assessment/Plan: Shelia has not had any seizures since her initial seizures on admission. She is on Keppra 1 gm bid. She is eating and mentating well and will be changed to pills. (2) Acute CVA (cerebrovascular accident) Assessment/Plan: She has primarily R leg weakness. She is getting patella surgery today She will then start on her therapy. She will be able to weight bear in 10-14 days. - Current Meds Current Meds: Current Medications Generic Name Dose Route Start Last Admin Trade Name Freq PRN Reason Stop Dose Admin Acetaminophen 650 mg 01/20/17 03:49 01/21/17 08:53 Tylenol PO 650 mg Q4HR PRN Administration Pain 1 to 4 Albuterol 2.5 mg 01/20/17 03:49 01/21/17 15:43 INH 2.5 mg Q4HR PRN Administration Wheezing Allopurinol 300 mg 01/20/17 09:00 01/22/17 09:23 Zyloprim PO Not Given DAILY GABINO Amlodipine Besylate 5 mg 01/20/17 09:00 01/22/17 09:23 Norvasc PO Not Given DAILY GABINO Aspirin 325 mg 01/21/17 09:00 01/22/17 09:23 Ecotrin PO Not Given DAILY GABINO Atorvastatin Calcium 20 mg 01/20/17 21:00 01/21/17 21:14 Lipitor PO 20 mg QPM GABINO Administration Cetirizine HCl 10 mg 01/20/17 07:00 01/22/17 06:44 Zyrtec PO 10 mg QDAC GABINO Administration Clonidine HCl 0.3 patch 01/20/17 10:00 01/20/17 09:39 [id number]-Der-[id number] TOP 0.3 patch Q7D GABINO Administration Gabapentin 300 mg 01/20/17 14:00 01/22/17 13:29 Neurontin PO Not Given 1400 GABINO Gabapentin 600 mg 01/20/17 21:00 01/21/17 21:14 Neurontin PO 600 mg QPM GABINO Administration Heparin Sodium (Porcine) 5,000 unit 01/20/17 09:00 01/22/17 09:24 SUBQ Not Given BID GABINO Hydralazine HCl 25 mg 01/21/17 09:00 01/22/17 12:33 Apresoline PO Not Given QID GABINO Furosemide 80 mg/ Sodium 58 mls @ 240 mls/hr 01/20/17 09:00 01/22/17 09:24 Chloride IVP Not Given DAILY GABINO Levetiracetam 1,000 mg/ Sodium 110 mls @ 400 mls/hr 01/20/17 21:00 01/22/17 09: 36 Chloride IV 400 mls/hr BID GABINO Administration Cefazolin Sodium/Dextrose 50 mls @ 100 mls/hr 01/22/17 07:45 01/22/17 12:28 Ancef 2 Gm/50 Ml IV 01/22/17 17:00 Not Given ONCE [facility] Insulin Aspart 1 - 5 unit 01/21/17 12:00 01/22/17 12:04 Novolog SUBQ Not Given 0800,1200,1700,2100 [facility] Protocol Lorazepam 1 mg 01/20/17 03:00 01/20/17 03:00 Ativan Inj IVP 1 mg Q2HR PRN Administration Anxiety Metoprolol Succinate 100 mg 01/21/17 09:00 01/22/17 09:36 Toprol Xl PO 100 mg DAILY GABINO Administration Nystatin 1 applic 01/21/17 11:00 01/22/17 09:25 Mycostatin Cream TOP Not Given BID GABINO Pantoprazole Sodium 40 mg 01/20/17 09:00 01/22/17 09:36 Protonix IVP 40 mg DAILY GABINO Administration Sodium Chloride 10 ml 01/20/17 03:49 01/22/17 09:36 Normal Saline Flush 0.9% IVP 20 ml PRN PRN Administration NEEDED PER PROVIDER ORDERS Sodium Chloride 10 ml 01/20/17 06:00 01/22/17 13:29 Normal Saline Flush 0.9% IVP Not Given Q8HR [facility] Venlafaxine HCl 37.5 mg 01/20/17 09:00 01/22/17 09:25 Effexor Er PO Not Given DAILY GABINO - Lab Result Fish Bone Diagrams: 01/22/17 05:10 01/22/17 05:10 - Additional Planning My Orders: My Active Orders 01/22/17 00:01 DIET [NPO except Meds at Midnight] [DIET] 01/22/17 08:00 Orthopedics Consult [CONS] Routine 01/23/17 05:00 MAGNESIUM [CHEM] DAILYLAB Subjective - Subjective Patient Reports: Feeling Better, Resting Comfortably Nursing Reports: No Complaints, Confused (Her confusion is now minimal. She is imprinting new info such as conversation of yesterda facts she spontaneously recalls.) Objective Vital Signs: Vital Signs - 24 hr 01/21/17 01/21/17 01/21/17 15:45 16:15 16:30 Temperature 37 C 36.6 C Heart Rate 68 Heart Rate [ Brachial] Heart Rate [ 72 64 Monitoring electrodes] Respiratory 18 17 20 Rate Blood Pressure [Left Brachial artery] Blood Pressure 136/63 H 171/91 H [Right Radial artery] O2 Saturation 97 96 01/21/17 01/22/17 01/22/17 21:22 01:03 07:32 Temperature 36.9 C 36.5 C Heart Rate Heart Rate [ 62 68 Brachial] Heart Rate [ 74 Monitoring electrodes] Respiratory 18 20 Rate Blood Pressure 130/75 128/82 H [Left Brachial artery] Blood Pressure 153/96 H [Right Radial artery] O2 Saturation 94 94 Oxygen O2 Source CPAP I&O (Last 24 Hrs): Intake and Output Totals x24h 01/20/17 01/21/17 01/22/17 23:59 23:59 23:59 Intake Total 1768 1727 Output Total 3620 1425 350 Balance -6022 -738 -350 General: Alert, Oriented x3, Cooperative HEENT: PERRLA, EOMI Neck: No JVD, No thyromegaly Neuro: Alert, Speech Slurred Cardiovascular: Regular rate Respiratory: Chest non-tender, No respiratory distress, Breath sounds nml Abdomen: Normal bowel sounds, Soft Extremities: No clubbing, No cyanosis, No edema Skin: No rashes, No breakdown - Results Results: Laboratory Results WBC 8.9 x10^3/uL (4.8-10.8) 01/22/17 05:10 RBC 3.64 10^6/uL (4.20-5.40) L 01/22/17 05:10 Hgb 9.3 g/dL (12.0-16.0) L 01/22/17 05:10 Hct 29.6 % (37.0-47.0) L 01/22/17 05:10 MCV 81.3 fL (81.0-99.0) 01/22/17 05:10 MCH 25.6 pg (27.0-31.0) L 01/22/17 05:10 MCHC 31.5 g/dL (32.0-36.0) L 01/22/17 05:10 RDW 21.1 % (12.0-15.0) H 01/22/17 05:10 Plt Count 88 10^3/uL (130-450) L 01/22/17 05:10 MPV 10.0 fL (7.9-10.8) 01/22/17 05:10 Neut # 6.7 10^3/uL (1.5-6.6) H 01/22/17 05:10 Lymph # 1.0 10^3/uL (1.5-3.5) L 01/22/17 05:10 [place] # 0.6 10^3/uL (0.0-1.0) 01/22/17 05:10 Eos # 0.6 10^3/uL (0.0-0.7) 01/22/17 05:10 Baso # 0.1 10^3/uL (0.0-0.1) 01/22/17 05:10 Absolute Nucleated RBC 0.00 x10^3/uL 01/22/17 05:10 Nucleated RBCs 0.0 /100WBC 01/22/17 05:10 Manual Slide Review Indicated 01/22/17 05:10 Platelet Estimate DECREASED (<130,000) (NORMAL) 01/22/17 05:10 Platelet Morphology NORMAL APPEARANCE (NORMAL) 01/21/17 05:00 RBC Morph Micro Appear 1+ ANISOCYTOSIS (NORMAL) 1+ OVALOCYTES (NORMAL) 05:10 RBC Morph Micro Appear 1+ ANISOCYTOSIS (NORMAL) 1+ OVALOCYTES (NORMAL) 05:10 Sodium 145 mmol/L (135-145) 01/22/17 05:10 Potassium 3.9 mmol/L (3.5-5.0) 01/22/17 05:10 Chloride 109 mmol/L (101-111) 01/22/17 05:10 Carbon Dioxide 28 mmol/L (21-32) 01/22/17 05:10 Anion Gap 8.0 (6-13) 01/22/17 05:10 BUN 27 mg/dL (6-20) H 01/22/17 05:10 Creatinine 1.1 mg/dL (0.4-1.0) H 01/22/17 05:10 Estimated GFR (MDRD) 49 (>89) L 01/22/17 05:10 Glucose 98 mg/dL (70-100) 01/22/17 05:10 Calcium 8.2 mg/dL (8.5-10.3) L 01/22/17 05:10 Phosphorus 4.1 mg/dL (2.5-4.6) 01/22/17 05:10 Magnesium 2.0 mg/dL (1.7-2.8) 01/22/17 05:10 Total Bilirubin 0.8 mg/dL (0.2-1.0) 01/22/17 05:10 AST 56 IU/L (10-42) H 01/22/17 05:10 ALT 80 IU/L (10-60) H 01/22/17 05:10 Alkaline Phosphatase 43 IU/L (42-121) 01/22/17 05:10 Total Protein 4.9 g/dL (6.7-8.2) L 01/22/17 05:10 Albumin 2.7 g/dL (3.2-5.5) L 01/22/17 05:10 Globulin 2.2 g/dL (2.1-4.2) 01/22/17 05:10 Albumin/Globulin Ratio 1.2 (1.0-2.2) 01/22/17 05:10 Lipase 43 U/L (22-51) 01/20/17 02:45 Urine Color YELLOW 01/20/17 03:36 Urine Clarity CLEAR (CLEAR) 01/20/17 03:36 Urine pH 7.0 PH (5.0-7.5) 01/20/17 03:36 Ur Specific [place] 1.020 (1.002-1.030) 01/20/17 03:36 Urine Protein >=300 mg/dL (NEGATIVE) H 01/20/17 03:36 Urine Glucose (UA) NEGATIVE mg/dL (NEGATIVE) 01/20/17 03:36 Urine Ketones NEGATIVE mg/dL (NEGATIVE) 01/20/17 03:36 Urine Occult Blood MODERATE (NEGATIVE) H 01/20/17 03:36 Urine Nitrite NEGATIVE (NEGATIVE) 01/20/17 03:36 Urine Bilirubin NEGATIVE (NEGATIVE) 01/20/17 03:36 Urine Urobilinogen 0.2 (NORMAL) E.U./dL (NORMAL) 01/20/17 03:36 Ur Leukocyte Esterase NEGATIVE (NEGATIVE) 01/20/17 03:36 Urine RBC 0-5 /HPF (0-5) 01/20/17 03:36 Urine WBC 4-5 /HPF (0-5) 01/20/17 03:36 Ur Squamous Epith Cells RARE Squamous (<= Few) 01/20/17 03:36 Urine Bacteria None Seen /HPF (None Seen) 01/20/17 03:36 Ur Microscopic Review INDICATED 01/20/17 03:36 Urine Culture Comments NOT INDICATED 01/20/17 03:36
[2017-01-22] MEDS ORDERED: BUPIVACAINE 0.25%-EPI 1:200000 PF 30 ML VIAL SUBQ ONE (13:49)
--- NOTE | 2017-01-22 14:23 | OPERATIVE REPORT ---
DATE OF SURGERY: 01/22/2017 00:00:00 PREOPERATIVE DIAGNOSIS: Left patellar fracture. POSTOPERATIVE DIAGNOSIS: Left patellar fracture. NAME OF PROCEDURE: Multiple cannulated screw fixation of left patellar fracture using two 4.0 mm cannulated screws. SURGEON: Emery Lilly MD ANESTHESIA: Hafsa Villa MD DESCRIPTION OF PROCEDURE: The patient was taken to the operating room on the afternoon of the January, where she was placed under a general anesthetic in supine position without complications. Removed her long leg posterior splint and applied pneumatic tourniquet on the left leg. We did not utilize the tourniquet, however. We then prepped and draped the leg free in the usual fashion after placing a sand bag under her left hip to help with the external rotation of the leg. Fluoroscopic views showed again an essentially nondisplaced vertical patella fracture. We then proceeded to place 2 threaded guidewires across the patella transversely across the fracture. Fluoroscopic views in AP and lateral projection showed interosseous location of our guide pins. Satisfied with their position, the direct measuring guide was utilized and we determined the proper length of our cannulated screws. The cannulated drill was then used to perforate the patella cortex. Finally, we then inserted the selected short threaded 4.0 mm cannulated screws over our guide pins. We got good compression of the fracture with good purchase of the threaded portion of our screws in each case. We then removed the guide pins. We then obtained permanent views of our patella AP and lateral projections. Satisfied with this, we then irrigated the wounds with 0.25% Marcaine with epinephrine, 10 mL, of irrigation and local anesthesia in our wounds. We then approximated the skin edges with quarter-inch Steri-Strips. We then dressed the knee with some 4 x 4's , Todd wrap and knee placed in knee immobilizer. TOURNIQUET TIME: None. ESTIMATED BLOOD LOSS: Less than 50 mL. REPLACEMENT: 500 mL crystalloid. INTRAOPERATIVE COMPLICATIONS: None. PLAN: The patient may be weightbearing as tolerated in a knee immobilizer. Her mobilization will be somewhat restricted due to her recent stroke. In approximately 2 weeks' time, the therapist at her rehab center can begin working on some gentle range of motion of the knee out of her knee splint. JOB #: [id number] EXT JOB #:[id number] [email or web address]
[2017-01-22] MEDS: SODIUM CHLORIDE 0.9% 1,000 ML IV SCH (15:04)
--- NOTE | 2017-01-22 15:33 | XRAY Report ---
LEFT KNEE TAKEN IN SURGERY: 01/22/2017 CLINICAL HISTORY: Patient has a left patellar fracture. FINDINGS: Three views were taken in surgery, AP and lateral. Initial AP views demonstrate surgical pin in place bridging the patellar fracture. The final two views of the study are AP and lateral. These views demonstrate two surgical screws jd dging the patellar fracture and maintaining anatomic position and alignment. IMPRESSION: INTERNAL FIXATION OF PREVIOUSLY NOTED LEFT PATELLAR FRACTURE. FINAL IMAGES DEMONSTRATE THE FRACTURE IN ANATOMICAL POSITION AND ALIGNMENT. JOB #: [id number] EXT JOB #:[id number]
--- NOTE | 2017-01-22 15:36 | XRAY Report ---
FLUOROSCOPY TIME FOR INTERNAL FIXATION OF PATELLAR FRACTURE: 01/22/2017 Fluoroscopy time of 0.15 minutes. JOB #: [id number] EXT JOB #:[id number]
[2017-01-22] MEDS: ceFAZolin 2 GM/50 ML 50 ML IV SCH (22:10)
[2017-01-22] MEDS: ATORVASTATIN 10 MG TABLET PO SCH (22:11)
[2017-01-22] MEDS: oxyCOD/ACETAMIN 5 MG/325 MG TABLET PO PRN (22:13)
[2017-01-23] MEDS: oxyCOD/ACETAMIN 5 MG/325 MG TABLET PO PRN (01:30)
[2017-01-23] MEDS: SODIUM CHLORIDE 0.9% 1,000 ML IV SCH ×2 (03:56→16:24)
[2017-01-23] MEDS: ceFAZolin 2 GM/50 ML 50 ML IV SCH (05:31)
[2017-01-23] MEDS: SODIUM CHLORIDE FLUSH 0.9% 10 ML SYRINGE IVP SCH ×6 (06:08→20:40)
[2017-01-23] MEDS: CETIRIZINE 10 MG TABLET PO SCH (06:21)
[2017-01-23] MEDS: METOPROLOL SUCCINATE 50 MG TABLET PO SCH (08:50)
[2017-01-23] MEDS: ASPIRIN EC 325 MG TABLET PO SCH (08:50)
[2017-01-23] MEDS: ALLOPURINOL 100 MG TABLET PO SCH (08:50)
[2017-01-23] MEDS: hydrALAZINE 25 MG TABLET PO SCH ×4 (08:51→20:38)
[2017-01-23] MEDS: amLODIPine 5 MG TABLET PO SCH (08:51)
[2017-01-23] MEDS: INSULIN ASPART 300 UNIT/3 ML PEN SUBQ SCH ×4 (08:51→20:47)
[2017-01-23] MEDS: PANTOPRAZOLE 40 MG VIAL IVP SCH (08:51)
[2017-01-23] MEDS: levETIRAcetam INJ 1,000 MG in SODIUM CHLORIDE 0.9% 100ML 100 ML IV SCH (08:51)
[2017-01-23] MEDS: VENLAFAXINE ER 37.5 MG CAPSULE PO SCH (09:53)
[2017-01-23] MEDS: FUROSEMIDE INJ 100mg VIAL 80 MG in SODIUM CHLORIDE 0.9% 50 ML IVP SCH (09:53)
[2017-01-23] MEDS: ENOXAPARIN 40 MG/0.4 ML SYRINGE SUBQ SCH (09:58)
[2017-01-23] MEDS: NYSTATIN CREAM 15 GM TUBE TOP SCH ×2 (09:59→20:40)
--- NOTE | 2017-01-23 10:16 | PROVIDER PROGRESS NOTE ---
Assessment/Plan - Problem List (1) Seizures, generalized convulsive Assessment/Plan: No further seizures She is doing well on the Keppra. (2) Acute CVA (cerebrovascular accident) Assessment/Plan: She needs further rehab. She will be seen today. She should be able to go to SNF tomorrow - Current Meds Current Meds: Current Medications Generic Name Dose Route Start Last Admin Trade Name Freq PRN Reason Stop Dose Admin Acetaminophen 650 mg 01/20/17 03:49 01/21/17 08:53 Tylenol PO 650 mg Q4HR PRN Administration Pain 1 to 4 Albuterol 2.5 mg 01/20/17 03:49 01/21/17 15:43 INH 2.5 mg Q4HR PRN Administration Wheezing Allopurinol 300 mg 01/20/17 09:00 01/23/17 08:50 Zyloprim PO 300 mg DAILY GABINO Administration Amlodipine Besylate 5 mg 01/20/17 09:00 01/23/17 08:51 Norvasc PO 5 mg DAILY GABINO Administration Aspirin 325 mg 01/21/17 09:00 01/23/17 08:50 Ecotrin PO 325 mg DAILY GABINO Administration Atorvastatin Calcium 20 mg 01/20/17 21:00 01/22/17 22:11 Lipitor PO 20 mg QPM GABINO Administration Cetirizine HCl 10 mg 01/20/17 07:00 01/23/17 06:21 Zyrtec PO 10 mg QDAC GABINO Administration Clonidine HCl 0.3 patch 01/20/17 10:00 01/20/17 09:39 Xgeqeiru-Stv-4 TOP 0.3 patch Q7D GABINO Administration Enoxaparin Sodium 40 mg 01/23/17 09:00 01/23/17 09:58 Lovenox SUBQ Not Given DAILY GABINO Gabapentin 300 mg 01/20/17 14:00 01/22/17 13:29 Neurontin PO Not Given 1400 GABINO Gabapentin 600 mg 01/20/17 21:00 01/22/17 22:11 Neurontin PO 600 mg QPM GABINO Administration Hydralazine HCl 25 mg 01/21/17 09:00 01/23/17 08:51 Apresoline PO 25 mg QID GABINO Administration Levetiracetam 1,000 mg/ Sodium 110 mls @ 400 mls/hr 01/20/17 21:00 01/23/17 08: 51 Chloride IV 400 mls/hr BID GABINO Administration Sodium Chloride 1,000 mls @ 100 mls/hr 01/22/17 14:00 01/23/17 03:56 Normal Saline 0.9% IV 100 mls/hr .Q10H GABINO Administration Furosemide 80 mg/ Sodium 58 mls @ 240 mls/hr 01/23/17 09:30 01/23/17 09:53 Chloride IVP 240 mls/hr DAILY GABINO Administration Insulin Aspart 1 - 5 unit 01/21/17 12:00 01/23/17 08:51 Novolog SUBQ Not Given 0800,1200,1700,2100 [facility] Protocol Lorazepam 1 mg 01/20/17 03:00 01/20/17 03:00 Ativan Inj IVP 1 mg Q2HR PRN Administration Anxiety Metoprolol Succinate 100 mg 01/21/17 09:00 01/23/17 08:50 Toprol Xl PO 100 mg DAILY GABINO Administration Nystatin 1 applic 01/21/17 11:00 01/23/17 09:59 Mycostatin Cream TOP 1 applic BID GABINO Administration Oxycodone/Acetaminophen 1 tab 01/22/17 13:37 01/23/17 01:30 Percocet 5 Mg/325 Mg PO 1 tab Q4HR PRN Administration PAIN Pantoprazole Sodium 40 mg 01/20/17 09:00 01/23/17 08:51 Protonix IVP 40 mg DAILY GABINO Administration Sodium Chloride 10 ml 01/20/17 03:49 01/22/17 09:36 Normal Saline Flush 0.9% IVP 20 ml PRN PRN Administration NEEDED PER PROVIDER ORDERS Sodium Chloride 10 ml 01/20/17 06:00 01/23/17 06:08 Normal Saline Flush 0.9% IVP Not Given Q8HR GABINO Sodium Chloride 10 ml 01/22/17 14:00 01/23/17 06:08 Normal Saline Flush 0.9% IVP Not Given Q8HR GABINO Venlafaxine HCl 37.5 mg 01/20/17 09:00 01/23/17 09:53 Effexor Er PO 37.5 mg DAILY GABINO Administration - Lab Result Fish Bone Diagrams: 01/22/17 05:10 01/22/17 05:10 - Additional Planning My Orders: My Active Orders 01/24/17 05:00 CBC - COMP BLD CT W/AUTO DIFF [HEME] DAILYLAB COMPREHENSIVE METABOLIC PANEL [CHEM] DAILYLAB 01/25/17 05:00 CBC - COMP BLD CT W/AUTO DIFF [HEME] DAILYLAB COMPREHENSIVE METABOLIC PANEL [CHEM] DAILYLAB 01/26/17 05:00 CBC - COMP BLD CT W/AUTO DIFF [HEME] DAILYLAB COMPREHENSIVE METABOLIC PANEL [CHEM] DAILYLAB Subjective - Subjective Patient Reports: Feeling Better, Resting Comfortably, No Complaints Nursing Reports: No Complaints, Pain Objective Vital Signs: Vital Signs - 24 hr 01/22/17 01/22/17 01/22/17 13:44 13:50 13:55 Temperature Heart Rate [ Brachial] Respiratory Rate Blood Pressure [Left Brachial artery] O2 Saturation 100 99 99 01/22/17 01/22/17 01/22/17 13:59 14:08 14:14 Temperature 36.3 C L Heart Rate [ 70 Brachial] Respiratory 20 Rate Blood Pressure 115/71 [Left Brachial artery] O2 Saturation 99 92 93 01/22/17 01/22/17 01/22/17 14:35 15:08 16:08 Temperature 36.8 C 37 C 36.0 C L Heart Rate [ 69 67 64 Brachial] Respiratory 20 20 16 Rate Blood Pressure 106/67 124/78 107/70 [Left Brachial artery] O2 Saturation 89 L 94 95 01/22/17 01/23/17 01/23/17 20:08 00:00 05:55 Temperature 37.2 C 37.1 C 36.3 C L Heart Rate [ 71 70 65 Brachial] Respiratory 20 22 18 Rate Blood Pressure 113/70 145/84 H 156/80 H [Left Brachial artery] O2 Saturation 99 98 96 01/23/17 08:43 Temperature 37.1 C Heart Rate [ 69 Brachial] Respiratory 18 Rate Blood Pressure 146/72 H [Left Brachial artery] O2 Saturation 96 Oxygen O2 Source Nasal cannula I&O (Last 24 Hrs): Intake and Output Totals x24h 01/21/17 01/22/17 01/23/17 23:59 23:59 23:59 Intake Total 1727 1509 445 Output Total 2465 675 200 Balance -738 834 245 General: Alert, Oriented x3, Cooperative HEENT: PERRLA, EOMI Neck: Supple, No thyromegaly Neuro: Alert, Oriented Times 3 Cardiovascular: Regular rate, No murmurs Respiratory: No respiratory distress, Breath sounds nml Abdomen: Soft, No tenderness Extremities: No cyanosis, No edema Skin: No rashes, No breakdown - Results Results: Laboratory Results WBC 8.9 x10^3/uL (4.8-10.8) 01/22/17 05:10 RBC 3.64 10^6/uL (4.20-5.40) L 01/22/17 05:10 Hgb 9.3 g/dL (12.0-16.0) L 01/22/17 05:10 Hct 29.6 % (37.0-47.0) L 01/22/17 05:10 MCV 81.3 fL (81.0-99.0) 01/22/17 05:10 MCH 25.6 pg (27.0-31.0) L 01/22/17 05:10 MCHC 31.5 g/dL (32.0-36.0) L 01/22/17 05:10 RDW 21.1 % (12.0-15.0) H 01/22/17 05:10 Plt Count 88 10^3/uL (130-450) L 01/22/17 05:10 MPV 10.0 fL (7.9-10.8) 01/22/17 05:10 Neut # 6.7 10^3/uL (1.5-6.6) H 01/22/17 05:10 Lymph # 1.0 10^3/uL (1.5-3.5) L 01/22/17 05:10 [place] # 0.6 10^3/uL (0.0-1.0) 01/22/17 05:10 Eos # 0.6 10^3/uL (0.0-0.7) 01/22/17 05:10 Baso # 0.1 10^3/uL (0.0-0.1) 01/22/17 05:10 Absolute Nucleated RBC 0.00 x10^3/uL 01/22/17 05:10 Nucleated RBCs 0.0 /100WBC 01/22/17 05:10 Manual Slide Review Indicated 01/22/17 05:10 Platelet Estimate DECREASED (<130,000) (NORMAL) 01/22/17 05:10 Platelet Morphology NORMAL APPEARANCE (NORMAL) 01/21/17 05:00 RBC Morph Micro Appear 1+ ANISOCYTOSIS (NORMAL) 1+ OVALOCYTES (NORMAL) 05:10 RBC Morph Micro Appear 1+ ANISOCYTOSIS (NORMAL) 1+ OVALOCYTES (NORMAL) 05:10 Sodium 145 mmol/L (135-145) 01/22/17 05:10 Potassium 3.9 mmol/L (3.5-5.0) 01/22/17 05:10 Chloride 109 mmol/L (101-111) 01/22/17 05:10 Carbon Dioxide 28 mmol/L (21-32) 01/22/17 05:10 Anion Gap 8.0 (6-13) 01/22/17 05:10 BUN 27 mg/dL (6-20) H 01/22/17 05:10 Creatinine 1.1 mg/dL (0.4-1.0) H 01/22/17 05:10 Estimated GFR (MDRD) 49 (>89) L 01/22/17 05:10 Glucose 98 mg/dL (70-100) 01/22/17 05:10 POC Whole Bld Glucose 87 mg/dL (70 - 100) 01/23/17 07:50 Calcium 8.2 mg/dL (8.5-10.3) L 01/22/17 05:10 Phosphorus 4.1 mg/dL (2.5-4.6) 01/22/17 05:10 Magnesium 1.9 mg/dL (1.7-2.8) 01/23/17 02:58 Total Bilirubin 0.8 mg/dL (0.2-1.0) 01/22/17 05:10 AST 56 IU/L (10-42) H 01/22/17 05:10 ALT 80 IU/L (10-60) H 01/22/17 05:10 Alkaline Phosphatase 43 IU/L (42-121) 01/22/17 05:10 Total Protein 4.9 g/dL (6.7-8.2) L 01/22/17 05:10 Albumin 2.7 g/dL (3.2-5.5) L 01/22/17 05:10 Globulin 2.2 g/dL (2.1-4.2) 01/22/17 05:10 Albumin/Globulin Ratio 1.2 (1.0-2.2) 01/22/17 05:10 Lipase 43 U/L (22-51) 01/20/17 02:45 Urine Color YELLOW 01/20/17 03:36 Urine Clarity CLEAR (CLEAR) 01/20/17 03:36 Urine pH 7.0 PH (5.0-7.5) 01/20/17 03:36 Ur Specific [place] 1.020 (1.002-1.030) 01/20/17 03:36 Urine Protein >=300 mg/dL (NEGATIVE) H 01/20/17 03:36 Urine Glucose (UA) NEGATIVE mg/dL (NEGATIVE) 01/20/17 03:36 Urine Ketones NEGATIVE mg/dL (NEGATIVE) 01/20/17 03:36 Urine Occult Blood MODERATE (NEGATIVE) H 01/20/17 03:36 Urine Nitrite NEGATIVE (NEGATIVE) 01/20/17 03:36 Urine Bilirubin NEGATIVE (NEGATIVE) 01/20/17 03:36 Urine Urobilinogen 0.2 (NORMAL) E.U./dL (NORMAL) 01/20/17 03:36 Ur Leukocyte Esterase NEGATIVE (NEGATIVE) 01/20/17 03:36 Urine RBC 0-5 /HPF (0-5) 01/20/17 03:36 Urine WBC 4-5 /HPF (0-5) 01/20/17 03:36 Ur Squamous Epith Cells RARE Squamous (<= Few) 01/20/17 03:36 Urine Bacteria None Seen /HPF (None Seen) 01/20/17 03:36 Ur Microscopic Review INDICATED 01/20/17 03:36 Urine Culture Comments NOT INDICATED 01/20/17 03:36
--- NOTE | 2017-01-23 12:03 | PROVIDER PROGRESS NOTE ---
Subjective - Prog Note Date Prog Note Date: 01/23/17 Prog Note Time: 11:59 - Subjective Pt reports feeling: Improved (Mild post op knee pain. Only requiring one oral pain med) Objective - Vital Signs/Intake & Output Vital Signs: Vital Signs x48h Temp Pulse Resp BP Pulse Ox 01/23/17 08:43 37.1 C 69 18 146/72 H 96 01/23/17 05:55 36.3 C L 65 18 156/80 H 96 Intake & Output: Intake & Output 01/20/17 01/21/17 01/22/17 01/23/17 23:59 23:59 23:59 23:59 Intake Total 1768 1727 1509 445 Output Total 3620 5625 675 200 Balance -1852 -738 834 245 - Lab Results Fish Bones: 01/22/17 05:10 01/22/17 05:10 Other Labs: Lab Results x24hrs 01/23/17 01/23/17 01/23/17 Range/Units 11:02 07:50 02:58 POC Whole Bld Glucose 134 H 87 (70 - 100) mg/dL Magnesium 1.9 (1.7-2.8) mg/dL 01/22/17 01/22/17 01/22/17 Range/Units 16:36 11:17 07:23 POC Whole Bld Glucose 98 93 98 (70 - 100) mg/dL Magnesium (1.7-2.8) mg/dL 01/21/17 01/21/17 01/21/17 Range/Units 12:42 08:02 06:25 POC Whole Bld Glucose 100 85 97 (70 - 100) mg/dL Magnesium (1.7-2.8) mg/dL 01/21/17 01/20/17 01/20/17 Range/Units 00:03 17:04 12:29 POC Whole Bld Glucose 89 96 103 H (70 - 100) mg/dL Magnesium (1.7-2.8) mg/dL - Other Results/Comments Other Results/Comments: EXAM: Left knee in knee immobilizer. Moves toes well. Sensation intact. Good cap filling Assessment/Plan - Problem List (1) Patellar fracture Impression: Satis postop PLAN: Keep in immobilizer x 2 weeks. MAY be immobilized in PT: walker ambulate - WBAT on left in immobilizer. When transferred to SNF, will follow up in orthopedic clinic in about 2 weeks for wound check and repeat XR, prior to gentle OOB knee PROM with knee flexion 0-60 degrees. Qualifiers: Encounter type: subsequent encounter Fracture type: closed Fracture morphology: longitudinal Fracture alignment: nondisplaced Laterality: left
[2017-01-23] MEDS: GABAPENTIN 300 MG CAPSULE PO SCH ×2 (13:04→20:39)
[2017-01-23] MEDS ORDERED: ZINC OXIDE 20% OINT 28.35 GM TUBE TOP PRN (16:27)
[2017-01-23] MEDS: ACETAMINOPHEN 325 MG TABLET PO PRN ×2 (16:50→20:39)
[2017-01-23] MEDS: levETIRAcetam 250 MG TABLET PO SCH (20:38)
[2017-01-23] MEDS: ATORVASTATIN 10 MG TABLET PO SCH (20:39)
[2017-01-23 22:00] LABS: BILIRUBIN,URINE NEGATIVE (NEGATIVE); PH,URINE 5.5 PH (5.0-7.5)
[2017-01-23 22:13] LABS: UA w/ MICROSCOPIC CHARGE YES; UR CULTURE IF IND NOT INDICATED
[2017-01-24] MEDS: SODIUM CHLORIDE FLUSH 0.9% 10 ML SYRINGE IVP SCH ×2 (05:58→06:03)
[2017-01-24 06:01] LABS: BASOPHILS # (AUTO) 0.1 10^3/uL (0.0-0.1); EOSINOPHILS # (AUTO) 0.5 10^3/uL (0.0-0.7); EOSINOPHILS % (AUTO) 6.6 %; HCT - HEMATOCRIT 29.1 % (37.0-47.0); HGB - HEMOGLOBIN 9.2 g/dL (12.0-16.0); LYMPHOCYTES # (AUTO) 1.1 10^3/uL (1.5-3.5); LYMPHOCYTES % (AUTO) 14.6 %; MEAN CORPUSCULAR HEMOGLOBIN 25.7 pg (27.0-31.0); MEAN CORPUSCULAR HGB CONC 31.5 g/dL (32.0-36.0); MEAN CORPUSCULAR VOLUME 81.4 fL (81.0-99.0); MEAN PLATELET VOLUME 9.9 fL (7.9-10.8); MONOCYTES # (AUTO) 0.7 10^3/uL (0.0-1.0); MONOCYTES % (AUTO) 8.8 %; NEUTROPHILS # (AUTO) 5.4 10^3/uL (1.5-6.6); RED BLOOD COUNT 3.58 10^6/uL (4.20-5.40); RED CELL DISTRIBUTION WIDTH 21.1 % (12.0-15.0); UNCORRECTED WHITE BLOOD COUNT 7.8 x10^3/uL; WHITE BLOOD COUNT 7.8 x10^3/uL (4.8-10.8)
[2017-01-24] MEDS: CETIRIZINE 10 MG TABLET PO SCH (06:03)
[2017-01-24 06:09] LABS: ALBUMIN/GLOBULIN RATIO 1.1 (1.0-2.2); BILIRUBIN,TOTAL 0.5 mg/dL (0.2-1.0); CALCIUM 8.1 mg/dL (8.5-10.3); CREATININE 1.2 mg/dL (0.4-1.0); POTASSIUM 3.6 mmol/L (3.5-5.0)
[2017-01-24 06:39] LABS: PLATELET ESTIMATE, MANUAL DECREASED (<130,000) (NORMAL)
[2017-01-24 07:26] VITALS: BP 164/81
[2017-01-24] MEDS: INSULIN ASPART 300 UNIT/3 ML PEN SUBQ SCH (08:31)
[2017-01-24] MEDS: ENOXAPARIN 40 MG/0.4 ML SYRINGE SUBQ SCH (09:01)
[2017-01-24] MEDS: ASPIRIN EC 325 MG TABLET PO SCH (09:01)
[2017-01-24] MEDS: amLODIPine 5 MG TABLET PO SCH (09:01)
[2017-01-24] MEDS: ALLOPURINOL 100 MG TABLET PO SCH (09:01)
[2017-01-24] MEDS: hydrALAZINE 25 MG TABLET PO SCH (09:03)
[2017-01-24] MEDS: FUROSEMIDE INJ 100mg VIAL 80 MG in SODIUM CHLORIDE 0.9% 50 ML IVP SCH (09:03)
[2017-01-24] MEDS: METOPROLOL SUCCINATE 50 MG TABLET PO SCH (09:03)
[2017-01-24] MEDS: levETIRAcetam 250 MG TABLET PO SCH (09:03)
[2017-01-24] MEDS: NYSTATIN CREAM 15 GM TUBE TOP SCH (09:04)
[2017-01-24] MEDS: PANTOPRAZOLE 40 MG VIAL IVP SCH (09:04)
[2017-01-24] MEDS: VENLAFAXINE ER 37.5 MG CAPSULE PO SCH (09:05)
--- NOTE | 2017-01-24 10:11 | PROVIDER PROGRESS NOTE ---
Subjective - Prog Note Date Prog Note Date: 01/24/17 Prog Note Time: 10:06 - Subjective Pt reports feeling: Improved (Less pain in knee. No fever overnioght) Objective - Vital Signs/Intake & Output Vital Signs: Vital Signs x48h Temp Pulse Resp BP Pulse Ox 01/24/17 07:25 36.7 C 65 18 164/81 H 92 Intake & Output: Intake & Output 01/21/17 01/22/17 01/23/17 01/24/17 23:59 23:59 23:59 23:59 Intake Total 1727 1509 1645 100 Output Total 2465 675 1800 400 Balance -738 834 -155 -300 - Lab Results Fish Bones: 01/24/17 05:05 01/24/17 05:05 Other Labs: Lab Results x24hrs 01/24/17 01/24/17 01/24/17 Range/Units 07:12 05:05 05:05 WBC 7.8 (4.8-10.8) x10^3/uL RBC 3.58 L (4.20-5.40) 10^6/uL Hgb 9.2 L (12.0-16.0) g/dL Hct 29.1 L (37.0-47.0) % MCV 81.4 (81.0-99.0) fL MCH 25.7 L (27.0-31.0) pg MCHC 31.5 L (32.0-36.0) g/dL RDW 21.1 H (12.0-15.0) % Plt Count 93 L (130-450) 10^3/uL MPV 9.9 (7.9-10.8) fL Neut # 5.4 (1.5-6.6) 10^3/uL Lymph # 1.1 L (1.5-3.5) 10^3/uL [place] # 0.7 (0.0-1.0) 10^3/uL Eos # 0.5 (0.0-0.7) 10^3/uL Baso # 0.1 (0.0-0.1) 10^3/uL Absolute Nucleated RBC 0.00 x10^3/uL Nucleated RBCs 0.0 /100WBC Manual Slide Review Indicated Platelet Estimate DECREASED (<130,000) (NORMAL) RBC Morph Micro Appear 1+ OVALOCYTES (NORMAL) Sodium 142 (135-145) mmol/L Potassium 3.6 (3.5-5.0) mmol/L Chloride 108 (101-111) mmol/L Carbon Dioxide 27 (21-32) mmol/L Anion Gap 7.0 (6-13) BUN 26 H (6-20) mg/dL Creatinine 1.2 H (0.4-1.0) mg/dL Estimated GFR (MDRD) 44 L (>89) Glucose 101 H (70-100) mg/dL POC Whole Bld Glucose 96 (70 - 100) mg/dL Calcium 8.1 L (8.5-10.3) mg/dL Total Bilirubin 0.5 (0.2-1.0) mg/dL AST 20 (10-42) IU/L ALT 24 (10-60) IU/L Alkaline Phosphatase 42 (42-121) IU/L Total Protein 5.0 L (6.7-8.2) g/dL Albumin 2.6 L (3.2-5.5) g/dL Globulin 2.4 (2.1-4.2) g/dL Albumin/Globulin Ratio 1.1 (1.0-2.2) Urine Color Urine Clarity (CLEAR) Urine pH (5.0-7.5) PH Ur Specific Paradise (1.002-1.030) Urine Protein (NEGATIVE) mg/dL Urine Glucose (UA) (NEGATIVE) mg/dL Urine Ketones (NEGATIVE) mg/dL Urine Occult Blood (NEGATIVE) Urine Nitrite (NEGATIVE) Urine Bilirubin (NEGATIVE) Urine Urobilinogen (NORMAL) E.U./dL Ur Leukocyte Esterase (NEGATIVE) Urine RBC (0-5) /HPF Urine WBC (0-5) /HPF Ur Epithelial Cells (<= Few) /HPF Ur Squamous Epith Cells (<= Few) Urine Bacteria (None Seen) /HPF Ur Microscopic Review Urine Culture Comments 01/23/17 01/23/17 01/23/17 Range/Units 21:52 20:18 16:41 WBC (4.8-10.8) x10^3/uL RBC (4.20-5.40) 10^6/uL Hgb (12.0-16.0) g/dL Hct (37.0-47.0) % MCV (81.0-99.0) fL MCH (27.0-31.0) pg MCHC (32.0-36.0) g/dL RDW (12.0-15.0) % Plt Count (130-450) 10^3/uL MPV (7.9-10.8) fL Neut # (1.5-6.6) 10^3/uL Lymph # (1.5-3.5) 10^3/uL [place] # (0.0-1.0) 10^3/uL Eos # (0.0-0.7) 10^3/uL Baso # (0.0-0.1) 10^3/uL Absolute Nucleated RBC x10^3/uL Nucleated RBCs /100WBC Manual Slide Review Platelet Estimate (NORMAL) RBC Morph Micro Appear (NORMAL) Sodium (135-145) mmol/L Potassium (3.5-5.0) mmol/L Chloride (101-111) mmol/L Carbon Dioxide (21-32) mmol/L Anion Gap (6-13) BUN (6-20) mg/dL Creatinine (0.4-1.0) mg/dL Estimated GFR (MDRD) (>89) Glucose (70-100) mg/dL POC Whole Bld Glucose 119 H 134 H (70 - 100) mg/dL Calcium (8.5-10.3) mg/dL Total Bilirubin (0.2-1.0) mg/dL AST (10-42) IU/L ALT (10-60) IU/L Alkaline Phosphatase (42-121) IU/L Total Protein (6.7-8.2) g/dL Albumin (3.2-5.5) g/dL Globulin (2.1-4.2) g/dL Albumin/Globulin Ratio (1.0-2.2) Urine Color YELLOW Urine Clarity CLEAR (CLEAR) Urine pH 5.5 (5.0-7.5) PH Ur Specific [place] 1.010 (1.002-1.030) Urine Protein 100 H (NEGATIVE) mg/dL Urine Glucose (UA) NEGATIVE (NEGATIVE) mg/dL Urine Ketones NEGATIVE (NEGATIVE) mg/dL Urine Occult Blood TRACE-LYSE (NEGATIVE) Urine Nitrite NEGATIVE (NEGATIVE) Urine Bilirubin NEGATIVE (NEGATIVE) Urine Urobilinogen 0.2 (NORMAL) (NORMAL) E.U./dL Ur Leukocyte Esterase NEGATIVE (NEGATIVE) Urine RBC 0-5 (0-5) /HPF Urine WBC 4-5 (0-5) /HPF Ur Epithelial Cells RARE Renal Tubular (<= Few) /HPF Ur Squamous Epith Cells RARE Squamous (<= Few) Urine Bacteria None Seen (None Seen) /HPF Ur Microscopic Review INDICATED Urine Culture Comments NOT INDICATED 01/23/17 Range/Units 11:02 WBC (4.8-10.8) x10^3/uL RBC (4.20-5.40) 10^6/uL Hgb (12.0-16.0) g/dL Hct (37.0-47.0) % MCV (81.0-99.0) fL MCH (27.0-31.0) pg MCHC (32.0-36.0) g/dL RDW (12.0-15.0) % Plt Count (130-450) 10^3/uL MPV (7.9-10.8) fL Neut # (1.5-6.6) 10^3/uL Lymph # (1.5-3.5) 10^3/uL [place] # (0.0-1.0) 10^3/uL Eos # (0.0-0.7) 10^3/uL Baso # (0.0-0.1) 10^3/uL Absolute Nucleated RBC x10^3/uL Nucleated RBCs /100WBC Manual Slide Review Platelet Estimate (NORMAL) RBC Morph Micro Appear (NORMAL) Sodium (135-145) mmol/L Potassium (3.5-5.0) mmol/L Chloride (101-111) mmol/L Carbon Dioxide (21-32) mmol/L Anion Gap (6-13) BUN (6-20) mg/dL Creatinine (0.4-1.0) mg/dL Estimated GFR (MDRD) (>89) Glucose (70-100) mg/dL POC Whole Bld Glucose 134 H (70 - 100) mg/dL Calcium (8.5-10.3) mg/dL Total Bilirubin (0.2-1.0) mg/dL AST (10-42) IU/L ALT (10-60) IU/L Alkaline Phosphatase (42-121) IU/L Total Protein (6.7-8.2) g/dL Albumin (3.2-5.5) g/dL Globulin (2.1-4.2) g/dL Albumin/Globulin Ratio (1.0-2.2) Urine Color Urine Clarity (CLEAR) Urine pH (5.0-7.5) PH Ur Specific [place] (1.002-1.030) Urine Protein (NEGATIVE) mg/dL Urine Glucose (UA) (NEGATIVE) mg/dL Urine Ketones (NEGATIVE) mg/dL Urine Occult Blood (NEGATIVE) Urine Nitrite (NEGATIVE) Urine Bilirubin (NEGATIVE) Urine Urobilinogen (NORMAL) E.U./dL Ur Leukocyte Esterase (NEGATIVE) Urine RBC (0-5) /HPF Urine WBC (0-5) /HPF Ur Epithelial Cells (<= Few) /HPF Ur Squamous Epith Cells (<= Few) Urine Bacteria (None Seen) /HPF Ur Microscopic Review Urine Culture Comments - Other Results/Comments Other Results/Comments: EXAN: Immobilizer in place. Moves toes well. Sensation ok. Getting up on floor with PT. Assessment/Plan - Problem List (1) Patellar fracture Impression: Satis post op PLAN: Mobilize as tolerated. When she goes to SNF, continue to mobilize as tolerated with knee immobilizer on x 2 weeks; walker ambulate - WBAT on left with post stroke precautions (weaker right side). Dressing changes as needed for anterior knee wound. Follow up in orthopedic clinic in 2-3 weeks to check wound and reXR. Will likely be able to begin OOB AAROM of left knee at that time. Qualifiers: Encounter type: subsequent encounter Fracture type: closed Fracture morphology: longitudinal Fracture alignment: nondisplaced Laterality: left
[2017-01-24] MEDS: oxyCOD/ACETAMIN 5 MG/325 MG TABLET PO PRN (10:23)
--- NOTE | 2017-01-26 19:05 | DISCHARGE SUMMARY ---
DATE OF ADMISSION: 01/20/2017 DATE OF DISCHARGE: 01/24/2017 PRIMARY CARE PHYSICIAN: Manuel Jin MD ADMISSION DIAGNOSES 1. New occipital and temporal lobe strokes. 2. New onset seizures. 3. Recent heart block, status post pacemaker. 4. Type 2 diabetes. 5. Leukocytosis. 6. Left patellar fracture, acute. 7. Obstructive sleep apnea. Continue home CPAP. 8. History of depression. 9. Gastroesophageal reflux disease. DISCHARGE DIAGNOSES 1. Subacute occipital and temporal lobe strokes, left hemisphere. 2. New onset seizures on Keppra after loading with same. 3. Recent heart blocks, status post pacemaker in the last week. 4. Diabetes, with excellent control. Hemoglobin A1c 6.0. 5. Leukocytosis, resolved. 6. Patellar fracture, status post screws for fixation. 7. Sleep apnea on CPAP. 8. Depression, on home medication. 9. Electrolyte disturbance, resolved. 10. Gastroesophageal reflux disease, on proton pump inhibitor without exacerbation. SPECIAL PROCEDURES: The patient had a head CT. Impression was there is now symmetric hypodensity involving occipital lobe, posterior temporal lobes, and medial parietal lobes. Differential includes posterior reversible encephalopathy syndrome. Infarcts could have similar appearance. CONSULTATIONS: Dr. Lilly, Orthopedics, who did the fixation of the patella with the screws. HOSPITAL COURSE AND MANAGEMENT: The initial presentation, emergency department evaluation, and hospital plan are well described in the history and physical; see copy of same. SUMMARY: The patient is a 71-year-old female who had recently had strokes and was sent to [facility] for rehabilitation. She had initially had a fainting episode and heart block. She had a pacemaker placed and then treated for pneumonia for 7 days and then she had a permanent pacemaker placed. She went home 2 days ago. When she was getting out of the car, she fell and fractured her left patella and then came to the emergency department. The patient was sent from the ER to [facility]. She awoke, and she was very confused this morning, did not recognize people, did not speak articulately. She had further tests in the emergency department. She had a spinal fluid sample obtained for culture. The patient had a seizure in the emergency department and was admitted for further monitoring and diagnostics. The patient was placed on Keppra. She had no further seizures throughout her stay. The patient was obtunded for the next 3 days and then slowly improved and was improved to the point where she left the ICU and was transitioned to the medical /surgical floor. She was neurologically improved to the point where she was carrying on conversations normally, and her daughter noted that she had her mother back, for which she was ecstatic. The patient had the x-rays of the patellar reviewed by Orthopedics in consult and then had the patella secured so that she could have better rehab, having paresis of the right leg and the left leg had the patellar fracture. The patient was able 2 days after surgery to have rehab and be able to go to a [place] [facility] facility. PHYSICAL EXAMINATION VITAL SIGNS: On the day of discharge, the patient's vital signs: 36.7; 65; 164/ 81; 18; 92 room air saturation. GENERAL: The patient is an obese female, stated age. EYES: EOM within normal limits, PERRL, nonicteric. MOUTH AND THROAT: Moist mucous membranes. No other pathology, mouth or pharynx. NECK: No lymphadenopathy, no thyromegaly, no bruits, JVD. CHEST WALL: Nontender. Symmetric. No breast exam done. HEART: Regular rhythm, paced. She has a 2/6 murmur, left sternal border. LUNGS: Clear. Good air movement. ABDOMEN: Very thick abdominal wall. Nontender. No hepatosplenomegaly appreciated. RECTAL/GENITAL: Exam not done. EXTREMITIES: 1 to 2+ edema. VASCULAR: No pulses felt, posterior or tibial, but capillary refill is normal. SKIN: No suspicious lesions or dermatitis. NEUROLOGIC Cognitive: Back to baseline. She has some expressive aphasia but is much improved. Motor: She has right leg paresis and some discoordination with right upper extremity, but both are improved. LABORATORY DATA: She has a white count of 7.8, hemoglobin 9 and hematocrit 29. Platelets are 93. The patient's sodium is 142, potassium 3.6. Chloride is 108, CO2 27, BUN 26. Creatinine is 1.2. Glucose is 101. Calcium is 8.1. Bilirubin is 0.5. Normal liver enzymes. Albumin is 2.6. ALLERGIES 1. CODEINE. 2. BENADRYL. 3. IBUPROFEN. 4. NAPROSYN. 5. ZOLPIDEM. HOME MEDICATIONS 1. Hydralazine 50 mg 3 times a day. 2. Allopurinol 300 mg a day. 3. Aspirin 325 daily. 4. Amlodipine 10 mg daily. 5. Albuterol 2 puffs every 4 hours. 6. Clonidine 0.3 patch every 7 days. 7. Effexor ER 307.5 mg a day. 8. Micardis 80 mg a day. 9. Metoprolol 100 mg a day. 10. Cetirizine 10 mg a day. 11. Rosuvastatin 5 mg a day. (That is Crestor 5 mg a day.) 12. Pantoprazole 40 mg a day. 13. Oxybutynin XL 15 mg at bedtime. 14. Glipizide 2.5 daily. 15. Gabapentin 600 mg q.p.m. 16. Gabapentin 300 mg at 1400. 17. Lasix 40 mg b.i.d. 18. Keppra 1 gram b.i.d. The patient is going to [facility]. Dr. Fabian was called to inform her of this patient's transfer. JOB #: [id number] EXT JOB #:[id number] MTDD
== END 2017-01-24 10:57 | DRG 981 ==
LOC: EDUNIT# → SUPCPDRO 02:33 → ED 02:33 → ICU 03:49 → MS 01-21 17:15
PROVIDERS: ADMIT Internal Medicine; ATTEND Internal Medicine
PROC: 0QH Lower Bones, Insertion (ICD-10-PCS; principal; 2017-01-22 09:35)
DX: R56.9 Unspecified convulsions (principal); I69.398 Other sequelae of cerebral infarction; H53.9 Unspecified visual disturbance; S82.002A Unspecified fracture of left patella, initial encounter for closed fracture; E11.9 Type 2 diabetes mellitus without complications; I10 Essential (primary) hypertension; I63.9 Cerebral infarction, unspecified; I69.354 Hemiplegia and hemiparesis following cerebral infarction affecting left non-dominant side; Z68.41 Body mass index [BMI] 40.0-44.9, adult; S82.025A Nondisplaced longitudinal fracture of left patella, initial encounter for closed fracture; I38 Endocarditis, valve unspecified; G83.11 Monoplegia of lower limb affecting right dominant side; E11.22 Type 2 diabetes mellitus with diabetic chronic kidney disease; Z79.02 Long term (current) use of antithrombotics/antiplatelets; I12.9 Hypertensive chronic kidney disease with stage 1 through stage 4 chronic kidney disease, or unspecified chronic kidney disease; N18.3 Chronic kidney disease, stage 3 (moderate); G47.33 Obstructive sleep apnea (adult) (pediatric); F32.9 Major depressive disorder, single episode, unspecified; F41.9 Anxiety disorder, unspecified; K21.9 Gastro-esophageal reflux disease without esophagitis; E66.9 Obesity, unspecified; E78.5 Hyperlipidemia, unspecified; J45.909 Unspecified asthma, uncomplicated; M10.9 Gout, unspecified; R32 Unspecified urinary incontinence; R35.0 Frequency of micturition; I45.9 Conduction disorder, unspecified; Z78.1 Physical restraint status; Z87.01 Personal history of pneumonia (recurrent); Z95.0 Presence of cardiac pacemaker; Z87.440 Personal history of urinary (tract) infections; Z79.84 Long term (current) use of oral hypoglycemic drugs; Z79.82 Long term (current) use of aspirin; Z88.6 Allergy status to analgesic agent
CPT/HCPCS: 36415; 51701; 70450; 71010; 80053; 81001; 81003; 83690; 83735; 84100; 85025; 87040; 87086; 87150; 94640; 96361; 96374; 96375; 99285

== ENCOUNTER 2017-01-24 11:04 | Outpatient (CLI) | payer MEDICARE, OTHER | END 2017-01-24 11:05 | LOC: EMS 11:04 | PROVIDERS: ATTEND Surgery | DX: R56.9 Unspecified convulsions (principal); S82.002A Unspecified fracture of left patella, initial encounter for closed fracture; W18.39XA Other fall on same level, initial encounter; Y92.009 Unspecified place in unspecified non-institutional (private) residence as the place of occurrence of the external cause | CPT/HCPCS: A0425; A0428 ==

== ENCOUNTER 2017-03-04 12:49 | Outpatient (CLI) | payer MEDICARE, OTHER ==
--- NOTE | 2017-03-04 13:41 | XRAY Report ---
THREE VIEW LEFT KNEE: 03/04/2017 CLINICAL INDICATION: Patellar fracture followup. FINDINGS: Frontal, lateral, and sunrise views of the left knee demonstrate two screws transfixing th e patella. Severe osteoarthritis is present. No effusion is appreciated. IMPRESSION: PATELLAR FRACTURE FIXATION. SEVERE OSTEOARTHRITIS. JOB #: [id number] EXT JOB #:[id number]
== END 2017-03-04 12:50 | disposition home or self-care (01) ==
LOC: DI 12:49
PROVIDERS: ATTEND Orthopaedic Surgery
DX: S82.025D Nondisplaced longitudinal fracture of left patella, subsequent encounter for closed fracture with routine healing (principal); M17.12 Unilateral primary osteoarthritis, left knee

== ENCOUNTER 2017-03-25 09:46 | Outpatient (CLI) | payer MEDICARE, OTHER ==
[2017-03-25 12:26] LABS: BASOPHILS # (AUTO) 0.1 10^3/uL (0.0-0.1); BASOPHILS % (AUTO) 0.8 %; EOSINOPHILS # (AUTO) 0.9 10^3/uL (0.0-0.7); EOSINOPHILS % (AUTO) 12.9 %; HCT - HEMATOCRIT 31.4 % (37.0-47.0); HGB - HEMOGLOBIN 9.9 g/dL (12.0-16.0); LYMPHOCYTES # (AUTO) 1.4 10^3/uL (1.5-3.5); MEAN CORPUSCULAR HEMOGLOBIN 25.8 pg (27.0-31.0); MEAN CORPUSCULAR HGB CONC 31.7 g/dL (32.0-36.0); MEAN CORPUSCULAR VOLUME 81.4 fL (81.0-99.0); MEAN PLATELET VOLUME 9.3 fL (7.9-10.8); MONOCYTES # (AUTO) 0.4 10^3/uL (0.0-1.0); MONOCYTES % (AUTO) 5.9 %; NEUTROPHILS # (AUTO) 4.5 10^3/uL (1.5-6.6); NEUTROPHILS % (AUTO) 61.4 %; RED BLOOD COUNT 3.85 10^6/uL (4.20-5.40); RED CELL DISTRIBUTION WIDTH 19.4 % (12.0-15.0); UNCORRECTED WHITE BLOOD COUNT 7.3 x10^3/uL; WHITE BLOOD COUNT 7.3 x10^3/uL (4.8-10.8)
[2017-03-25 12:55] LABS: ALBUMIN/GLOBULIN RATIO 1.1 (1.0-2.2); BILIRUBIN,TOTAL 0.3 mg/dL (0.2-1.0); BUN - BLOOD UREA NITROGEN 36 mg/dL (6-20); CALCIUM 9.1 mg/dL (8.5-10.3); CARBON DIOXIDE - CO2 28 mmol/L (21-32); CHLORIDE 105 mmol/L (101-111); CREATININE 1.7 mg/dL (0.4-1.0); GFR - MDRD 30 (>89); GLUCOSE 92 mg/dL (70-100); POTASSIUM 3.8 mmol/L (3.5-5.0); SODIUM 140 mmol/L (135-145); TOTAL PROTEIN 6.2 g/dL (6.7-8.2)
[2017-03-25 13:10] LABS: HEMOGLOBIN A1C 0.44 g/dL
== END 2017-03-25 09:47 | disposition home or self-care (01) ==
LOC: LAB.WCP 09:46
PROVIDERS: ATTEND Family Medicine
DX: E11.9 Type 2 diabetes mellitus without complications (principal); I12.9 Hypertensive chronic kidney disease with stage 1 through stage 4 chronic kidney disease, or unspecified chronic kidney disease; N18.3 Chronic kidney disease, stage 3 (moderate)
CPT/HCPCS: 36415; 80053; 83036; 84443; 85025

== ENCOUNTER 2017-05-01 14:09 | Outpatient (CLI) | payer MEDICARE, OTHER | END 2017-05-01 14:10 | disposition EMS.NT | LOC: EMS 14:09 | PROVIDERS: ATTEND Surgery | DX: Z03.89 Encounter for observation for other suspected diseases and conditions ruled out (principal); W18.39XA Other fall on same level, initial encounter; Y92.009 Unspecified place in unspecified non-institutional (private) residence as the place of occurrence of the external cause ==

== ENCOUNTER 2017-07-20 08:00 | Outpatient (CLI) | payer MEDICARE, OTHER | END 2017-07-20 08:01 | disposition home or self-care (01) | LOC: LAB.R 08:00 | PROVIDERS: ATTEND Physician Assistant Medical | DX: N39.0 Urinary tract infection, site not specified (principal) | CPT/HCPCS: 87077; 87086 ==

== ENCOUNTER 2017-08-04 11:05 | Outpatient (CLI) | payer MEDICARE, OTHER | END 2017-08-04 11:06 | disposition home or self-care (01) | LOC: LAB.R 11:05 | PROVIDERS: ATTEND Physician Assistant Medical | DX: N39.0 Urinary tract infection, site not specified (principal) | CPT/HCPCS: 87077; 87086 ==

== ENCOUNTER 2017-08-19 08:00 | Outpatient (CLI) | payer MEDICARE, OTHER | END 2017-08-19 08:01 | disposition home or self-care (01) | LOC: LAB.WCP 08:00 | PROVIDERS: ATTEND Family Medicine | DX: N39.0 Urinary tract infection, site not specified (principal); E11.40 Type 2 diabetes mellitus with diabetic neuropathy, unspecified; N18.3 Chronic kidney disease, stage 3 (moderate); I12.9 Hypertensive chronic kidney disease with stage 1 through stage 4 chronic kidney disease, or unspecified chronic kidney disease | CPT/HCPCS: 82043 ==

== ENCOUNTER 2017-08-27 16:45 | Outpatient (CLI) | payer MEDICARE, OTHER | END 2017-08-27 16:46 | disposition home or self-care (01) | LOC: LAB.R 16:45 | PROVIDERS: ATTEND Family Medicine | DX: N39.0 Urinary tract infection, site not specified (principal) | CPT/HCPCS: 87077; 87086 ==

== ENCOUNTER 2017-09-10 08:59 | Outpatient (CLI) | payer MEDICARE, OTHER ==
[2017-09-10 13:43] LABS: ALBUMIN 3.5 g/dL (3.2-5.5); ALBUMIN/GLOBULIN RATIO 1.1 (1.0-2.2); BILIRUBIN,TOTAL 0.2 mg/dL (0.2-1.0); CREATININE 1.6 mg/dL (0.4-1.0); TOTAL PROTEIN 6.8 g/dL (6.7-8.2)
[2017-09-10 14:25] LABS: HB2 TOTAL 12.5 g/dL; HEMOGLOBIN A1C 0.59 g/dL; HEMOGLOBIN A1C % 6.5 % (4.6-6.2)
== END 2017-09-10 09:00 | disposition home or self-care (01) ==
LOC: LAB.WCP 08:59
PROVIDERS: ATTEND Family Medicine
DX: E11.40 Type 2 diabetes mellitus with diabetic neuropathy, unspecified (principal); E11.22 Type 2 diabetes mellitus with diabetic chronic kidney disease; I12.9 Hypertensive chronic kidney disease with stage 1 through stage 4 chronic kidney disease, or unspecified chronic kidney disease; N18.3 Chronic kidney disease, stage 3 (moderate); N39.0 Urinary tract infection, site not specified
CPT/HCPCS: 36415; 80053; 83036

== ENCOUNTER 2017-11-23 18:08 | Outpatient (CLI) | payer MEDICARE, OTHER | END 2017-11-23 23:59 | disposition EMS.NT | LOC: EMS 18:08 | PROVIDERS: ATTEND Surgery | DX: Z03.89 Encounter for observation for other suspected diseases and conditions ruled out (principal) ==

== ENCOUNTER 2017-12-14 08:00 | Outpatient (CLI) | payer MEDICARE, OTHER ==
[2017-12-14 12:54] LABS: ALBUMIN 3.8 g/dL (3.2-5.5); ALBUMIN/GLOBULIN RATIO 1.1 (1.0-2.2); BILIRUBIN,TOTAL 0.6 mg/dL (0.2-1.0); CALCIUM 9.6 mg/dL (8.5-10.3); TOTAL PROTEIN 7.4 g/dL (6.7-8.2)
[2017-12-14 13:14] LABS: HB2 TOTAL 13.5 g/dL; HEMOGLOBIN A1C 0.62 g/dL; HEMOGLOBIN A1C % 6.4 % (4.6-6.2)
== END 2017-12-14 08:01 | disposition home or self-care (01) ==
LOC: LAB.WCP 08:00
PROVIDERS: ATTEND Family Medicine
DX: E11.9 Type 2 diabetes mellitus without complications (principal); Z79.891 Long term (current) use of opiate analgesic; I69.959 Hemiplegia and hemiparesis following unspecified cerebrovascular disease affecting unspecified side; B35.6 Tinea cruris; I42.1 Obstructive hypertrophic cardiomyopathy
CPT/HCPCS: 36415; 80053; 83036

== ENCOUNTER 2017-12-21 11:01 | Outpatient (CLI) | payer MEDICARE, OTHER | END 2017-12-21 11:02 | disposition critical access hospital (66) | LOC: EMS 11:01 | PROVIDERS: ATTEND Surgery | DX: M25.562 Pain in left knee (principal); W18.30XA Fall on same level, unspecified, initial encounter; Y93.01 Activity, walking, marching and hiking; Y92.009 Unspecified place in unspecified non-institutional (private) residence as the place of occurrence of the external cause | CPT/HCPCS: A0425; A0429 ==

== ENCOUNTER 2017-12-21 11:23 | Emergency (ER) | payer MEDICARE, OTHER ==
[2017-12-21] MEDS ORDERED: HYDROcod/ACETAM 5/325 MG TABLET PO STA (11:52)
--- NOTE | 2017-12-21 11:55 | ED Physician Documentation ---
PD HPI LOWER EXT INJURY - Stated complaint Stated Complaint: GLF - Chief complaint Chief Complaint: Ext Problem - History obtained from History obtained from: Patient, Friend, EMS - History of Present Illness PD HPI LOW EXT INJURY LOCATION: Left, Knee Type of injury: Fall Where injury occurred: Home Timing - onset: How many hours ago (1) Timing - duration: Hours (1) Timing - details: Abrupt onset Pain level max: 10 Pain level now: 10 Improved by: Rest, Ice, Immobilization Worsened by: Moving, Palpating Associated symptoms: No: Weakness, Numbness, Tingling, Swelling, Discolored Contributing factors: Prior ortho surgery (patellar fracture) Recently seen: Not recently seen - Additional information Additional information: tripped and fell at home, landing on her knees while using her walker. Review of Systems Constitutional: denies: Fever Ears: denies: Ear pain Nose: denies: Rhinorrhea / runny nose, Congestion Throat: denies: Sore throat Cardiac: denies: Chest pain / pressure Respiratory: denies: Cough Musculoskeletal: denies: Neck pain, Back pain Neurologic: denies: Headache PD PAST MEDICAL HISTORY - Past Medical History Past Medical History: Yes Cardiovascular: Hypertension, High cholesterol, Murmur, Arrhythmia Respiratory: Asthma, CPAP use Neuro: CVA, Seizure disorder Endocrine/Autoimmune: Type 2 diabetes GI: GERD : Incontinence, Frequency HEENT: None Psych: Depression, Anxiety Musculoskeletal: Osteoarthritis Derm: None - Past Surgical History Past Surgical History: Yes General: 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 /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 Cardiovascular: Pacemaker, AICD - Present Medications Home Medications: Ambulatory Orders Medication Instructions Recorded Confirmed Amlodipine Besylate 2.5 mg PO BID 06/06/13 01/20/17 Cetirizine HCl [Zyrtec] 10 mg PO DAILY 06/06/13 01/20/17 Furosemide [Lasix] 40 mg PO BID 06/06/13 01/20/17 Gabapentin 300 mg PO 1400 06/06/13 01/20/17 Glipizide [Glipizide ER] 2.5 mg PO DAILY 06/06/13 01/20/17 Metoprolol Succinate 100 mg PO BID 06/06/13 01/20/17 hydrALAZINE [Apresoline] 50 mg PO TID 06/06/13 01/20/17 Allopurinol 300 mg ORAL DAILY 08/08/14 01/20/17 Albuterol Sulfate [Proair Hfa] 2 puffs INH Q4H PRN 02/01/16 01/20/17 Oxybutynin Chloride [Ditropan Xl] 15 mg PO QPM 02/01/16 01/20/17 Rosuvastatin Calcium [Crestor] 5 mg PO QPM 02/01/16 01/20/17 Venlafaxine HCl [Venlafaxine HCl 37.5 mg PO DAILY 02/01/16 01/20/17 ER] Pantoprazole [Protonix] 40 mg PO QDAC 01/16/17 01/20/17 Gabapentin [Neurontin] 600 mg PO QPM 01/19/17 01/20/17 cloNIDine 0.3 MG PATCH 1 each TOP Q7D 01/19/17 01/20/17 [Puhbanyb-Emp-1] Aspirin [Aspirin EC] 325 mg PO DAILY 01/20/17 01/20/17 Hydrocodone/Acetaminophen 1 - 2 each PO Q6H PRN #20 tablet 12/21/17 [Hydrocodon-Acetaminophen 5-325] Potassium Chloride [Klor-Con 10] 12/21/17 - Allergies Allergies/Adverse Reactions: Allergies Allergy/AdvReac Type Severity Reaction Status Date / Time hydromorphone [From Dilaudid] Allergy Unknown Verified 12/21/17 11:32 codeine [Codeine] AdvReac Severe Hallucinati Verified 01/20/17 02:43 ons diphenhydramine citrate * AdvReac Intermediate unknown Verified 01/20/17 02:43 [From Excedrin PM] ibuprofen [From Advil] AdvReac Intermediate unknown Verified 01/20/17 02:43 naproxen sodium * AdvReac Intermediate unknown Verified 01/20/17 02:43 [From Aleve] zolpidem tartrate * AdvReac Intermediate Hives Verified 01/20/17 02:43 [From Ambien] - Social History Does the pt smoke?: No Smoking Status: Never smoker Does the pt drink ETOH?: No Does the pt have substance abuse?: No - Immunizations Immunizations are current?: Yes - POLST Patient has POLST: No PD ED PE NORMAL - Vitals Vital signs reviewed: Yes - General General: Alert and oriented X 3, No acute distress - HEENT HEENT: Atraumatic, PERRL, Moist mucous membranes - Neck Neck: Supple, no meningeal sign, No bony TTP - Cardiac Cardiac: RRR - Respiratory Respiratory: No respiratory distress - Back Back: No spinal TTP - Derm Derm: Warm and dry - Extremities Extremities: No deformity (no tenderness over B hips and ankles), Other (L knee - diffuse TTP, pain with ROM. ACL, MCL, LCL, PCL grossly intact. Limited exam 2 /2 pain. Also TTP over distal L femur. NVI. R knee - no acute abnormalities on exam. ) - Neuro Neuro: Alert and oriented X 3 - Psych Psych: Normal mood, Normal affect Results - Vitals Vitals: Oxygen O2 Source [Without Activity] increased to 95% on RA O2 Source Room air - Rads (name of study) L knee xray Radiology: Prelim report reviewed, EMP read contemporaneously, See rad report ( No acute bony abnormality) L femur xray Radiology: Prelim report reviewed, EMP read contemporaneously, See rad report ( No acute bony abnormality) PD MEDICAL DECISION MAKING - ED course Complexity details: reviewed results, re-evaluated patient, considered differential, d/w patient, d/w family ED course: Patient is a 72-year-old female who presents to the emergency department with left knee pain after a fall. No acute abnormality on x-rays. Placed an articulating knee brace set from 80-10 and ambulating well with a walker. Will prescribe pain medication for home. We will have her follow-up with her doctor for further care and repeat evaluation of her knee once the swelling has decreased and she is able to get a better ligamentous exam. No other acute injuries. Patient counseled regarding signs and symptoms for which I believe and urgent re-evaluation would be necessary. Patient with good understanding of and agreement to plan and is comfortable going home at this time This document was made in part using voice recognition software. While efforts are made to proofread this document, sound alike and grammatical errors may occur. Pulse ox at time of discharge was 95% on room air, not 59% as documented by the nurse Departure - Departure Disposition: 01 Home, Self Care Clinical Impression: Knee contusion Qualifiers: Encounter type: initial encounter Laterality: left Qualified Code(s): S80.02XA - Contusion of left knee, initial encounter Condition: Good Instructions: ED Contusion Lower Ext Follow-Up: Manuel Jin MD [Primary Care Provider] - Within 1 week Prescriptions: Hydrocodone/Acetaminophen [Hydrocodon-Acetaminophen 5-325] 1 - 2 each PO Q6H PRN #20 tablet PRN Reason: pain Comments: Return if you worsen. This should improve over the next few days. Wear the knee brace as much as possible to help support your knee. You should also be using a walker for ambulation. Do not drink alcohol or drive while on narcotic pain medicine. Note that many narcotic pain relievers also contain tylenol/acetaminophen. Please ensure that your total dose of acetaminophen from all sources does not exceed 3 grams (3000mg) per day. You may constipated on this medication, take a stool softener such as "Colace" twice a day while you are on it. Also recommend a [id number] laxative such as senna or MiraLAX any day that you do not have a bowel movement. If you received narcotic pain medication in the emergency department, do not drive or operate machinery for the next 24 hours. Discharge Date/Time: 12/21/17 14:05
--- NOTE | 2017-12-21 12:58 | XRAY Report ---
EXAM: LEFT FEMUR RADIOGRAPHY EXAM DATE: 12/21/2017 12:46 PM. CLINICAL HISTORY: Left leg pain. Fall. COMPARISON: None. TECHNIQUE: 2 views. FINDINGS: Bones: Portions of the proximal left femur are not well seen due to overlying soft tissue attenuation . Otherwise, no definitive evidence for fracture. Degenerative spurring. Prior internal fixation with 2 transversely aortic fixation screws in the left patella. Joints: Joint space narrowing of the left hip joint and left knee joint. No dislocation. Soft Tissues: Normal. No soft tissue swelling. IMPRESSION: 1. No acute osseous abnormalities. 2. Degenerative changes of the left hip joint and left knee. 3. Status post ORIF of left patella. [facility] Referring Provider Line: [phone] SITE ID: [id number]
--- NOTE | 2017-12-21 12:59 | XRAY Report ---
EXAM: LEFT KNEE RADIOGRAPHY EXAM DATE: 12/21/2017 12:47 PM. CLINICAL HISTORY: L leg pain s/p fall. COMPARISON: 03/04/2017. TECHNIQUE: 2 views. FINDINGS: Bones: No acute fracture or bony lesion. Degenerative spurring. Status post ORIF of left patella. Joints: Joint space narrowing of the medial, lateral and patellofemoral compartment. Small left knee effusion. No dislocation. Soft Tissues: Normal. No soft tissue swelling. IMPRESSION: 1. No acute osseous abnormalities. 2. Degenerative changes of the left knee. [facility] Referring Provider Line: [phone] SITE ID: [id number]
[2017-12-21 13:44] VITALS: BP 125/82
== END 2017-12-21 14:05 | disposition home or self-care (01) ==
LOC: EDUNIT# → ED 11:23
DX: S80.02XA Contusion of left knee, initial encounter (principal); W01.0XXA Fall on same level from slipping, tripping and stumbling without subsequent striking against object, initial encounter; Y93.01 Activity, walking, marching and hiking; Y92.009 Unspecified place in unspecified non-institutional (private) residence as the place of occurrence of the external cause; I10 Essential (primary) hypertension; E11.9 Type 2 diabetes mellitus without complications; E78.00 Pure hypercholesterolemia, unspecified; Z86.73 Personal history of transient ischemic attack (TIA), and cerebral infarction without residual deficits; Z95.810 Presence of automatic (implantable) cardiac defibrillator; Z79.82 Long term (current) use of aspirin
CPT/HCPCS: 73552; 73560; 99283; A9270

== ENCOUNTER 2018-01-07 06:44 | Outpatient (CLI) | payer MEDICARE, OTHER ==
[2018-01-07 12:26] LABS: BILIRUBIN,URINE NEGATIVE (NEGATIVE); GLUCOSE, URINE (UA) NEGATIVE (NEGATIVE); KETONES,URINE (UA) NEGATIVE (NEGATIVE); LEUKOCYTE ESTERASE, URINE LARGE (NEGATIVE); NITRITE,URINE NEGATIVE (NEGATIVE); OCCULT BLOOD,URINE TRACE-LYSE (NEGATIVE); PH,URINE 5.5 PH (5.0-7.5); PROTEIN,URINE 30 mg/dL (NEGATIVE); UROBILINOGEN,URINE 0.2 (NORMAL) E.U./dL (NORMAL)
[2018-01-07 12:34] LABS: CLARITY,URINE TURBID (CLEAR)
[2018-01-07 12:38] LABS: BACTERIA,URINE Rare /HPF (None Seen); RBC,URINE 0-5 /HPF (0-5); SQUAMOUS EPITHELIAL CELL,UR RARE Squamous (<= Few)
== END 2018-01-07 06:45 | disposition home or self-care (01) ==
LOC: LAB.WCP 06:44
PROVIDERS: ATTEND Family Medicine
DX: N39.0 Urinary tract infection, site not specified (principal)
CPT/HCPCS: 81001; 87086

== ENCOUNTER 2018-01-19 16:00 | Outpatient (CLI) | payer MEDICARE, OTHER ==
[2018-01-19 18:57] LABS: BILIRUBIN,URINE NEGATIVE (NEGATIVE); GLUCOSE, URINE (UA) NEGATIVE (NEGATIVE); KETONES,URINE (UA) NEGATIVE (NEGATIVE); LEUKOCYTE ESTERASE, URINE LARGE (NEGATIVE); NITRITE,URINE NEGATIVE (NEGATIVE); OCCULT BLOOD,URINE TRACE-LYSE (NEGATIVE); PH,URINE 5.5 PH (5.0-7.5); PROTEIN,URINE TRACE mg/dL (NEGATIVE); UROBILINOGEN,URINE 0.2 (NORMAL) E.U./dL (NORMAL)
[2018-01-19 19:00] LABS: CLARITY,URINE CLOUDY (CLEAR)
[2018-01-19 19:22] LABS: BACTERIA,URINE Moderate /HPF (None Seen); SQUAMOUS EPITHELIAL CELL,UR FEW Squamous (<= Few); WBC CLUMPS,URINE PRESENT
== END 2018-01-19 16:01 | disposition home or self-care (01) ==
LOC: LAB.R 16:00
PROVIDERS: ATTEND Family Medicine
DX: N39.0 Urinary tract infection, site not specified (principal)
CPT/HCPCS: 81001; 87086

== ENCOUNTER 2018-01-21 16:30 | Outpatient (CLI) | payer MEDICARE, OTHER | END 2018-01-21 16:31 | disposition EMS.NT | LOC: EMS 16:30 | PROVIDERS: ATTEND Surgery | DX: Z03.89 Encounter for observation for other suspected diseases and conditions ruled out (principal) ==

== ENCOUNTER 2018-01-30 10:01 | Outpatient (CLI) | payer MEDICARE, OTHER | END 2018-01-30 10:02 | disposition critical access hospital (66) | LOC: EMS 10:01 | PROVIDERS: ATTEND Surgery | DX: R53.1 Weakness (principal); W18.39XA Other fall on same level, initial encounter; Y92.008 Other place in unspecified non-institutional (private) residence as the place of occurrence of the external cause | CPT/HCPCS: A0425; A0429 ==

== ENCOUNTER 2018-01-30 10:48 | Inpatient (IN) | payer MEDICARE, OTHER ==
[2018-01-30] MEDS ORDERED: SODIUM CHLORIDE 0.9% 1,000 ML IV ONE ×3 (10:54→12:53)
--- NOTE | 2018-01-30 11:00 | ED Physician Documentation ---
History of Present Illness - Stated complaint Stated Complaint: WEAKNESS - Additonal information Additional information: hx from pt and EMS and EMR 72 f recurrent UTIS most recent tx with septra by PMD - started after cath urine in office (which was unfortunately contaminated per pt report) BIBA today for diffuse weakness today too weak to stand fell landing on her bottom s injury no blood thinners no head neck hip etc injury no focal weakness or numbness - just weak all over no fever no CP or cough or SOA no NVD some R flank pain NN are not importing into hsitory so plz see NN for Pmhx meds allergies she has hx HTN HLD DM cardiac PPM defib renal insuff CVA recurrent UTI sleep apnea seizures among others Review of Systems Constitutional: reports: Fatigue. denies: Fever, Chills Cardiac: denies: Chest pain / pressure Respiratory: denies: Dyspnea, Cough GI: denies: Abdominal Pain, Nausea, Vomiting, Diarrhea : reports: Other (recurrent UTI) Musculoskeletal: reports: Back pain (R flank and chronic back pain) Neurologic: reports: Generalized weakness. denies: Focal weakness, Numbness, Headache, Head injury Endocrine: denies: Easy bruising / bleeding Immunocompromised: denies: Immunocompromised PD PAST MEDICAL HISTORY - Present Medications Home Medications: Ambulatory Orders Medication Instructions Recorded Confirmed Amlodipine Besylate 2.5 mg PO BID 06/06/13 01/20/17 Cetirizine HCl [Zyrtec] 10 mg PO DAILY 06/06/13 01/20/17 Furosemide [Lasix] 40 mg PO BID 06/06/13 01/20/17 Gabapentin 300 mg PO 1400 06/06/13 01/20/17 Glipizide [Glipizide ER] 2.5 mg PO DAILY 06/06/13 01/20/17 Metoprolol Succinate 100 mg PO BID 06/06/13 01/20/17 hydrALAZINE [Apresoline] 50 mg PO TID 06/06/13 01/20/17 Allopurinol 300 mg ORAL DAILY 08/08/14 01/20/17 Albuterol Sulfate [Proair Hfa] 2 puffs INH Q4H PRN 02/01/16 01/20/17 Oxybutynin Chloride [Ditropan Xl] 15 mg PO QPM 02/01/16 01/20/17 Rosuvastatin Calcium [Crestor] 5 mg PO QPM 02/01/16 01/20/17 Venlafaxine HCl [Venlafaxine HCl 37.5 mg PO DAILY 02/01/16 01/20/17 ER] Pantoprazole [Protonix] 40 mg PO QDAC 01/16/17 01/20/17 Gabapentin [Neurontin] 600 mg PO QPM 01/19/17 01/20/17 cloNIDine 0.3 MG PATCH 1 each TOP Q7D 01/19/17 01/20/17 [[id number]] Aspirin [Aspirin EC] 325 mg PO DAILY 01/20/17 01/20/17 Hydrocodone/Acetaminophen 1 - 2 each PO Q6H PRN #20 tablet 12/21/17 [Hydrocodon-Acetaminophen 5-325] Potassium Chloride [Klor-Con 10] 12/21/17 Levetiracetam [Keppra] 500 mg PO BID 01/30/18 01/30/18 - Allergies Allergies/Adverse Reactions: Allergies Allergy/AdvReac Type Severity Reaction Status Date / Time hydromorphone [From Dilaudid] Allergy Unknown Verified 12/21/17 11:32 codeine [Codeine] AdvReac Severe Hallucinati Verified 01/20/17 02:43 ons diphenhydramine citrate * AdvReac Intermediate unknown Verified 01/20/17 02:43 [From Excedrin PM] ibuprofen [From Advil] AdvReac Intermediate unknown Verified 01/20/17 02:43 naproxen sodium * AdvReac Intermediate unknown Verified 01/20/17 02:43 [From Aleve] zolpidem tartrate * AdvReac Intermediate Hives Verified 01/20/17 02:43 [From Ambien] PD ED PE NORMAL - Vitals Vital signs reviewed: Yes - General General: Alert and oriented X 3 - HEENT HEENT: Atraumatic, PERRL - Neck Neck: No bony TTP - Cardiac Cardiac: RRR (+ murmur not new, PPM) - Respiratory Respiratory: No respiratory distress, Clear bilaterally - Abdomen Abdomen: Soft, Non tender - Back Back: Other (no spinal TTP mild R CVA TTP) - Derm Derm: Normal color - Extremities Extremities: No deformity - Neuro Neuro: Alert and oriented X 3, invasive cardiologist 2-12 intact, No motor deficit, No sensory deficit, Normal speech, Other (generally weak and can barely lift her legs from the bed, but no focal findings) Eye Opening: Spontaneous Motor: Obeys Commands Verbal: Oriented GCS Score: 15 Results - Vitals Vitals: Vital Signs - 24 hr 01/30/18 01/30/18 10:48 11:30 Temperature 36.0 C L Heart Rate 63 72 Respiratory 16 16 Rate Blood Pressure 141/90 H 127/69 O2 Saturation 98 95 Oxygen O2 Source [] increased to 95% on RA O2 Source Room air - EKG (time done) 1120 Rate: Rate (enter#) Rhythm: Other (paced at approx 60, some PVCs) Ischemia: Other (similar to prior EKG from 2017 except I-QVF leads where there is a PVC that obscures eval for ischemia, will repeat) 1132 Rate: Rate (enter#) Rhythm: Other (paced at 60) Ischemia: Other (better EKG, no PVCs, paced s acute ischemia and similar to 2017 EKG) - Labs Labs: Laboratory Tests 01/30/18 01/30/18 01/30/18 11:11 11:11 11:11 WBC 10.1 RBC 4.74 Hgb 12.8 Hct 39.9 MCV 84.1 MCH 27.0 MCHC 32.1 RDW 19.2 H Plt Count 137 MPV 9.2 Neut # (Auto) 7.6 H Lymph # (Auto) 1.6 [place] # (Auto) 0.6 Eos # (Auto) 0.2 Baso # (Auto) 0.0 Absolute Nucleated RBC 0.00 Nucleated RBC % 0.0 Sodium 128 L Potassium 4.8 Chloride 96 L Carbon Dioxide 22 Anion Gap 10.0 BUN 76 H Creatinine 2.7 H Estimated GFR (MDRD) 17 L Glucose 91 Lactic Acid Calcium 14.2 H* Phosphorus Magnesium Troponin I 0.07 Urine Color Urine Clarity Urine pH Ur Specific [place] Urine Protein Urine Glucose (UA) Urine Ketones Urine Occult Blood Urine Nitrite Urine Bilirubin Urine Urobilinogen Ur Leukocyte Esterase Urine RBC Urine WBC Ur Squamous Epith Cells Amorphous Sediment Urine Bacteria Ur Microscopic Review Urine Culture Comments 01/30/18 01/30/18 01/30/18 11:11 11:37 12:08 WBC RBC Hgb Hct MCV MCH MCHC RDW Plt Count MPV Neut # (Auto) Lymph # (Auto) [place] # (Auto) Eos # (Auto) Baso # (Auto) Absolute Nucleated RBC Nucleated RBC % Sodium Potassium Chloride Carbon Dioxide Anion Gap BUN Creatinine Estimated GFR (MDRD) Glucose Lactic Acid 1.2 Calcium 13.9 H* Phosphorus 3.8 Magnesium 2.2 Troponin I Urine Color YELLOW Urine Clarity CLOUDY Urine pH 5.5 Ur Specific [place] 1.015 Urine Protein 30 H Urine Glucose (UA) NEGATIVE Urine Ketones TRACE Urine Occult Blood TRACE-INTA Urine Nitrite POSITIVE H Urine Bilirubin NEGATIVE Urine Urobilinogen 0.2 (NORMAL) Ur Leukocyte Esterase LARGE H Urine RBC 0-5 Urine WBC >25 H Ur Squamous Epith Cells NONE SEEN Amorphous Sediment Few Urine Bacteria Many H Ur Microscopic Review INDICATED Urine Culture Comments INDICATED PD MEDICAL DECISION MAKING - ED course ED course: last urine culture that grew out was kelbsiella senstive to all except cipro and levaquin - so gave rocephin markedly elevated calcium - was fine a few month ago - so repeated and is accurate profound generalized weakness coulf be due to UTII and or to hypercalcemia for hypercalcemia gave 1 L NS bolus the 250/hr and calcitonin - and since no known malignany will discuss biphos such as zoldronic acid with admitting team renal insuff is not new but is worse than before, will discuss diuretic for hyperca with admitting team as well - Sepsis Event Vital Signs: Vital Signs - 24 hr 01/30/18 01/30/18 10:48 11:30 Temperature 36.0 C L Heart Rate 63 72 Respiratory 16 16 Rate Blood Pressure 141/90 H 127/69 O2 Saturation 98 95 Oxygen O2 Source [] increased to 95% on RA O2 Source Room air Departure - Departure Disposition: 66 [facility] DC/Xfer Clinical Impression: Hypercalcemia, Renal insufficiency, Hyponatremia, Pyelonephritis, Weakness
[2018-01-30 11:16] LABS: BASOPHILS % (AUTO) 0.4 %; EOSINOPHILS # (AUTO) 0.2 10^3/uL (0.0-0.7); EOSINOPHILS % (AUTO) 2.3 %; HGB - HEMOGLOBIN 12.8 g/dL (12.0-16.0); LYMPHOCYTES # (AUTO) 1.6 10^3/uL (1.5-3.5); LYMPHOCYTES % (AUTO) 16.1 %; MEAN CORPUSCULAR HGB CONC 32.1 g/dL (32.0-36.0); MEAN CORPUSCULAR VOLUME 84.1 fL (81.0-99.0); MEAN PLATELET VOLUME 9.2 fL (7.9-10.8); MONOCYTES # (AUTO) 0.6 10^3/uL (0.0-1.0); MONOCYTES % (AUTO) 5.8 %; NEUTROPHILS # (AUTO) 7.6 10^3/uL (1.5-6.6); NEUTROPHILS % (AUTO) 75.4 %; PLT - PLATELET COUNT 137 10^3/uL (130-450); RED BLOOD COUNT 4.74 10^6/uL (4.20-5.40); RED CELL DISTRIBUTION WIDTH 19.2 % (12.0-15.0); WHITE BLOOD COUNT 10.1 x10^3/uL (4.8-10.8)
[2018-01-30 11:24] LABS: CREATININE 2.7 mg/dL (0.4-1.0)
[2018-01-30 11:26] LABS: CALCIUM 14.2 mg/dL (8.5-10.3)
[2018-01-30 11:40] LABS: BILIRUBIN,URINE NEGATIVE (NEGATIVE); GLUCOSE, URINE (UA) NEGATIVE (NEGATIVE); KETONES,URINE (UA) TRACE mg/dL (NEGATIVE); LEUKOCYTE ESTERASE, URINE LARGE (NEGATIVE); NITRITE,URINE POSITIVE (NEGATIVE); OCCULT BLOOD,URINE TRACE-INTA (NEGATIVE); PH,URINE 5.5 PH (5.0-7.5); PROTEIN,URINE 30 mg/dL (NEGATIVE); UROBILINOGEN,URINE 0.2 (NORMAL) E.U./dL (NORMAL)
[2018-01-30 11:43] LABS: CLARITY,URINE CLOUDY (CLEAR)
[2018-01-30 12:03] LABS: BACTERIA,URINE Many /HPF (None Seen); RBC,URINE 0-5 /HPF (0-5); SQUAMOUS EPITHELIAL CELL,UR NONE SEEN (<= Few)
[2018-01-30 12:04] LABS: AMORPHOUS SEDIMENT,UR Few /LPF
[2018-01-30 12:26] LABS: CALCIUM 13.9 mg/dL (8.5-10.3); MAGNESIUM 2.2 mg/dL (1.7-2.8); PHOSPHORUS 3.8 mg/dL (2.5-4.6)
[2018-01-30] MEDS ORDERED: cefTRIAXone 1 GM in SODIUM CHLORIDE 0.9% MINIBAG 100 ML IV STA (12:27)
[2018-01-30] MEDS ORDERED: CALCITONIN 400 UNITS/2 ML VIAL IM ONE (12:49)
[2018-01-30] MEDS ORDERED: SODIUM CHLORIDE FLUSH 0.9% 10 ML SYRINGE IVP PRN (13:12)
[2018-01-30] MEDS ORDERED: ALBUTEROL NEB 2.5 MG/3 ML INH PRN (13:22)
--- NOTE | 2018-01-30 13:55 | HISTORY & PHYSICAL EXAMINATION ---
Chief Complaint - Chief Complaint Chief Complaint: Weakness History of Present Illness - Admitted From Admitted From:: Home - History Obtained From History obtained from: Pt, , ED Physician - History of Present Illness HPI Comment/Other: Mrs. Malka Dejesus is a very pleasant 72-year-old female with an extensive past medical history significant for renal insufficiency, CVA, diabetes mellitus, recurrent urinary tract infections, hypertension, COPD, gout, gastroesophageal reflux disease, congestive heart failure, and seizure disorder. She has been having increasing weakness over the last several days and this morning she was so weak that she decided to come to the emergency department. While here was found that she had a calcium level of 14.1 and a urinary tract infection. She is also hyponatremic. She will be admitted to medical surgical floor bed, placed on telemetry, and we will correct her electrolytes and treat her urinary tract infection. History - Past Medical History Cardiovascular: reports: Hypertension, High cholesterol, Murmur, Arrhythmia Respiratory: reports: Asthma, CPAP use Neuro: reports: CVA, Seizure disorder Endocrine/Autoimmune: reports: Type 2 diabetes GI: reports: GERD : reports: Incontinence, Frequency, Other HEENT: reports: None Psych: reports: Depression, Anxiety Musculoskeletal: reports: Osteoarthritis Derm: reports: None MRSA Hx?: No Other Past Medical History: chronic UTI - Past Surgical History General: reports: 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 /[employer]CTION: reports: Hysterectomy Cardiovascular: reports: Pacemaker, AICD - Family & Social History Family History Comment/Other: Patient does not know her family history because she was adopted. Living arrangement: At home Living Situation: With spouse/s.o. - Substance History Use: Uses substance without health or social issues: NONE Abuse: Recurrent use of substance despite neg consequences: NONE Dependence: Experiences withdrawal or developed tolerances: NONE - POLST Patient has POLST: No POLST Status: Full Code Meds/Allgy - Home Medications Home Medications: Ambulatory Orders Medication Instructions Recorded Confirmed Amlodipine Besylate 2.5 mg PO BID 06/06/13 01/20/17 Cetirizine HCl [Zyrtec] 10 mg PO DAILY 06/06/13 01/20/17 Furosemide [Lasix] 40 mg PO BID 06/06/13 01/20/17 Gabapentin 300 mg PO 1400 06/06/13 01/20/17 Glipizide [Glipizide ER] 2.5 mg PO DAILY 06/06/13 01/20/17 Metoprolol Succinate 100 mg PO BID 06/06/13 01/20/17 hydrALAZINE [Apresoline] 50 mg PO TID 06/06/13 01/20/17 Allopurinol 300 mg ORAL DAILY 08/08/14 01/20/17 Albuterol Sulfate [Proair Hfa] 2 puffs INH Q4H PRN 02/01/16 01/20/17 Oxybutynin Chloride [Ditropan Xl] 15 mg PO QPM 02/01/16 01/20/17 Rosuvastatin Calcium [Crestor] 5 mg PO QPM 02/01/16 01/20/17 Venlafaxine HCl [Venlafaxine HCl 37.5 mg PO DAILY 02/01/16 01/20/17 ER] Pantoprazole [Protonix] 40 mg PO QDAC 01/16/17 01/20/17 Gabapentin [Neurontin] 600 mg PO QPM 01/19/17 01/20/17 cloNIDine 0.3 MG PATCH 1 each TOP Q7D 01/19/17 01/20/17 [[id number]] Aspirin [Aspirin EC] 325 mg PO DAILY 01/20/17 01/20/17 Hydrocodone/Acetaminophen 1 - 2 each PO Q6H PRN #20 tablet 12/21/17 [Hydrocodon-Acetaminophen 5-325] Potassium Chloride [Klor-Con 10] 12/21/17 Levetiracetam [Keppra] 500 mg PO BID 01/30/18 01/30/18 - Allergies Allergies/Adverse Reactions: Allergies Allergy/AdvReac Type Severity Reaction Status Date / Time hydromorphone [From Dilaudid] Allergy Unknown Verified 12/21/17 11:32 codeine [Codeine] AdvReac Severe Hallucinati Verified 01/20/17 02:43 ons diphenhydramine citrate * AdvReac Intermediate unknown Verified 01/20/17 02:43 [From Excedrin PM] ibuprofen [From Advil] AdvReac Intermediate unknown Verified 01/20/17 02:43 naproxen sodium * AdvReac Intermediate unknown Verified 01/20/17 02:43 [From Aleve] zolpidem tartrate * AdvReac Intermediate Hives Verified 01/20/17 02:43 [From Ambien] Review of Systems - Constitutional Constitutional: reports: Fatigue, Weakness. denies: Fever, Chills, Malaise, Night sweats - Eyes Eyes: denies: Pain, Irritation, Amaurosis, Blurred vision - Ears, Nose & Throat Ears, Nose & Throat: denies: Ear pain, Hearing loss, Hearing aids, Tinnitus, Vertigo, Nasal pain, Nasal discharge - Cardiovascular Cariovascular: denies: Irregular heart rate, Palpitations, Chest pain, Edema, Syncope, Orthopnea - Respiratory Respiratory: denies: Cough, Sputum production, Wheezing, Snoring, Hemoptysis - Gastrointestinal Gastrointestinal: denies: Abdominal pain, Abdominal distention, Constipation, Diarrhea, Change in bowel habits, Rectal bleeding - Genitourinary Genitourinary: reports: Dysuria, Frequency, Urgency. denies: Hematuria - Musculoskeletal Musculoskeletal: reports: Muscle weakness. denies: Muscle pain, Back pain, Muscle aches, Stiffness - Integumentary Integumentary: denies: Rash, Pruritis, Lesions, Dryness, Lumps - Neurological Neurological: reports: General weakness. denies: Focal weakness, Headache, Dizziness, Abnormal gait - Psychiatric Psychiatric: denies: Depression, Anxiety, Suicidal, Hallucinations, Homicidal - Endocrine Endocrine: reports: Polyuria. denies: Polydypsia, Polyphagia - Hematologic/Lymphatic Hematologic/Lymphatic: denies: Anemia, Bruising, Petechiae, Lymphadenopathy - All Other Systems All Other Systems: reports: Reviewed and negative Exam - Vital Signs Reviewed Vital Signs: Yes Vital Signs: Vital Signs x48h Temp Pulse Resp BP Pulse Ox 01/30/18 13:49 36.0 C L 63 16 145/90 H 95 01/30/18 13:12 60 16 143/88 H 96 01/30/18 11:30 72 16 127/69 95 01/30/18 10:48 36.0 C L 63 16 141/90 H 98 - Physical Exam General Appearance: positive: No acute distress, Alert Eyes Bilateral: positive: Normal inspection, PERRL, EOMI, No lid inflammation, Conjunctivae nml, No scleral icterus ENT: positive: ENT inspection nml, Pharynx nml, No signs of dehydration Neck: positive: Nml inspection, Thyroid nml, No JVD, Trachea midline. negative : Thyromegaly Respiratory: positive: Chest non-tender, No respiratory distress, Breath sounds nml. negative: Wheezes, Rales, Rhonchi Cardiovascular: positive: Regular rate & rhythm, No gallop, Other (4/6 SHANA) Peripheral Pulses: positive: 1+ Abdomen: positive: Non-tender, No organomegaly, Nml bowel sounds, No distention. negative: Guarding, Rebound Back: positive: Nml inspection. negative: CVA tenderness (R), CVA tenderness (L ) Skin: positive: Color nml, No rash, Warm, Dry. negative: Cyanosis Extremities: positive: Non-tender, Full ROM, Nml appearance, No pedal edema Neurologic/Psychiatric: positive: Oriented x3, CN's nml (2-12), Motor nml, Sensation nml, Mood/affect nml Conclusion/Plan - Problem List (1) Hypercalcemia Conclusion/Plan: The patient presented to the emergency department with severe hypercalcemia, 14.1. She was given IV fluids and calcitonin and this has come down to 13.7. We will admit her to medical surgical bed on telemetry and give her IV fluids with low-dose loop diuretics. She has a history of renal insufficiency and severe concentric left ventricular hypertrophy which makes flushing the calcium out of her system a delicate process. We will check her parathyroid hormone levels and parathyroid hormone related protein levels. Will obtain an albumin level. (2) History of congestive heart failure Conclusion/Plan: The patient has been on Lasix, 40 mg twice daily for many years. Continue Lasix , metoprolol, we will check BNP level, and gently diurese the patient while we are flushing the calcium out of her system. (3) HTN (hypertension) Conclusion/Plan: The patient's blood pressure remains elevated and we are giving her high-dose fluids. We will continue with Lasix, add spironolactone, and continue with the patient's home dosing of amlodipine and metoprolol. Qualifiers: Hypertension type: essential hypertension Qualified Code(s): I10 - Essential (primary) hypertension (4) T2DM (type 2 diabetes mellitus) Conclusion/Plan: We will place the patient on a carb controlled diet, continue her home medications of glipizide, check her hemoglobin A1c, and cover her with a sliding scale. (5) UTI (urinary tract infection) Conclusion/Plan: Reportedly the patient has had the urinary tract infection for approximately 6 months and has had 2 separate urinalyses/cultures which failed to isolate the bacteria and she has failed multiple attempts at outpatient therapy. We will start the patient empirically on ceftriaxone and await the results of the sensitivities. Qualifiers: Urinary tract infection type: site unspecified Hematuria presence: without hematuria Qualified Code(s): N39.0 - Urinary tract infection, site not specified (6) History of gout Conclusion/Plan: No active gout at this time, continue allopurinol (7) Allergic rhinitis Conclusion/Plan: We will continue the patient on Zyrtec daily. (8) COPD (chronic obstructive pulmonary disease) Conclusion/Plan: We will continue the patient on home dosing of albuterol as needed. - Lab Results Lab results reviewed: Yes Timur Bones: 01/30/18 11:11 01/30/18 11:11 Core Measures - Anticipated LOS I expect patient to be DC'd or transferred within 96 hours.: Yes - DVT/VTE - Prophylaxis VTE/DVT Device ordered at admit?: Yes
[2018-01-30 14:02] LABS: ALBUMIN 3.5 g/dL (3.2-5.5); ALKALINE PHOSPHATASE 40 IU/L (42-121); ALT ALANINE AMINOTRANSFERASE 21 IU/L (10-60); AST ASPARTATE AMINOTRANSFERASE 33 IU/L (10-42); BILIRUBIN,TOTAL 0.7 mg/dL (0.2-1.0); BUN - BLOOD UREA NITROGEN 74 mg/dL (6-20); CARBON DIOXIDE - CO2 20 mmol/L (21-32); CHLORIDE 96 mmol/L (101-111); CREATININE 2.7 mg/dL (0.4-1.0); GFR - MDRD 17 (>89); GLUCOSE 90 mg/dL (70-100); SODIUM 128 mmol/L (135-145); TOTAL PROTEIN 6.9 g/dL (6.7-8.2)
[2018-01-30] MEDS: hydrALAZINE 25 MG TABLET PO SCH ×2 (14:49→21:57)
[2018-01-30] MEDS: ONDANSETRON ODT 4 MG TABLET TL PRN ×2 (14:49→21:03)
[2018-01-30] MEDS: NS W/20 MEQ KCL 1,000 ML IV SCH ×2 (14:49→20:55)
[2018-01-30] MEDS: GABAPENTIN 300 MG CAPSULE PO SCH ×2 (14:49→21:56)
[2018-01-30] MEDS: SPIRONOLACTONE 25 MG TABLET PO SCH (14:50)
[2018-01-30] MEDS: SODIUM CHLORIDE FLUSH 0.9% 10 ML SYRINGE IVP SCH (15:38)
[2018-01-30] MEDS ORDERED: cloNIDine 0.3 MG PATCH TOP SCH (16:00)
[2018-01-30] MEDS: FUROSEMIDE 40 MG TABLET PO SCH (16:21)
[2018-01-30] MEDS: HYDROcod/ACETAM 5/325 MG TABLET PO PRN (17:35)
[2018-01-30] MEDS ORDERED: FUROSEMIDE 40 MG TABLET PO SCH (21:00)
[2018-01-30] MEDS: NYSTATIN POWDER 15 GM TOP SCH (21:54)
[2018-01-30] MEDS: amLODIPine 5 MG TABLET PO SCH (21:55)
[2018-01-30] MEDS: METOPROLOL SUCCINATE 50 MG TABLET PO SCH (21:55)
[2018-01-30] MEDS: levETIRAcetam 250 MG TABLET PO SCH (21:57)
[2018-01-30] MEDS: OXYBUTYNIN CHLORIDE 20 MG PO SCH (21:58)
[2018-01-31] MEDS: SODIUM CHLORIDE FLUSH 0.9% 10 ML SYRINGE IVP SCH ×3 (01:20→15:26)
[2018-01-31] MEDS: NS W/20 MEQ KCL 1,000 ML IV SCH ×3 (01:48→12:36)
[2018-01-31] MEDS: FUROSEMIDE 40 MG TABLET PO SCH ×2 (06:13→14:43)
[2018-01-31] MEDS: PANTOPRAZOLE 40 MG TABLET PO SCH (06:13)
[2018-01-31] MEDS: hydrALAZINE 25 MG TABLET PO SCH ×3 (06:13→21:45)
[2018-01-31 06:37] LABS: VBG PH 7.291 (7.31-7.41)
[2018-01-31 06:39] LABS: HGB - HEMOGLOBIN 10.5 g/dL (12.0-16.0); MEAN CORPUSCULAR HEMOGLOBIN 27.5 pg (27.0-31.0); MEAN CORPUSCULAR HGB CONC 32.1 g/dL (32.0-36.0); MEAN CORPUSCULAR VOLUME 85.8 fL (81.0-99.0); MEAN PLATELET VOLUME 9.4 fL (7.9-10.8); RED BLOOD COUNT 3.82 10^6/uL (4.20-5.40); RED CELL DISTRIBUTION WIDTH 18.7 % (12.0-15.0); WHITE BLOOD COUNT 8.2 x10^3/uL (4.8-10.8)
[2018-01-31 07:05] LABS: CALCIUM 11.6 mg/dL (8.5-10.3)
[2018-01-31] MEDS: ALLOPURINOL 100 MG TABLET PO SCH (08:23)
[2018-01-31] MEDS: POTASSIUM CHLORIDE 10 MEQ CAPSULE PO SCH (08:24)
[2018-01-31] MEDS: METOPROLOL SUCCINATE 50 MG TABLET PO SCH ×2 (08:24→21:46)
[2018-01-31] MEDS: levETIRAcetam 250 MG TABLET PO SCH ×2 (08:24→21:46)
[2018-01-31] MEDS: cefTRIAXone 1 GM in SODIUM CHLORIDE 0.9% MINIBAG 100 ML IV SCH (08:25)
[2018-01-31] MEDS: amLODIPine 5 MG TABLET PO SCH ×2 (08:25→21:45)
[2018-01-31] MEDS: SPIRONOLACTONE 25 MG TABLET PO SCH (08:25)
[2018-01-31] MEDS: CETIRIZINE 10 MG TABLET PO SCH (08:25)
[2018-01-31] MEDS: POLYETHYLENE GLYCOL 3350 17 GM PACKET PO SCH (08:26)
[2018-01-31] MEDS: NYSTATIN POWDER 15 GM TOP SCH ×2 (08:26→21:10)
[2018-01-31] MEDS: VENLAFAXINE ER 37.5 MG CAPSULE PO SCH (08:38)
[2018-01-31] MEDS: HYDROcod/ACETAM 5/325 MG TABLET PO PRN (08:38)
[2018-01-31] MEDS ORDERED: ASPIRIN EC 325 MG TABLET PO SCH (09:00)
[2018-01-31] MEDS ORDERED: OXYBUTYNIN CHLORIDE 20 MG PO SCH (09:00)
[2018-01-31] MEDS: ASPIRIN EC 81 MG TABLET PO SCH (12:36)
[2018-01-31] MEDS: GABAPENTIN 300 MG CAPSULE PO SCH ×2 (14:43→21:46)
--- NOTE | 2018-01-31 15:21 | PROVIDER PROGRESS NOTE ---
Assessment/Plan - Problem List (1) Hypercalcemia Assessment/Plan: Etiology unclear. Continue iv fluids and diuretics to treat high Ca, and Calcitonin. Monitor labs daily. (2) HUE on CPAP Assessment/Plan: Pt using her device from home. (3) Fatigue Assessment/Plan: Possibly due to dehydration, UTI and high Ca level. Will promote OOB to chair tomorrow. PT after that. (4) History of congestive heart failure Assessment/Plan: Pt has a defibrillator, per her report. Fluid hydration must be gentle due to CHF and already has leg edema to thighs. Continue her cardiac meds. Will get Echo to recheck LVEF (it was LVH and hyperdynamic EF with a mid-cavity gradient, consistent with IHSS, 1 year ago). (5) UTI (urinary tract infection) Qualifiers: Urinary tract infection type: site unspecified Hematuria presence: without hematuria Qualified Code(s): N39.0 - Urinary tract infection, site not specified Assessment/Plan: Continue empiric antibiotics. Await cultures. (6) T2DM (type 2 diabetes mellitus) Assessment/Plan: Continue carb-controlled diet, ss Insulin and monitor glu. - Current Meds Current Meds: Current Medications Generic Name Dose Route Start Last Admin Trade Name Freq PRN Reason Stop Dose Admin Hydrocodone Bitart/Acetaminophen 1 tab 01/30/18 13:22 01/31/18 08:38 [place] 5/325 PO 1 tab Q6H PRN Administration pain Allopurinol 300 mg 01/31/18 09:00 01/31/18 08:23 Zyloprim PO 300 mg DAILY GABINO Administration Amlodipine Besylate 2.5 mg 01/30/18 21:00 01/31/18 08:25 Norvasc PO 2.5 mg BID GABINO Administration Aspirin 81 mg 01/31/18 13:00 01/31/18 12:36 Ecotrin PO 81 mg DAILY GABINO Administration Cetirizine HCl 10 mg 01/31/18 09:00 01/31/18 08:25 Zyrtec PO 10 mg DAILY GABINO Administration Clonidine HCl 1 patch 01/30/18 16:00 01/30/18 16:21 [id number] TOP 1 patch Q7D GABINO Administration Furosemide 40 mg 01/30/18 16:00 01/31/18 14:43 Lasix PO 40 mg BIDDIURETIC GABINO Administration Gabapentin 300 mg 01/30/18 15:00 01/31/18 14:43 Neurontin PO 300 mg 1400 GABINO Administration Gabapentin 600 mg 01/30/18 21:00 01/30/18 21:56 Neurontin PO 600 mg QPM GABINO Administration Glipizide 2.5 mg 01/31/18 09:00 01/31/18 08:25 Glucotrol Xl PO 2.5 mg DAILY GABINO Administration Hydralazine HCl 50 mg 01/30/18 14:00 01/31/18 14:43 Apresoline PO 50 mg TID GABINO Administration Potassium Chloride/Sodium Chloride 1,000 mls @ 200 mls/hr 01/30/18 14:00 08/20 12:36 Normal Saline 0.9% W/20 Meq Kcl IV 200 mls/hr .Q5H GABINO Administration Ceftriaxone Sodium 1 gm/ 100 mls @ 200 mls/hr 01/31/18 09:00 01/31/18 08:55 Sodium Chloride IV Infused DAILY GABINO Infusion Levetiracetam 500 mg 01/30/18 21:00 01/31/18 08:24 Keppra PO 500 mg BID GABINO Administration Metoprolol Succinate 100 mg 01/30/18 21:00 01/31/18 08:24 Toprol Xl PO 100 mg BID GABINO Administration Nystatin 1 applic 01/30/18 21:00 01/31/18 08:26 Nystop TOP 1 applic BID GABINO Administration Ondansetron HCl 4 mg 01/30/18 14:35 01/30/18 21:03 Zofran Odt TL 4 mg Q4H PRN Administration Nausea / Vomiting Pantoprazole Sodium 40 mg 01/31/18 07:00 01/31/18 06:13 Protonix PO 40 mg QDAC GABINO Administration Oxybutynin Chloride 1 each 01/30/18 21:00 01/30/18 21:58 [Ditropan Xl] 20 Mg PO Not Given QPM GABINO Polyethylene Glycol 17 gm 01/31/18 09:00 01/31/18 08:26 Miralax PO 17 gm DAILY GABINO Administration Potassium Chloride 10 meq 01/31/18 09:00 01/31/18 08:24 Micro-K PO 10 meq DAILY GABINO Administration Sodium Chloride 10 ml 01/30/18 17:00 01/31/18 08:27 Normal Saline Flush 0.9% IVP Not Given 0100,0900,1700 GABINO Spironolactone 25 mg 01/30/18 15:00 01/31/18 08:25 Aldactone PO 25 mg DAILY GABINO Administration Venlafaxine HCl 37.5 mg 01/31/18 09:00 01/31/18 08:38 Effexor Er PO 37.5 mg DAILY GABINO Administration - Lab Result Fish Bone Diagrams: 01/31/18 06:05 01/31/18 06:05 - Additional Planning My Orders: My Active Orders 01/31/18 13:00 Aspirin EC [Ecotrin] 81 mg PO DAILY Subjective - Subjective Patient Reports: Feeling Better, Other (Very fatigued.) Objective Vital Signs: Vital Signs - 24 hr 01/30/18 01/30/18 01/31/18 15:58 20:05 00:00 Temperature 36.6 C 36.8 C 36.7 C Heart Rate [ 61 63 46 L Radial] Respiratory 18 18 18 Rate Blood Pressure 121/61 122/59 L 131/61 H [Left Radial artery] O2 Saturation 93 94 97 01/31/18 01/31/18 01/31/18 06:00 08:00 12:56 Temperature 36.7 C 36.6 C 36.6 C Heart Rate [ 61 60 59 L Radial] Respiratory 16 18 18 Rate Blood Pressure 102/51 L 117/56 L 120/59 L [Left Radial artery] O2 Saturation 98 92 94 Oxygen O2 Source Room air I&O (Last 24 Hrs): Intake and Output Totals x24h 01/29/18 01/30/18 01/31/18 23:59 23:59 23:59 Intake Total 3400 4096.667 Output Total 350 900 Balance 3050 3196.667 General: Alert, Other (Lethargic) HEENT: Other (Dry oral mucosa.) Neck: Supple, No JVD Neuro: Non Focal Cardiovascular: No murmurs Respiratory: No respiratory distress, Breath sounds nml Abdomen: Soft Extremities: No edema - Results Results: Laboratory Results WBC 8.2 x10^3/uL (4.8-10.8) 01/31/18 06:05 RBC 3.82 10^6/uL (4.20-5.40) L 01/31/18 06:05 Hgb 10.5 g/dL (12.0-16.0) L 01/31/18 06:05 Hct 32.7 % (37.0-47.0) L 01/31/18 06:05 MCV 85.8 fL (81.0-99.0) 01/31/18 06:05 MCH 27.5 pg (27.0-31.0) 01/31/18 06:05 MCHC 32.1 g/dL (32.0-36.0) 01/31/18 06:05 RDW 18.7 % (12.0-15.0) H 01/31/18 06:05 Plt Count 111 10^3/uL (130-450) L 01/31/18 06:05 MPV 9.4 fL (7.9-10.8) 01/31/18 06:05 Neut # (Auto) 7.6 10^3/uL (1.5-6.6) H 01/30/18 11:11 Lymph # (Auto) 1.6 10^3/uL (1.5-3.5) 01/30/18 11:11 [place] # (Auto) 0.6 10^3/uL (0.0-1.0) 01/30/18 11:11 Eos # (Auto) 0.2 10^3/uL (0.0-0.7) 01/30/18 11:11 Baso # (Auto) 0.0 10^3/uL (0.0-0.1) 01/30/18 11:11 Absolute Nucleated RBC 0.00 x10^3/uL 01/30/18 11:11 Nucleated RBC % 0.0 /100WBC 01/30/18 11:11 VBG pH 7.291 (7.31-7.41) L 01/31/18 06:25 Ionized Calcium 1.65 mmol/L (1.15-1.33) H* 01/31/18 06:25 Sodium 132 mmol/L (135-145) L 01/31/18 06:05 Potassium 5.4 mmol/L (3.5-5.0) H 01/31/18 06:05 Chloride 107 mmol/L (101-111) 01/31/18 06:05 Carbon Dioxide 19 mmol/L (21-32) L 01/31/18 06:05 Anion Gap 6.0 (6-13) 01/31/18 06:05 BUN 54 mg/dL (6-20) H 01/31/18 06:05 Creatinine 2.0 mg/dL (0.4-1.0) H 01/31/18 06:05 Estimated GFR (MDRD) 25 (>89) L 01/31/18 06:05 Glucose 102 mg/dL (70-100) H 01/31/18 06:05 Lactic Acid 1.2 mmol/L (0.5-2.2) 01/30/18 11:11 Calcium 11.6 mg/dL (8.5-10.3) H 01/31/18 06:05 Ionized Calcium NO 01/30/18 12:08 Phosphorus 3.8 mg/dL (2.5-4.6) 01/30/18 12:08 Magnesium 2.2 mg/dL (1.7-2.8) 01/30/18 12:08 Total Bilirubin 0.7 mg/dL (0.2-1.0) 01/30/18 12:08 AST 33 IU/L (10-42) 01/30/18 12:08 ALT 21 IU/L (10-60) 01/30/18 12:08 Alkaline Phosphatase 40 IU/L (42-121) L 01/30/18 12:08 Troponin I 0.07 ng/mL (<0.49) 01/30/18 11:11 Total Protein 6.9 g/dL (6.7-8.2) 01/30/18 12:08 Albumin 3.5 g/dL (3.2-5.5) 01/30/18 12:08 Globulin 3.4 g/dL (2.1-4.2) 01/30/18 12:08 Albumin/Globulin Ratio 1.0 (1.0-2.2) 01/30/18 12:08 PTH Intact 10 pg/mL (12-88) L 01/30/18 12:08 Urine Color YELLOW 01/30/18 11:37 Urine Clarity CLOUDY (CLEAR) 01/30/18 11:37 Urine pH 5.5 PH (5.0-7.5) 01/30/18 11:37 Ur Specific [place] 1.015 (1.002-1.030) 01/30/18 11:37 Urine Protein 30 mg/dL (NEGATIVE) H 01/30/18 11:37 Urine Glucose (UA) NEGATIVE mg/dL (NEGATIVE) 01/30/18 11:37 Urine Ketones TRACE mg/dL (NEGATIVE) 01/30/18 11:37 Urine Occult Blood TRACE-INTA (NEGATIVE) 01/30/18 11:37 Urine Nitrite POSITIVE (NEGATIVE) H 01/30/18 11:37 Urine Bilirubin NEGATIVE (NEGATIVE) 01/30/18 11:37 Urine Urobilinogen 0.2 (NORMAL) E.U./dL (NORMAL) 01/30/18 11:37 Ur Leukocyte Esterase LARGE (NEGATIVE) H 01/30/18 11:37 Urine RBC 0-5 /HPF (0-5) 01/30/18 11:37 Urine WBC >25 /HPF (0-5) H 01/30/18 11:37 Ur Squamous Epith Cells NONE SEEN (<= Few) 01/30/18 11:37 Amorphous Sediment Few /LPF 01/30/18 11:37 Urine Bacteria Many /HPF (None Seen) H 01/30/18 11:37 Ur Microscopic Review INDICATED 01/30/18 11:37 Urine Culture Comments INDICATED 01/30/18 11:37 - Procedures Procedures: Procedures INSERTION OF INT FIX INTO L PATELLA, OPEN APPROACH (01/20/17)
[2018-01-31] MEDS ORDERED: NS W/20 MEQ KCL 1,000 ML IV SCH (16:17)
[2018-01-31] MEDS: OXYBUTYNIN CHLORIDE 20 MG PO SCH (21:47)
[2018-01-31] MEDS: SODIUM CHLORIDE 0.9% 1,000 ML IV SCH (21:47)
[2018-02-01] MEDS: SODIUM CHLORIDE FLUSH 0.9% 10 ML SYRINGE IVP SCH ×3 (05:39→16:01)
[2018-02-01 06:36] LABS: HGB - HEMOGLOBIN 9.6 g/dL (12.0-16.0); MEAN CORPUSCULAR HEMOGLOBIN 27.1 pg (27.0-31.0); MEAN CORPUSCULAR HGB CONC 31.1 g/dL (32.0-36.0); MEAN CORPUSCULAR VOLUME 86.9 fL (81.0-99.0); MEAN PLATELET VOLUME 9.8 fL (7.9-10.8); RED BLOOD COUNT 3.54 10^6/uL (4.20-5.40); RED CELL DISTRIBUTION WIDTH 18.8 % (12.0-15.0); VBG PH 7.308 (7.31-7.41); WHITE BLOOD COUNT 8.6 x10^3/uL (4.8-10.8)
[2018-02-01] MEDS: SODIUM CHLORIDE 0.9% 1,000 ML IV SCH ×2 (06:37→09:46)
[2018-02-01 06:51] LABS: CALCIUM 10.6 mg/dL (8.5-10.3); CREATININE 1.5 mg/dL (0.4-1.0)
[2018-02-01] MEDS: FUROSEMIDE 40 MG TABLET PO SCH ×2 (06:53→13:28)
[2018-02-01] MEDS: PANTOPRAZOLE 40 MG TABLET PO SCH (06:53)
[2018-02-01] MEDS: hydrALAZINE 25 MG TABLET PO SCH ×3 (06:59→22:39)
[2018-02-01] MEDS: levETIRAcetam 250 MG TABLET PO SCH ×2 (08:54→22:40)
[2018-02-01] MEDS: ALLOPURINOL 100 MG TABLET PO SCH (08:54)
[2018-02-01] MEDS: SPIRONOLACTONE 25 MG TABLET PO SCH (08:54)
[2018-02-01] MEDS: POTASSIUM CHLORIDE 10 MEQ CAPSULE PO SCH (08:54)
[2018-02-01] MEDS: VENLAFAXINE ER 37.5 MG CAPSULE PO SCH (08:54)
[2018-02-01] MEDS: NYSTATIN POWDER 15 GM TOP SCH ×2 (08:55→22:43)
[2018-02-01] MEDS: CETIRIZINE 10 MG TABLET PO SCH (08:55)
[2018-02-01] MEDS: cefTRIAXone 1 GM in SODIUM CHLORIDE 0.9% MINIBAG 100 ML IV SCH (08:55)
[2018-02-01] MEDS: ASPIRIN EC 81 MG TABLET PO SCH (08:55)
[2018-02-01] MEDS: amLODIPine 5 MG TABLET PO SCH (08:55)
[2018-02-01] MEDS: METOPROLOL SUCCINATE 50 MG TABLET PO SCH ×2 (08:55→22:42)
[2018-02-01] MEDS: POLYETHYLENE GLYCOL 3350 17 GM PACKET PO SCH (08:56)
--- NOTE | 2018-02-01 09:01 | PROVIDER PROGRESS NOTE ---
Assessment/Plan - Problem List (1) Hypercalcemia Assessment/Plan: Improved Ca level with NS hydration and Lasix diuresis. Will decrease iv NS from 125/hr to 60 cc/hr. Monitor Ca daily. Poss DCh tomorrow. (2) HUE on CPAP Assessment/Plan: Pt using her home CPAP device here. (3) Fatigue Assessment/Plan: Will decrease iv rate, stop K and Spironolactone. OOB to chair and PT eval planned for today. (4) History of congestive heart failure Assessment/Plan: Echo shows a hyperdynamic LVEF of 75%. She also has a mid-LV gradient of 49 mmHg mean, 91 mmHg peak. This is similar to having IHSS and is more like a hypertrophic, hyperdynamic cardiomyopathy. She therefore needs to avoid dehydration, which will decrease her LV cavity size and she will have more inra-cavity obstruction to cardiac output. Also, afterload reducers are not beneficial and may be harmful, because they increase inotropy and also increase the intr-cavity gradient. Will stop Lasix and re-check her Ca off diuretics. (5) UTI (urinary tract infection) Qualifiers: Urinary tract infection type: site unspecified Hematuria presence: without hematuria Qualified Code(s): N39.0 - Urinary tract infection, site not specified Assessment/Plan: E coli growing in urine culture. No sensitivities yet, but a cephalosporin should be appropriate coverage. (6) T2DM (type 2 diabetes mellitus) Assessment/Plan: Continue DM diet, ss Insulin and glu checks achs. (7) CKD stage 4 due to type 2 diabetes mellitus Assessment/Plan: Improving creat with the hydration she needs for hypercalcemia treatment. Continue to monitor daily BMP. (8) Hyperkalemia Assessment/Plan: Will stop po K replacement (which was continued from home meds) and stop Spironolactone (which was started here for diuresis as well as "history of CHF". If her Echo shows LVEF <35%, Spironolactone may be resatarted in the future. - Current Meds Current Meds: Current Medications Generic Name Dose Route Start Last Admin Trade Name Freq PRN Reason Stop Dose Admin Hydrocodone Bitart/Acetaminophen 1 tab 01/30/18 13:22 01/31/18 08:38 [place] 5/325 PO 1 tab Q6H PRN Administration pain Allopurinol 300 mg 01/31/18 09:00 02/01/18 08:54 Zyloprim PO 300 mg DAILY GABINO Administration Amlodipine Besylate 2.5 mg 01/30/18 21:00 02/01/18 08:55 Norvasc PO 2.5 mg BID GABINO Administration Aspirin 81 mg 01/31/18 13:00 02/01/18 08:55 Ecotrin PO 81 mg DAILY GABINO Administration Cetirizine HCl 10 mg 01/31/18 09:00 02/01/18 08:55 Zyrtec PO 10 mg DAILY GABINO Administration Clonidine HCl 1 patch 01/30/18 16:00 01/30/18 16:21 Odqukpcz-[id number]-6 TOP 1 patch Q7D GABINO Administration Furosemide 40 mg 01/30/18 16:00 02/01/18 06:53 Lasix PO 40 mg BIDDIURETIC GABINO Administration Gabapentin 300 mg 01/30/18 15:00 01/31/18 14:43 Neurontin PO 300 mg 1400 GABINO Administration Gabapentin 600 mg 01/30/18 21:00 01/31/18 21:46 Neurontin PO 600 mg QPM GABINO Administration Glipizide 2.5 mg 01/31/18 09:00 02/01/18 08:54 Glucotrol Xl PO 2.5 mg DAILY GABINO Administration Hydralazine HCl 50 mg 01/30/18 14:00 02/01/18 06:59 Apresoline PO Not Given TID GABINO Ceftriaxone Sodium 1 gm/ 100 mls @ 200 mls/hr 01/31/18 09:00 02/01/18 08:55 Sodium Chloride IV 200 mls/hr DAILY GABINO Administration Levetiracetam 500 mg 01/30/18 21:00 02/01/18 08:54 Keppra PO 500 mg BID GABINO Administration Metoprolol Succinate 100 mg 01/30/18 21:00 02/01/18 08:55 Toprol Xl PO 100 mg BID GABINO Administration Nystatin 1 applic 01/30/18 21:00 02/01/18 08:55 Nystop TOP 1 applic BID GABINO Administration Ondansetron HCl 4 mg 01/30/18 14:35 01/30/18 21:03 Zofran Odt TL 4 mg Q4H PRN Administration Nausea / Vomiting Pantoprazole Sodium 40 mg 01/31/18 07:00 02/01/18 06:53 Protonix PO 40 mg QDAC GABINO Administration Oxybutynin Chloride 1 each 01/30/18 21:00 01/31/18 21:47 [Ditropan Xl] 20 Mg PO Not Given QPM GABINO Polyethylene Glycol 17 gm 01/31/18 09:00 02/01/18 08:56 Miralax PO 17 gm DAILY GABINO Administration Sodium Chloride 10 ml 01/30/18 17:00 02/01/18 08:58 Normal Saline Flush 0.9% IVP Not Given 0100,0900,1700 GABINO Venlafaxine HCl 37.5 mg 01/31/18 09:00 02/01/18 08:54 Effexor Er PO 37.5 mg DAILY GABINO Administration - Lab Result Fish Bone Diagrams: 02/01/18 06:16 02/01/18 06:16 - Additional Planning My Orders: My Active Orders 01/31/18 13:00 Aspirin EC [Ecotrin] 81 mg PO DAILY 01/31/18 16:17 Echo Transthoracic Complete [ECHO] Routine 02/01/18 08:58 Sodium Chloride 0.9% [Normal Saline 0.9%] 1,000 ml IV 40 mls/hr Subjective - Subjective Patient Reports: Feeling Better, Resting Comfortably Objective Vital Signs: Vital Signs - 24 hr 01/31/18 01/31/18 01/31/18 12:56 15:48 20:51 Temperature 36.6 C 36.4 C L 36.7 C Heart Rate [ 59 L 60 60 Radial] Respiratory 18 18 18 Rate Blood Pressure 120/59 L 122/58 L 130/60 [Left Radial artery] O2 Saturation 94 90 L 94 02/01/18 02/01/18 02/01/18 00:00 01:00 04:47 Temperature 36.7 C 37.1 C Heart Rate [ 60 59 L Radial] Respiratory 18 16 Rate Blood Pressure 101/49 L 101/51 L [Left Radial artery] O2 Saturation 90 L 93 89 L 02/01/18 02/01/18 06:50 08:00 Temperature 36.6 C Heart Rate [ 59 L Radial] Respiratory 20 Rate Blood Pressure 110/55 L [Left Radial artery] O2 Saturation 94 96 Oxygen O2 Source Nasal cannula I&O (Last 24 Hrs): Intake and Output Totals x24h 01/30/18 01/31/18 02/01/18 23:59 23:59 23:59 Intake Total 3400 6105.417 1000 Output Total 350 1200 1250 Balance 3050 4905.417 -250 General: Alert, Oriented x3 HEENT: Mucous membr. moist/pink Neck: Supple, No JVD Neuro: Non Focal Cardiovascular: Regular rate, No murmurs Respiratory: No respiratory distress, Breath sounds nml Abdomen: Soft Extremities: No edema - Results Results: Laboratory Results WBC 8.6 x10^3/uL (4.8-10.8) 02/01/18 06:16 RBC 3.54 10^6/uL (4.20-5.40) L 02/01/18 06:16 Hgb 9.6 g/dL (12.0-16.0) L 02/01/18 06:16 Hct 30.8 % (37.0-47.0) L 02/01/18 06:16 MCV 86.9 fL (81.0-99.0) 02/01/18 06:16 MCH 27.1 pg (27.0-31.0) 02/01/18 06:16 MCHC 31.1 g/dL (32.0-36.0) L 02/01/18 06:16 RDW 18.8 % (12.0-15.0) H 02/01/18 06:16 Plt Count 109 10^3/uL (130-450) L 02/01/18 06:16 MPV 9.8 fL (7.9-10.8) 02/01/18 06:16 Neut # (Auto) 7.6 10^3/uL (1.5-6.6) H 01/30/18 11:11 Lymph # (Auto) 1.6 10^3/uL (1.5-3.5) 01/30/18 11:11 [place] # (Auto) 0.6 10^3/uL (0.0-1.0) 01/30/18 11:11 Eos # (Auto) 0.2 10^3/uL (0.0-0.7) 01/30/18 11:11 Baso # (Auto) 0.0 10^3/uL (0.0-0.1) 01/30/18 11:11 Absolute Nucleated RBC 0.00 x10^3/uL 01/30/18 11:11 Nucleated RBC % 0.0 /100WBC 01/30/18 11:11 VBG pH 7.308 (7.31-7.41) L 02/01/18 06:16 Ionized Calcium 1.49 mmol/L (1.15-1.33) H 02/01/18 06:16 Sodium 139 mmol/L (135-145) 02/01/18 06:16 Potassium 5.6 mmol/L (3.5-5.0) H 02/01/18 06:16 Chloride 115 mmol/L (101-111) H 02/01/18 06:16 Carbon Dioxide 21 mmol/L (21-32) 02/01/18 06:16 Anion Gap 3.0 (6-13) L 02/01/18 06:16 BUN 43 mg/dL (6-20) H 02/01/18 06:16 Creatinine 1.5 mg/dL (0.4-1.0) H 02/01/18 06:16 Estimated GFR (MDRD) 34 (>89) L 02/01/18 06:16 Glucose 109 mg/dL (70-100) H 02/01/18 06:16 Lactic Acid 1.2 mmol/L (0.5-2.2) 01/30/18 11:11 Calcium 10.6 mg/dL (8.5-10.3) H 02/01/18 06:16 Ionized Calcium NO 01/30/18 12:08 Phosphorus 3.8 mg/dL (2.5-4.6) 01/30/18 12:08 Magnesium 2.2 mg/dL (1.7-2.8) 01/30/18 12:08 Total Bilirubin 0.7 mg/dL (0.2-1.0) 01/30/18 12:08 AST 33 IU/L (10-42) 01/30/18 12:08 ALT 21 IU/L (10-60) 01/30/18 12:08 Alkaline Phosphatase 40 IU/L (42-121) L 01/30/18 12:08 Troponin I 0.07 ng/mL (<0.49) 01/30/18 11:11 Total Protein 6.9 g/dL (6.7-8.2) 01/30/18 12:08 Albumin 3.5 g/dL (3.2-5.5) 01/30/18 12:08 Globulin 3.4 g/dL (2.1-4.2) 01/30/18 12:08 Albumin/Globulin Ratio 1.0 (1.0-2.2) 01/30/18 12:08 PTH Intact 10 pg/mL (12-88) L 01/30/18 12:08 Urine Color YELLOW 01/30/18 11:37 Urine Clarity CLOUDY (CLEAR) 01/30/18 11:37 Urine pH 5.5 PH (5.0-7.5) 01/30/18 11:37 Ur Specific [place] 1.015 (1.002-1.030) 01/30/18 11:37 Urine Protein 30 mg/dL (NEGATIVE) H 01/30/18 11:37 Urine Glucose (UA) NEGATIVE mg/dL (NEGATIVE) 01/30/18 11:37 Urine Ketones TRACE mg/dL (NEGATIVE) 01/30/18 11:37 Urine Occult Blood TRACE-INTA (NEGATIVE) 01/30/18 11:37 Urine Nitrite POSITIVE (NEGATIVE) H 01/30/18 11:37 Urine Bilirubin NEGATIVE (NEGATIVE) 01/30/18 11:37 Urine Urobilinogen 0.2 (NORMAL) E.U./dL (NORMAL) 01/30/18 11:37 Ur Leukocyte Esterase LARGE (NEGATIVE) H 01/30/18 11:37 Urine RBC 0-5 /HPF (0-5) 01/30/18 11:37 Urine WBC >25 /HPF (0-5) H 01/30/18 11:37 Ur Squamous Epith Cells NONE SEEN (<= Few) 01/30/18 11:37 Amorphous Sediment Few /LPF 01/30/18 11:37 Urine Bacteria Many /HPF (None Seen) H 01/30/18 11:37 Ur Microscopic Review INDICATED 01/30/18 11:37 Urine Culture Comments INDICATED 01/30/18 11:37 - Procedures Procedures: Procedures INSERTION OF INT FIX INTO L PATELLA, OPEN APPROACH (01/20/17) ABX Reporting Has patient been on IV antibiotics over the past 48 hours?: Yes
[2018-02-01] MEDS: HYDROcod/ACETAM 5/325 MG TABLET PO PRN (13:27)
[2018-02-01] MEDS: GABAPENTIN 300 MG CAPSULE PO SCH ×2 (13:28→22:38)
[2018-02-01] MEDS: OXYBUTYNIN CHLORIDE 20 MG PO SCH (22:43)
[2018-02-02] MEDS: SODIUM CHLORIDE FLUSH 0.9% 10 ML SYRINGE IVP SCH (01:30)
[2018-02-02] MEDS: SODIUM CHLORIDE 0.9% 1,000 ML IV SCH (04:57)
[2018-02-02] MEDS: PANTOPRAZOLE 40 MG TABLET PO SCH (06:06)
[2018-02-02 06:08] LABS: VBG PH 7.326 (7.31-7.41)
[2018-02-02 06:14] LABS: HGB - HEMOGLOBIN 9.4 g/dL (12.0-16.0); MEAN CORPUSCULAR HEMOGLOBIN 27.6 pg (27.0-31.0); MEAN CORPUSCULAR HGB CONC 31.6 g/dL (32.0-36.0); MEAN CORPUSCULAR VOLUME 87.2 fL (81.0-99.0); MEAN PLATELET VOLUME 9.1 fL (7.9-10.8); RED BLOOD COUNT 3.42 10^6/uL (4.20-5.40); RED CELL DISTRIBUTION WIDTH 19.4 % (12.0-15.0); WHITE BLOOD COUNT 8.4 x10^3/uL (4.8-10.8)
[2018-02-02 06:19] LABS: CALCIUM 9.8 mg/dL (8.5-10.3); CREATININE 1.5 mg/dL (0.4-1.0)
[2018-02-02] MEDS: POLYETHYLENE GLYCOL 3350 17 GM PACKET PO SCH (08:29)
[2018-02-02] MEDS: VENLAFAXINE ER 37.5 MG CAPSULE PO SCH (08:30)
[2018-02-02] MEDS: ALLOPURINOL 100 MG TABLET PO SCH (08:31)
[2018-02-02] MEDS: METOPROLOL SUCCINATE 50 MG TABLET PO SCH (08:31)
[2018-02-02] MEDS: CETIRIZINE 10 MG TABLET PO SCH (08:32)
[2018-02-02] MEDS: ASPIRIN EC 81 MG TABLET PO SCH (08:32)
[2018-02-02] MEDS: levETIRAcetam 250 MG TABLET PO SCH (08:33)
[2018-02-02] MEDS: hydrALAZINE 25 MG TABLET PO SCH (08:33)
[2018-02-02] MEDS: cefTRIAXone 1 GM in SODIUM CHLORIDE 0.9% MINIBAG 100 ML IV SCH (08:34)
[2018-02-02] MEDS: NYSTATIN POWDER 15 GM TOP SCH (08:34)
[2018-02-02] MEDS ORDERED: SENNA 8.6 MG TABLET PO SCH (09:00)
[2018-02-02] MEDS ORDERED: DOCUSATE SODIUM 250 MG CAPSULE PO SCH (09:00)
--- NOTE | 2018-02-02 11:10 | Discharge Plan ---
Discharge Plan for SNF / [facility] - DC Plan and Transition Orders Disposition: 03 SNF DC/Xfer Condition: Fair SNF Transition Orders: Admit to: [facility] under the care of Dr Curran Discharge Diagnosis: Hypercalcemia Medicare Certification: I certify that [facility] alf care is medically necessary on a continuing basis for any of the conditions for which she/he is receiving care during hospitalization. Notify PCP of admission and forward orders to primary provider for signature. Weight on admission and weekly. Call PCP immediately if weight increases by 5 pounds or if patient develops dyspnea, chest pain/tightness or edema. House Bowel Program: yes If no BM after 2 days, nurse may give M.O.M. 30ml PO PRN and /or ducolax Supp 1 GA and /or ANIBAL 250mg P.O., and/or senna 1-2 tabs PO. On day 3 nurse may give repeat above order until residents constipation is resolved. Immunizations: Annual Influenza Vaccine: yes. (between Apr 03 and October 31.) Unless allergy or already given Two-Step PPD: yes per [facility] [phone] or appropriate documentation of approved exceptions Oxygen Orders: 2l/m via mt for SOB Lab Tests or X-Rays Orders: Check calcium level in 2 weeks Orthopedic Orders: none. Medications: PLEASE REFER TO THE DISCHARGE MEDICATION LIST. Insulin Orders? no Diagnosis: Diabetes Initiate hypo and hyperglycemia protocols for BG <70 and BG >375. May check BG prn for signs/symptoms of dysglycemia. Allergies and Adverse Reactions: Allergies Allergy/AdvReac Type Severity Reaction Status Date / Time hydromorphone [From Dilaudid] Allergy Unknown Verified 12/21/17 11:32 codeine [Codeine] AdvReac Severe Hallucinati Verified 01/20/17 02:43 ons diphenhydramine citrate * AdvReac Intermediate unknown Verified 01/20/17 02:43 [From Excedrin PM] ibuprofen [From Advil] AdvReac Intermediate unknown Verified 01/20/17 02:43 naproxen sodium * AdvReac Intermediate unknown Verified 01/20/17 02:43 [From Aleve] zolpidem tartrate * AdvReac Intermediate Hives Verified 01/20/17 02:43 [From Ambien] - Diet Type: No added salt Texture: Regular Liquids: Thin May have monthly special meal: Yes
--- NOTE | 2018-02-02 11:23 | DISCHARGE SUMMARY ---
Discharge Summary Admit Date: 01/30/18 Discharge Date: 02/02/18 Discharging Provider: Sonia Mustafa DO Primary Care Provider: Manuel Jin MD Code Status: Attempt Resuscitation Condition at Discharge: Fair Discharge Disposition: SNF DC/Xfer Discharge Facility Name: [facility] - DIAGNOSES Admission Diagnoses: 1. Hypercalcemia 2. History of congestive heart failure 3. Hypertension 4. Type 2 diabetes mellitus 5. Urinary tract infection 6. History of gout 7. Allergic rhinitis 8. COPD Discharge Diagnoses with Status of Each Condition: 1. Hypercalcemia- Corrected, unsure of etiology. PTH was low and we are still awaiting results of PTHRP. I will asked the patient to follow-up with her primary care physician and to recheck her calcium levels in 2 weeks. 2. History of congestive heart failure- We continued the patient on her home diuretics will we flushed out her system. We continued metoprolol. The patient was able to be diuresed without any significant difficulty. 3. Hypertension- The patient's blood pressure has been well managed while she has been inpatient. Continue current medication dosing at home. 4. Type 2 diabetes mellitus- The patient's blood sugars have been well managed while she is been inpatient. Continue present medication regimen at home. 5. Urinary tract infection - Isolated to be Klebsiella pneumonia, we will discharge the patient home on Bactrim. 6. History of gout- No exacerbations while the patient was inpatient, continue her on allopurinol at home. 7. Allergic rhinitis- Well-managed with Zyrtec daily, continue at home. 8. COPD- No evidence of exacerbation while inpatient, continue patient on home dosing of albuterol as needed. - HPI History of Present Illness: Mrs. Malka Dejesus is a very pleasant 72-year-old female with an extensive past medical history significant for renal insufficiency, CVA, diabetes mellitus, recurrent urinary tract infections, hypertension, COPD, gout, gastroesophageal reflux disease, congestive heart failure, and seizure disorder. She has been having increasing weakness over the last several days and this morning she was so weak that she decided to come to the emergency department. While here was found that she had a calcium level of 14.1 and a urinary tract infection. She is also hyponatremic. She will be admitted to medical surgical floor bed, placed on telemetry, and we will correct her electrolytes and treat her urinary tract infection. - HOSPITAL COURSE Hospital Course: Patient was admitted to the hospital and given calcitonin in the emergency department. By the time she came to the floor her calcium levels were at 13.7 and he continued to drop steadily with the use of IV fluids and diuretics. Today the patient's calcium level was within normal limits for the first time and she will be discharged home. - ALLERGIES Allergies/Adverse Reactions: Allergies Allergy/AdvReac Type Severity Reaction Status Date / Time hydromorphone [From Dilaudid] Allergy Unknown Verified 12/21/17 11:32 codeine [Codeine] AdvReac Severe Hallucinati Verified 01/20/17 02:43 ons diphenhydramine citrate * AdvReac Intermediate unknown Verified 01/20/17 02:43 [From Excedrin PM] ibuprofen [From Advil] AdvReac Intermediate unknown Verified 01/20/17 02:43 naproxen sodium * AdvReac Intermediate unknown Verified 01/20/17 02:43 [From Aleve] zolpidem tartrate * AdvReac Intermediate Hives Verified 01/20/17 02:43 [From Ambien] - MEDICATIONS Home Medications: Ambulatory Orders Medication Instructions Recorded Confirmed Amlodipine Besylate 5 mg PO BID 06/06/13 01/30/18 Cetirizine HCl [Zyrtec] 10 mg PO DAILY 06/06/13 01/30/18 Furosemide [Lasix] 80 mg PO DAILY 06/06/13 01/30/18 Gabapentin 300 mg PO 1400 06/06/13 01/30/18 Glipizide [Glipizide ER] 2.5 mg PO DAILY 06/06/13 01/30/18 Metoprolol Succinate 100 mg PO BID 06/06/13 01/30/18 hydrALAZINE [Apresoline] 75 mg PO TID 06/06/13 01/30/18 Allopurinol 300 mg ORAL DAILY 08/08/14 01/30/18 Albuterol Sulfate [Proair Hfa] 2 puffs INH Q4H PRN 02/01/16 01/30/18 Rosuvastatin Calcium [Crestor] 5 mg PO QPM 02/01/16 01/30/18 Venlafaxine HCl [Venlafaxine HCl 37.5 mg PO DAILY 02/01/16 01/30/18 ER] Pantoprazole [Protonix] 40 mg PO QDAC 01/16/17 01/30/18 Gabapentin [Neurontin] 600 mg PO QPM 01/19/17 01/30/18 cloNIDine 0.3 MG PATCH 1 each TOP Q7D 01/19/17 01/30/18 [[id number]] Aspirin [Aspirin EC] 325 mg PO DAILY 01/20/17 01/30/18 Hydrocodone/Acetaminophen 1 - 2 each PO Q6H PRN #20 tablet 12/21/17 01/30/18 [Hydrocodon-Acetaminophen 5-325] Potassium Chloride [Klor-Con 10] 10 meq PO DAILY 12/21/17 01/30/18 Levetiracetam [Keppra] 500 mg PO BID 01/30/18 01/30/18 Oxybutynin Chloride [Ditropan Xl] 20 mg PO DAILY 01/30/18 01/30/18 - PHYSICAL EXAM AT DISCHARGE General Appearance: positive: No acute distress, Alert Eyes Bilateral: positive: Normal inspection, PERRL, EOMI, No lid inflammation, Conjunctivae nml, No scleral icterus ENT: positive: ENT inspection nml, Pharynx nml, No signs of dehydration Neck: positive: Nml inspection, Thyroid nml, No JVD, Trachea midline. negative : Thyromegaly Respiratory: positive: Chest non-tender, No respiratory distress, Breath sounds nml Cardiovascular: positive: Regular rate & rhythm, No murmur, No gallop Peripheral Pulses: positive: 1+ Abdomen: positive: Non-tender, No organomegaly, Nml bowel sounds, No distention. negative: Guarding, Rebound Back: positive: Nml inspection. negative: CVA tenderness (R), CVA tenderness (L ) Skin: positive: Color nml, No rash, Warm, Dry. negative: Cyanosis Extremities: positive: Non-tender, Full ROM, Nml appearance Neurologic/Psychiatric: positive: Oriented x3, CN's nml (2-12), Motor nml, Sensation nml, Mood/affect nml - LABS Result Diagrams: 02/02/18 05:29 02/02/18 05:29 - FOLLOW UP Follow Up: Follow-up with Dr. Jin when you are discharged from [facility] - TIME SPENT Time Spent in Discharge (Minutes): 40
[2018-02-02] MEDS ORDERED: SULFAMETH/TRIMETH DS 800/160 MG TABLET PO SCH (12:00)
[2018-02-02 12:54] VITALS: BP 111/50
== END 2018-02-02 14:00 | DRG 641 ==
LOC: EDUNIT# → ED 10:48 → MS2 13:12
PROVIDERS: ADMIT Hospitalist; ATTEND Hospitalist
DX: E83.52 Hypercalcemia (principal); N12 Tubulo-interstitial nephritis, not specified as acute or chronic; N39.0 Urinary tract infection, site not specified; N28.9 Disorder of kidney and ureter, unspecified; R53.1 Weakness; I10 Essential (primary) hypertension; E11.9 Type 2 diabetes mellitus without complications; I49.3 Ventricular premature depolarization; G47.30 Sleep apnea, unspecified; R56.9 Unspecified convulsions; E78.5 Hyperlipidemia, unspecified; G89.29 Other chronic pain; M54.9 Dorsalgia, unspecified; Z95.0 Presence of cardiac pacemaker; E87.1 Hypo-osmolality and hyponatremia; Z87.440 Personal history of urinary (tract) infections; N18.4 Chronic kidney disease, stage 4 (severe); E11.22 Type 2 diabetes mellitus with diabetic chronic kidney disease; I11.0 Hypertensive heart disease with heart failure; I50.9 Heart failure, unspecified; B96.1 Klebsiella pneumoniae [K. pneumoniae] as the cause of diseases classified elsewhere; E86.0 Dehydration; E87.5 Hyperkalemia; M10.9 Gout, unspecified; J44.9 Chronic obstructive pulmonary disease, unspecified; K21.9 Gastro-esophageal reflux disease without esophagitis; G40.909 Epilepsy, unspecified, not intractable, without status epilepticus; G47.33 Obstructive sleep apnea (adult) (pediatric); E78.00 Pure hypercholesterolemia, unspecified; Z79.899 Other long term (current) drug therapy; Z79.84 Long term (current) use of oral hypoglycemic drugs; Z86.73 Personal history of transient ischemic attack (TIA), and cerebral infarction without residual deficits; Z95.810 Presence of automatic (implantable) cardiac defibrillator; Z79.82 Long term (current) use of aspirin
CPT/HCPCS: 36415; 51701; 80048; 80053; 81001; 81003; 82310; 82330; 83519; 83605; 83735; 83970; 84100; 84484; 85025; 85027; 87040; 87077; 87086; 87181; 87640; 93005; 93306; 96361; 96365; 96372; 99284

== ENCOUNTER 2018-02-02 14:07 | Outpatient (CLI) | payer MEDICARE, OTHER | END 2018-02-02 14:08 | LOC: EMS 14:07 | PROVIDERS: ATTEND Surgery | DX: R53.1 Weakness (principal); N39.0 Urinary tract infection, site not specified | CPT/HCPCS: A0425; A0428 ==

== ENCOUNTER 2018-06-14 13:03 | Outpatient (CLI) | payer MEDICARE, OTHER | END 2018-06-14 13:04 | disposition home or self-care (01) | LOC: SC 13:03 | PROVIDERS: ATTEND Nurse Practitioner Family | DX: G47.33 Obstructive sleep apnea (adult) (pediatric) (principal) | CPT/HCPCS: 99214; G0463; 99212 ==

== ENCOUNTER 2018-06-22 21:23 | Emergency (ER) | payer MEDICARE, OTHER ==
[2018-06-22 22:19] LABS: BASOPHILS % (AUTO) 0.4 %; EOSINOPHILS # (AUTO) 0.5 10^3/uL (0.0-0.7); EOSINOPHILS % (AUTO) 4.6 %; HGB - HEMOGLOBIN 10.9 g/dL (12.0-16.0); LYMPHOCYTES # (AUTO) 2.1 10^3/uL (1.5-3.5); LYMPHOCYTES % (AUTO) 20.6 %; MEAN CORPUSCULAR HEMOGLOBIN 25.6 pg (27.0-31.0); MEAN CORPUSCULAR VOLUME 82.7 fL (81.0-99.0); MEAN PLATELET VOLUME 8.1 fL (7.9-10.8); MONOCYTES # (AUTO) 0.8 10^3/uL (0.0-1.0); MONOCYTES % (AUTO) 7.7 %; NEUTROPHILS # (AUTO) 6.7 10^3/uL (1.5-6.6); NEUTROPHILS % (AUTO) 66.7 %; PLT - PLATELET COUNT 239 10^3/uL (130-450); RED BLOOD COUNT 4.23 10^6/uL (4.20-5.40); RED CELL DISTRIBUTION WIDTH 22.1 % (12.0-15.0); WHITE BLOOD COUNT 10.1 x10^3/uL (4.8-10.8)
[2018-06-22 22:31] LABS: PLATELET ESTIMATE, MANUAL NORMAL (130-450,000) (NORMAL); PLATELET MORPHOLOGY NORMAL APPEARANCE (NORMAL); RBC MORPHOLOGY (MULTIPLE) 2+ ANISOCYTOSIS (NORMAL)
[2018-06-22 22:32] LABS: ALBUMIN 3.2 g/dL (3.2-5.5); ALBUMIN/GLOBULIN RATIO 0.7 (1.0-2.2); BILIRUBIN,TOTAL 0.5 mg/dL (0.2-1.0); CALCIUM 9.2 mg/dL (8.5-10.3); CREATININE 2.6 mg/dL (0.4-1.0); TOTAL PROTEIN 7.5 g/dL (6.7-8.2)
--- NOTE | 2018-06-22 23:01 | ED Physician Documentation ---
History of Present Illness - Stated complaint Stated Complaint: SENT BY - Chief complaint Chief Complaint: General - History obtained from History obtained from: Patient, Family - History of Present Illness Timing: Yesterday - Additonal information Additional information: 73 y/o female with extensive medical history has been in to see her doctor and has had blood work done yesterday and she has been advised to come to the ED for elevated potassium. She has been taken off of her spironalactone one week ago and yesterday her potassium was 6.1. The patient knows that she feels her usual self she does not feel ill in any way she is not short of breath or fatigued she denies any fever or chills. Review of Systems Constitutional: denies: Fever Eyes: denies: Decreased vision Ears: denies: Ear pain Nose: denies: Rhinorrhea / runny nose, Congestion Throat: denies: Sore throat Cardiac: denies: Chest pain / pressure, Palpitations Respiratory: denies: Dyspnea, Cough GI: denies: Abdominal Pain, Nausea, Vomiting : denies: Dysuria, Frequency Skin: denies: Rash Musculoskeletal: reports: Extremity swelling (similar to always). 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 Cardiovascular: Pacemaker, AICD - Present Medications Home Medications: Ambulatory Orders Medication Instructions Recorded Confirmed Amlodipine Besylate 5 mg PO BID 06/06/13 01/30/18 Cetirizine HCl [Zyrtec] 10 mg PO DAILY 06/06/13 01/30/18 Furosemide [Lasix] 80 mg PO DAILY 06/06/13 01/30/18 Gabapentin 300 mg PO 1400 06/06/13 01/30/18 Glipizide [Glipizide ER] 2.5 mg PO DAILY 06/06/13 01/30/18 Metoprolol Succinate 100 mg PO BID 06/06/13 01/30/18 hydrALAZINE [Apresoline] 75 mg PO TID 06/06/13 01/30/18 Allopurinol 300 mg ORAL DAILY 08/08/14 01/30/18 Albuterol Sulfate [Proair Hfa 2 puffs INH Q4H PRN 02/01/16 01/30/18 Inhaler] Rosuvastatin Calcium [Crestor] 5 mg PO QPM 02/01/16 01/30/18 Venlafaxine HCl [Venlafaxine HCl 37.5 mg PO DAILY 02/01/16 01/30/18 ER] Pantoprazole [Protonix] 40 mg PO QDAC 01/16/17 01/30/18 Gabapentin [Neurontin] 600 mg PO QPM 01/19/17 01/30/18 cloNIDine 0.3 MG PATCH 1 each TOP Q7D 01/19/17 01/30/18 [[id number]-Amr-3] Aspirin [Aspirin EC] 325 mg PO DAILY 01/20/17 01/30/18 Hydrocodone/Acetaminophen 1 - 2 each PO Q6H PRN #20 tablet 12/21/17 01/30/18 [Hydrocodone-Acetamin 5-325 mg] Potassium Chloride [Klor-Con 10] 10 meq PO DAILY 12/21/17 01/30/18 Levetiracetam [Keppra] 500 mg PO BID 01/30/18 01/30/18 Oxybutynin Chloride [Ditropan Xl] 20 mg PO DAILY 01/30/18 01/30/18 Sulfamethox/Trimeth 800/160 1 tab PO BID #14 tablet 02/02/18 [Bactrim Ds] - Allergies Allergies/Adverse Reactions: Allergies Allergy/AdvReac Type Severity Reaction Status Date / Time hydromorphone [From Dilaudid] Allergy Unknown Verified 06/22/18 21:38 codeine [Codeine] AdvReac Severe Hallucinati Verified 06/22/18 21:38 ons diphenhydramine citrate * AdvReac Intermediate unknown Verified 06/22/18 21:38 [From Excedrin PM] ibuprofen [From Advil] AdvReac Intermediate unknown Verified 06/22/18 21:38 naproxen sodium * AdvReac Intermediate unknown Verified 06/22/18 21:38 [From Aleve] zolpidem tartrate * AdvReac Intermediate Hives Verified 06/22/18 21:38 [From Ambien] - Social History Does the pt smoke?: No Smoking Status: Never smoker Does the pt drink ETOH?: No Does the pt have substance abuse?: No - Immunizations Immunizations are current?: No Immunizations: TDAP >10years/unknown - POLST Patient has POLST: No POLST Status: Full Code PD ED PE NORMAL - Vitals Vital signs reviewed: Yes (hypertensive ) - General General: Alert and oriented X 3, No acute distress, Well developed/nourished - HEENT HEENT: Atraumatic, PERRL - Neck Neck: Supple, no meningeal sign, No bony TTP - Cardiac Cardiac: Other (irregularly irregular rate and rhythm with 2/6 holosystolic murmer at LSB .) - Respiratory Respiratory: No respiratory distress, Clear bilaterally - Abdomen Abdomen: Soft, Non tender - Back Back: No CVA TTP, No spinal TTP - Derm Derm: Normal color, Warm and dry, No rash - Extremities Extremities: No deformity, Other (There is pitting edema bilatearlly and worse on the right.) - Neuro Neuro: Alert and oriented X 3, telehealth coordinator 2-12 intact, No motor deficit, No sensory deficit, Normal speech Eye Opening: Spontaneous Motor: Obeys Commands Verbal: Oriented GCS Score: 15 - Psych Psych: Normal mood, Normal affect Results - Vitals Vitals: Vital Signs - 24 hr 06/22/18 06/22/18 06/22/18 21:34 22:36 23:00 Temperature 36.6 C Heart Rate 64 75 69 Respiratory 17 18 16 Rate Blood Pressure 121/89 H 123/78 133/109 H O2 Saturation 98 98 95 06/22/18 06/23/18 23:47 00:26 Temperature Heart Rate 68 78 Respiratory 16 20 Rate Blood Pressure 124/72 127/83 H O2 Saturation 95 95 Oxygen O2 Source [] increased to 95% on RA O2 Source Room air - EKG (time done) 4679 Rate: Rate (enter#) (65) Rhythm: Atrial fibrillation Intervals: RBBB QRS: LVH Ischemia: Normal ST segments, Q waves Compare to prior EKG: Changed from prior EKG (SPT 01-30-18 rhythm has changed from paced to sinus and the QRS morphology has changed as well. ) Computer interpretation: Disagree with computer (The computer reads afib and this is sinus ) - Labs Labs: Laboratory Tests 06/22/18 06/22/18 06/22/18 22:00 22:00 22:00 WBC 10.1 RBC 4.23 Hgb 10.9 L Hct 35.0 L MCV 82.7 MCH 25.6 L MCHC 31.0 L RDW 22.1 H Plt Count 239 MPV 8.1 Neut # (Auto) 6.7 H Lymph # (Auto) 2.1 [place] # (Auto) 0.8 Eos # (Auto) 0.5 Baso # (Auto) 0.0 Absolute Nucleated RBC 0.01 Nucleated RBC % 0.1 Manual Slide Review Indicated WBC Morphology NORMAL APPEARANCE Platelet Estimate NORMAL (130-450,000) Platelet Morphology NORMAL APPEARANCE RBC Morph Micro Appear 2+ ANISOCYTOSIS Sodium 126 L Potassium 5.2 H Chloride 101 Carbon Dioxide 18 L Anion Gap 7.0 BUN 69 H Creatinine 2.6 H Estimated GFR (MDRD) 18 L Glucose 88 Calcium 9.2 Total Bilirubin 0.5 AST 13 ALT 12 Alkaline Phosphatase 76 Troponin I < 0.04 Total Protein 7.5 Albumin 3.2 Globulin 4.3 H Albumin/Globulin Ratio 0.7 L Lipase 41 Procedures - IVC sono (time) 2245 Bedside IVC sono: IVC measures (cm) (1.58), Euvolemia PD MEDICAL DECISION MAKING - ED course Complexity details: reviewed results, re-evaluated patient, considered differential, d/w patient, d/w PMD (Osvaldo will relay details to Davin. ) ED course: 73-year-old female with multiple comorbidities was found to be hyperkalemic on routine blood work and this persisted her spironolactone has been discontinued and here today her potassium is at 5.2. I reviewed the patient's medications with her and she indicates that she has been off of the myocardial since January and she stopped the spironolactone 1 week ago. She is also prescribed potassium in the form of K-Dur 10 mEq/day. I have asked her to stop that as well. I did talk to the on-call physician for Dr. Jin and she will relay this info to him. Departure - Departure Disposition: 01 Home, Self Care Clinical Impression: Hyperkalemia Condition: Stable Instructions: ED Potassium Excess Follow-Up: Manuel Jin MD [Primary Care Provider] - Comments: Stop taking your potassium supplement (Klor-Con 10). Follow up with Dr. Jin. Discharge Date/Time: 06/23/18 00:40
[2018-06-23 00:27] VITALS: BP 127/83
== END 2018-06-23 00:40 | disposition home or self-care (01) ==
LOC: ED 21:23
DX: E87.5 Hyperkalemia (principal); E87.8 Other disorders of electrolyte and fluid balance, not elsewhere classified; I10 Essential (primary) hypertension; E11.9 Type 2 diabetes mellitus without complications; Z95.810 Presence of automatic (implantable) cardiac defibrillator
CPT/HCPCS: 36415; 80053; 83690; 84484; 85025; 93005; 99283; 99284

== ENCOUNTER 2018-07-13 08:34 | Outpatient (CLI) | payer MEDICARE, OTHER | END 2018-07-13 08:35 | disposition EMS.NT | LOC: EMS 08:34 | PROVIDERS: ATTEND Surgery | DX: Z03.89 Encounter for observation for other suspected diseases and conditions ruled out (principal) ==

== ENCOUNTER 2018-07-18 11:52 | Outpatient (CLI) | payer MEDICARE, OTHER | END 2018-07-18 23:59 | disposition critical access hospital (66) | LOC: EMS 11:52 | PROVIDERS: ATTEND Surgery | DX: M25.552 Pain in left hip (principal); W18.39XA Other fall on same level, initial encounter; Y93.01 Activity, walking, marching and hiking; Y92.009 Unspecified place in unspecified non-institutional (private) residence as the place of occurrence of the external cause | CPT/HCPCS: A0425; A0427 ==

== ENCOUNTER 2018-07-18 12:14 | Emergency (ER) | payer MEDICARE, OTHER ==
[2018-07-18] MEDS ORDERED: fentaNYL 100 MCG/2 ML VIAL IVP STA ×6 (12:31→19:50)
--- NOTE | 2018-07-18 12:34 | ED Physician Documentation ---
PD HPI LOWER EXT INJURY - Stated complaint Stated Complaint: GLF - Chief complaint Chief Complaint: Ext Problem - History obtained from History obtained from: Patient, Family (dae), EMS - History of Present Illness PD HPI LOW EXT INJURY LOCATION: Left, Hip Type of injury: Fall (This is a prince 73-year-old woman with history of stroke with right-sided deficits, diabetes, renal insufficiency, hypertension, COPD, congestive heart failure, and seizure disorder. She has chronic mobility issues. She uses a wheelchair but is able to transfer independently usually. She was in the hallway on the way to the bathroom and using the wheelchair as sort of a walker and her legs went out from under her and she hit the bathroom door and went down and hit the back of her head and left shoulder and left hip. She has severe left hip pain. She denies loss of consciousness or significant headache but she also has left shoulder and upper back pain.) Review of Systems Ten Systems: 10 systems reviewed and negative Constitutional: denies: Fever, Chills Cardiac: denies: Chest pain / pressure, Palpitations Respiratory: denies: Dyspnea, Cough GI: denies: Abdominal Pain, Nausea, Vomiting PD PAST MEDICAL HISTORY - Past Medical History Cardiovascular: Hypertension, High cholesterol, Murmur, Arrhythmia Respiratory: Asthma, CPAP use Neuro: CVA, Seizure disorder Endocrine/Autoimmune: Type 2 diabetes GI: GERD : Incontinence, Frequency, Other HEENT: None Psych: Depression, Anxiety Musculoskeletal: Osteoarthritis Derm: None - Past Surgical History Past Surgical History: Yes 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 Cardiovascular: Pacemaker, AICD - Present Medications Home Medications: Ambulatory Orders Medication Instructions Recorded Confirmed Amlodipine Besylate 5 mg PO BID 06/06/13 07/18/18 Cetirizine HCl [Zyrtec] 10 mg PO DAILY 06/06/13 07/18/18 Furosemide [Lasix] 80 mg PO DAILY 06/06/13 07/18/18 Gabapentin 300 mg PO 1400 06/06/13 07/18/18 Glipizide [Glipizide ER] 2.5 mg PO DAILY 06/06/13 07/18/18 Metoprolol Succinate 100 mg PO BID 06/06/13 07/18/18 hydrALAZINE [Apresoline] 75 mg PO TID 06/06/13 07/18/18 Allopurinol 300 mg ORAL DAILY 08/08/14 07/18/18 Albuterol Sulfate [Proair Hfa 2 puffs INH Q4H PRN 02/01/16 07/18/18 Inhaler] Rosuvastatin Calcium [Crestor] 5 mg PO QPM 02/01/16 07/18/18 Venlafaxine HCl [Venlafaxine HCl 37.5 mg PO DAILY 02/01/16 07/18/18 ER] Pantoprazole [Protonix] 40 mg PO QDAC 01/16/17 07/18/18 Gabapentin [Neurontin] 600 mg PO QPM 01/19/17 07/18/18 Aspirin [Aspirin EC] 325 mg PO DAILY 01/20/17 07/18/18 Hydrocodone/Acetaminophen 1 - 2 each PO Q6H PRN #20 tablet 12/21/17 07/18/18 [Hydrocodone-Acetamin 5-325 mg] Potassium Chloride [Klor-Con 10] 10 meq PO DAILY 12/21/17 07/18/18 Levetiracetam [Keppra] 500 mg PO BID 01/30/18 07/18/18 Oxybutynin Chloride [Ditropan Xl] 20 mg PO DAILY 01/30/18 07/18/18 - Allergies Allergies/Adverse Reactions: Allergies Allergy/AdvReac Type Severity Reaction Status Date / Time hydromorphone [From Dilaudid] Allergy Unknown Verified 07/18/18 12:23 codeine [Codeine] AdvReac Severe Hallucinati Verified 07/18/18 12:23 ons diphenhydramine citrate * AdvReac Intermediate unknown Verified 07/18/18 12:23 [From Excedrin PM] ibuprofen [From Advil] AdvReac Intermediate unknown Verified 07/18/18 12:23 naproxen sodium * AdvReac Intermediate unknown Verified 07/18/18 12:23 [From Aleve] zolpidem tartrate * AdvReac Intermediate Hives Verified 07/18/18 12:23 [From Ambien] - Social History Does the pt smoke?: No Smoking Status: Never smoker Does the pt drink ETOH?: No Does the pt have substance abuse?: No - Immunizations Immunizations are current?: No Immunizations: TDAP >10years/unknown - POLST Patient has POLST: No POLST Status: Full Code PD ED PE NORMAL - Vitals Vital signs reviewed: Yes - General General: Alert and oriented X 3, No acute distress - HEENT HEENT: PERRL, Other (Dry mucous membranes but she appears slightly fluid overloaded generally with peripheral anasarca) - Neck Neck: Supple, no meningeal sign, No bony TTP - Cardiac Cardiac: RRR, No murmur - Respiratory Respiratory: No respiratory distress, Clear bilaterally - Abdomen Abdomen: Normal bowel sounds, Soft, Non tender - Back Back: No CVA TTP, Other (She is tender over the upper thoracic spine, the lumbar spine is nontender.) - Extremities Extremities: Other (There is mild tenderness over the left clavicle and shoulder joints, not the humerus. She is able to raise it off the bed. She has severe tenderness of the left hip and the leg is shortened and slightly rotated.) - Neuro Neuro: Alert and oriented X 3, Normal speech - Psych Psych: Normal mood, Normal affect Results - Vitals Vitals: Vital Signs - 24 hr 07/18/18 07/18/18 12:10 16:27 Temperature 36.8 C Heart Rate 71 105 H Respiratory 15 14 Rate Blood Pressure 118/70 121/62 O2 Saturation 95 95 Oxygen O2 Source [] increased to 95% on RA O2 Source Room air - EKG (time done) 1241 Rate: Rate (enter#) (82) Rhythm: Other (Some sinus beats and some paced beats with underlying atrial fibrillation) Intervals: RBBB Ischemia: Non specific changes Computer interpretation: Agree with computer - Labs Labs: Laboratory Tests 07/18/18 07/18/18 07/18/18 12:50 12:50 12:50 WBC 6.4 RBC 3.75 L Hgb 9.8 L Hct 31.2 L MCV 83.2 MCH 26.2 L MCHC 31.5 L RDW 19.6 H Plt Count 209 MPV 8.2 Neut # (Auto) 3.7 Lymph # (Auto) 1.5 [place] # (Auto) 0.4 Eos # (Auto) 0.8 H Baso # (Auto) 0.0 Absolute Nucleated RBC 0.00 Nucleated RBC % 0.1 PT 12.8 H INR 1.1 APTT 26.2 Sodium 132 L Potassium 3.3 L Chloride 105 Carbon Dioxide 18 L Anion Gap 9.0 BUN 59 H Creatinine 2.4 H Estimated GFR (MDRD) 20 L Glucose 97 Calcium 8.2 L Total Bilirubin 0.4 AST 13 ALT 11 Alkaline Phosphatase 64 Total Creatine Kinase 39 CK-MB (CK-2) Troponin I Total Protein 6.1 L Albumin 2.4 L Globulin 3.7 Albumin/Globulin Ratio 0.6 L Lipase 26 Urine Color Urine Clarity Urine pH Ur Specific [place] Urine Protein Urine Glucose (UA) Urine Ketones Urine Occult Blood Urine Nitrite Urine Bilirubin Urine Urobilinogen Ur Leukocyte Esterase Urine RBC Urine WBC Ur Squamous Epith Cells Urine Bacteria Ur Microscopic Review Urine Culture Comments 07/18/18 07/18/18 12:50 18:00 WBC RBC Hgb Hct MCV MCH MCHC RDW Plt Count MPV Neut # (Auto) Lymph # (Auto) [place] # (Auto) Eos # (Auto) Baso # (Auto) Absolute Nucleated RBC Nucleated RBC % PT INR APTT Sodium Potassium Chloride Carbon Dioxide Anion Gap BUN Creatinine Estimated GFR (MDRD) Glucose Calcium Total Bilirubin AST ALT Alkaline Phosphatase Total Creatine Kinase CK-MB (CK-2) 4.0 Troponin I < 0.04 Total Protein Albumin Globulin Albumin/Globulin Ratio Lipase Urine Color LT. YELLOW Urine Clarity TURBID Urine pH 5.5 Ur Specific [place] 1.020 Urine Protein 100 H Urine Glucose (UA) NEGATIVE Urine Ketones NEGATIVE Urine Occult Blood SMALL H Urine Nitrite POSITIVE H Urine Bilirubin NEGATIVE Urine Urobilinogen 0.2 (NORMAL) Ur Leukocyte Esterase LARGE H Urine RBC TNTC H Urine WBC >25 H Ur Squamous Epith Cells FEW Squamous Urine Bacteria Many H Ur Microscopic Review INDICATED Urine Culture Comments INDICATED - Rads (name of study) CT Head Radiology: EMP read contemporaneously (NAD) CT Cspine Radiology: EMP read contemporaneously (Thyroid nodule, NAD) CT T spine Radiology: EMP read contemporaneously (No fracture. She has dilatation of the thoracic aorta and main pulmonary artery. Bilateral pulmonary nodules up to 0.7 cm. Concern for left hydroureter.) 1v chest Radiology: EMP read contemporaneously (NAD) L hip XR Radiology: EMP read contemporaneously (Fracture of the left proximal femoral shaft, oblique) PD MEDICAL DECISION MAKING - ED course ED course: This is a 73-year-old woman with multiple medical comorbidities who had a mechanical fall today and clinically has a hip fracture, actually an upper femur spiral fracture on x-ray. Spoke with Dr. Marie for consultation at 2:20 PM and he defers to medicine for admission and I spoke with Dr. Carey for admission at 2:30 PM. However in the process of admission Dr. Carey looked at her prior echo showing severe LVH with severe pulmonary hypertension and consulted anesthesia. The feeling was she was too high risk to be operated on at this critical access small hospital without cardiology or nephrology backup and recommended transfer. Her specialists are at [facility] and they were called for consultation and transfer at 3:07 PM. The urine was reported to me by the ER and is being cloudy and purulent. It was sent for urinalysis. It was also noted that she had incidental hydronephrosis on her thoracic spine CT that will need further workup. Review of prior urine cultures show that she often has Klebsiella pneumonia grew out of her urine which is resistant to levofloxacin, ciprofloxacin, and ampicillin. Her urine was very positive, for which she was administered Rocephin. Departure - Departure Disposition: 02 Transfer Acute Care Hosp Clinical Impression: History of CVA with residual deficit, History of congestive heart failure, Pacemaker Femur fracture, left Qualifiers: Encounter type: initial encounter Femur location: shaft Fracture type: closed Fracture morphology: oblique Fracture alignment: displaced Qualified Code(s): S72.332A - Displaced oblique fracture of shaft of left femur, initial encounter for closed fracture Fall Qualifiers: Encounter type: initial encounter Qualified Code(s): W19.XXXA - Unspecified fall, initial encounter Head injury Qualifiers: Encounter type: initial encounter Qualified Code(s): S09.90XA - Unspecified injury of head, initial encounter Back contusion Qualifiers: Encounter type: initial encounter Laterality: left Qualified Code(s): S20.222A - Contusion of left back wall of thorax, initial encounter Chronic renal insufficiency Qualifiers: Chronic kidney disease stage: stage 3 (moderate) Qualified Code(s): N18.3 - Chronic kidney disease, stage 3 (moderate) Type 2 diabetes mellitus 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
[2018-07-18 12:59] LABS: BASOPHILS % (AUTO) 0.5 %; EOSINOPHILS # (AUTO) 0.8 10^3/uL (0.0-0.7); EOSINOPHILS % (AUTO) 11.8 %; HGB - HEMOGLOBIN 9.8 g/dL (12.0-16.0); LYMPHOCYTES # (AUTO) 1.5 10^3/uL (1.5-3.5); LYMPHOCYTES % (AUTO) 22.9 %; MEAN CORPUSCULAR HEMOGLOBIN 26.2 pg (27.0-31.0); MEAN CORPUSCULAR HGB CONC 31.5 g/dL (32.0-36.0); MEAN CORPUSCULAR VOLUME 83.2 fL (81.0-99.0); MEAN PLATELET VOLUME 8.2 fL (7.9-10.8); MONOCYTES # (AUTO) 0.4 10^3/uL (0.0-1.0); MONOCYTES % (AUTO) 6.7 %; NEUTROPHILS # (AUTO) 3.7 10^3/uL (1.5-6.6); NEUTROPHILS % (AUTO) 58.1 %; PLT - PLATELET COUNT 209 10^3/uL (130-450); RED BLOOD COUNT 3.75 10^6/uL (4.20-5.40); RED CELL DISTRIBUTION WIDTH 19.6 % (12.0-15.0); WHITE BLOOD COUNT 6.4 x10^3/uL (4.8-10.8)
[2018-07-18 13:05] LABS: INR 1.1 (0.8-1.2); PT - PROTHROMBIN TIME 12.8 secs (9.9-12.6)
[2018-07-18 13:14] LABS: ALBUMIN 2.4 g/dL (3.2-5.5); ALBUMIN/GLOBULIN RATIO 0.6 (1.0-2.2); BILIRUBIN,TOTAL 0.4 mg/dL (0.2-1.0); CALCIUM 8.2 mg/dL (8.5-10.3); CREATININE 2.4 mg/dL (0.4-1.0); TOTAL PROTEIN 6.1 g/dL (6.7-8.2)
[2018-07-18 13:19] LABS: TROPONIN I < 0.04 ng/mL (<0.49)
--- NOTE | 2018-07-18 14:29 | XRAY Report ---
Reason: preop Procedure Date: 07/18/2018 Accession Number: [id number] / [id number] Procedure: XR - Chest 1 View X-Ray CPT Code: 41393 FULL RESULT: EXAM: CHEST RADIOGRAPHY EXAM DATE: 07/18/2018 02:20 PM. CLINICAL HISTORY: Preop. COMPARISON: 01/17/2017. TECHNIQUE: 1 view. FINDINGS: Lungs/Pleura: No focal opacities evident. No pleural effusion. No pneumothorax. Mediastinum: Mild bilateral hilar prominence. Heart size within normal limits. Pacemaker/AICD in place. Other: None. IMPRESSION: No acute findings. [facility]
--- NOTE | 2018-07-18 14:32 | XRAY Report ---
Reason: hip inj Procedure Date: 07/18/2018 Accession Number: [id number] / [id number] Procedure: XR - Hip w/Pelvis 2-3V LT CPT Code: FULL RESULT: EXAM: LEFT HIP AND PELVIS RADIOGRAPHY EXAM DATE: 07/18/2018 02:21 PM. HISTORY: Hip inj. COMPARISONS: None. TECHNIQUE: 1 view of the pelvis and 1 view of the hip. FINDINGS: There is an oblique fracture of the subtrochanteric left proximal femoral diaphysis with minimal displacement and overlap. No additional fracture is identified. No dislocation. Pubic symphysis is not widened. IMPRESSION: Fracture of the left proximal femoral shaft. RAD[facility]
[2018-07-18] MEDS ORDERED: ONDANSETRON ODT 4 MG TABLET TL PRN (14:33)
[2018-07-18] MEDS ORDERED: ONDANSETRON 4 MG/2 ML VIAL IVP PRN (14:33)
[2018-07-18] MEDS ORDERED: SODIUM CHLORIDE FLUSH 0.9% 10 ML SYRINGE IVP PRN (14:33)
[2018-07-18] MEDS ORDERED: ACETAMINOPHEN 325 MG TABLET PO PRN (14:33)
[2018-07-18] MEDS ORDERED: oxyCODONE 5 MG TABLET PO PRN (14:33)
[2018-07-18] MEDS ORDERED: MORPHINE 2 MG/ML CARPUJECT IVP PRN (14:33)
--- NOTE | 2018-07-18 14:36 | CT Report ---
Reason: head inj Procedure Date: 07/18/2018 Accession Number: [id number] / [id number] Procedure: CT - Cervical Spine W/O CPT Code: FULL RESULT: EXAM: CT CERVICAL SPINE WITHOUT CONTRAST DATE: 07/18/2018 01:46 PM. HISTORY: Head inj. COMPARISONS: None. TECHNIQUE: Thin-section axial images were acquired of the cervical spine without contrast. Post-processing: Coronal and sagittal reformats. Other: None. In accordance with CT protocol optimization, one or more of the following dose reduction techniques were utilized for this exam: automated exposure control, adjustment of mA and/or KV based on patient size, or use of iterative reconstructive technique. FINDINGS: Alignment: No scoliosis or spondylolisthesis. Bones: No fracture or bone lesion. Mild degenerative diskogenic changes at the C3/C4, C5/C6, and C6/C7 levels. Other: The paravertebral and prevertebral soft tissues are unremarkable. The lung apices are clear. Hypodense nodules in the isthmus and right thyroid lobe measure 1.1 cm. IMPRESSION: 1. No evidence for acute osseous injury cervical spine. 2. Thyroid nodules. [facility]
--- NOTE | 2018-07-18 14:43 | CT Report ---
Reason: head inj Procedure Date: 07/18/2018 Accession Number: [id number] / [id number] Procedure: CT - Head W/O CPT Code: FULL RESULT: EXAM: CT HEAD EXAM DATE: 07/18/2018 01:46 PM. CLINICAL HISTORY: Head inj. COMPARISON: 01/20/2017. TECHNIQUE: Multiaxial CT images were obtained from the foramen magnum to the vertex. Reformats: Sagittal and coronal. IV contrast: None. In accordance with CT protocol optimization, one or more of the following dose reduction techniques were utilized for this exam: automated exposure control, adjustment of mA and/or KV based on patient size, or use of iterative reconstructive technique. FINDINGS: Parenchyma: No intraparenchymal hemorrhage. No evidence of mass, midline shift, or CT findings of infarction. Stable encephalomalacia left cerebellum. Extraaxial Spaces: Normal for age. No subdural or epidural collections identified. Ventricles: Normal in size and position. Sinuses and Orbits: Mucous retention cyst in the maxillary sinuses, also seen in 2017. Bones: No evidence of fracture or calvarial defect. Other: None. IMPRESSION: No evidence for acute intracranial injury. RAD[facility]
--- NOTE | 2018-07-18 14:43 | HISTORY & PHYSICAL EXAMINATION ---
Chief Complaint - Chief Complaint Chief Complaint: Fall with femur fracture History of Present Illness - Admitted From Admitted From:: Home/ER - History Obtained From Records Reviewed: [facility] in [facility] History obtained from: Patient and Dr. Olvera Exam Limitations: None - History of Present Illness HPI Comment/Other: She is an elderly female who lives in her own home, but has limited mobility because of COPD and generalized weakness. She does not walk any great distance and usually uses a wheelchair. She is able to transfer herself from bed to wheelchair, wheelchair to commode, etc. Today, while walking down the hallway and using the wheelchair as her walker, her legs gave out from underneath her and she hit the bathroom door, landed on the floor and hit the back of her head and left shoulder and left hip. There was resultant severe hip pain and she came to the emergency room. It is a mechanical fall. There was no syncope, nausea, diaphoresis, change in vision before this happened. She was evaluated by Dr. Olvera and was found to be afebrile and normotensive as well as oxygenating well. She is chronically anemic at 9.8 g of hemoglobin. Troponins are negative. An x-ray shows her to have an oblique displaced fracture of the left femur. Dr. Olvera has already contacted orthopedic surgery, Dr. Marie, and the patient will be placed in our service, with Dr. Giles consulting and operating. History - Past Medical History Cardiovascular: reports: Hypertension, High cholesterol, Murmur (with valvular heart disease. Echo January 2017 shows severe left ventricular hypertrophy. Left ventricular systolic function is hyperdynamic with ejection fraction of 70-75%. Dynamic left ventricular outflow tract obstruction noted. Right ventricle normal. Mild tricuspid regurgitation. Mildly abnormal heart pressures with RVSP at rest 49 mmHg. Repeat echo January 2018 shows moderate left ventricular outflow tract gradient the become severe with Valsalva. Moderate diastolic dysfunction and left atrium severely dilated. Severe pulmonary hypertension. PA SP 69 mmHg. Right ventricle is mild to moderately dilated with normal ej ection fraction.), Arrhythmia (Syncope and heart block in January 2017. Treated at [facility] in [place]. 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 Living arrangement: At home Living Situation: With spouse/s.o. - Substance History Use: Uses substance without health or social issues: NONE - POLST Patient has POLST: No POLST Status: Full Code Meds/Allgy - Home Medications Home Medications: Ambulatory Orders Medication Instructions Recorded Confirmed Amlodipine Besylate 5 mg PO BID 06/06/13 01/30/18 Cetirizine HCl [Zyrtec] 10 mg PO DAILY 06/06/13 01/30/18 Furosemide [Lasix] 80 mg PO DAILY 06/06/13 01/30/18 Gabapentin 300 mg PO 1400 06/06/13 01/30/18 Glipizide [Glipizide ER] 2.5 mg PO DAILY 06/06/13 01/30/18 Metoprolol Succinate 100 mg PO BID 06/06/13 01/30/18 hydrALAZINE [Apresoline] 75 mg PO TID 06/06/13 01/30/18 Allopurinol 300 mg ORAL DAILY 08/08/14 01/30/18 Albuterol Sulfate [Proair Hfa 2 puffs INH Q4H PRN 02/01/16 01/30/18 Inhaler] Rosuvastatin Calcium [Crestor] 5 mg PO QPM 02/01/16 01/30/18 Venlafaxine HCl [Venlafaxine HCl 37.5 mg PO DAILY 02/01/16 01/30/18 ER] Pantoprazole [Protonix] 40 mg PO QDAC 01/16/17 01/30/18 Gabapentin [Neurontin] 600 mg PO QPM 01/19/17 01/30/18 cloNIDine 0.3 MG PATCH 1 each TOP Q7D 01/19/17 01/30/18 [[id number]-3] Aspirin [Aspirin EC] 325 mg PO DAILY 01/20/17 01/30/18 Hydrocodone/Acetaminophen 1 - 2 each PO Q6H PRN #20 tablet 12/21/17 01/30/18 [Hydrocodone-Acetamin 5-325 mg] Potassium Chloride [Klor-Con 10] 10 meq PO DAILY 12/21/17 01/30/18 Levetiracetam [Keppra] 500 mg PO BID 01/30/18 01/30/18 Oxybutynin Chloride [Ditropan Xl] 20 mg PO DAILY 01/30/18 01/30/18 Sulfamethox/Trimeth 800/160 1 tab PO BID #14 tablet 02/02/18 [Bactrim Ds] - Allergies Allergies/Adverse Reactions: Allergies Allergy/AdvReac Type Severity Reaction Status Date / Time hydromorphone [From Dilaudid] Allergy Unknown Verified 07/18/18 12:23 codeine [Codeine] AdvReac Severe Hallucinati Verified 07/18/18 12:23 ons diphenhydramine citrate * AdvReac Intermediate unknown Verified 07/18/18 12:23 [From Excedrin PM] ibuprofen [From Advil] AdvReac Intermediate unknown Verified 07/18/18 12:23 naproxen sodium * AdvReac Intermediate unknown Verified 07/18/18 12:23 [From Aleve] zolpidem tartrate * AdvReac Intermediate Hives Verified 07/18/18 12:23 [From Ambien] Exam - Vital Signs Vital Signs: Vital Signs x48h Temp Pulse Resp BP Pulse Ox 07/18/18 12:10 36.8 C 71 15 118/70 95 Conclusion/Plan - Lab Results Fish Bones: 07/18/18 12:50 07/18/18 12:50
--- NOTE | 2018-07-18 14:59 | CT Report ---
Reason: back inj Procedure Date: 07/18/2018 Accession Number: [id number] / [id number] Procedure: CT - Thoracic Spine W/O CPT Code: FULL RESULT: EXAM: CT THORACIC SPINE WITHOUT CONTRAST EXAM DATE: 07/18/2018 01:46 PM. CLINICAL HISTORY: Back inj. COMPARISONS: None. TECHNIQUE: Thin-section axial images were acquired of the thoracic spine from C7 to L1 without contrast. Post-processing: Coronal and sagittal reformats. Other: None. In accordance with CT protocol optimization, one or more of the following dose reduction techniques were utilized for this exam: automated exposure control, adjustment of mA and/or KV based on patient size, or use of iterative reconstructive technique. FINDINGS: Alignment: No scoliosis or spondylolisthesis. Bones: No acute fracture or bone lesion. Moderate anterior wedge compression deformity of T9 vertebral body, stable when compared to 01/17/17 CXR. Kyphoplasty changes at the T12 level, stable. Mild to moderate degenerative discogenic changes throughout the thoracic spine. Chest: Mid-ascending thoracic aorta measures 4.3 cm (axial image 91). The main pulmonary artery measures 4.5 cm (image 89). Bilateral lower lobe pulmonary nodules measure 0.3 cm on the left (image 151) and 0.7 cm on the right (image 143). Abdomen: Exophytic hypodense lesion off the right kidney suggestive of cyst measures 2.2 cm (image 184). Left proximal ureteral dilatation with periureteral stranding (image 188). IMPRESSION: 1. No evidence for acute osseous injury thoracic spine. 2. 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 3. Bilateral pulmonary nodules measure up to 0.7 cm. Consider follow up [address] chest if indicated. 4. Left proximal hydroureter with periureteral stranding, suggestive of distal obstruction. Consider follow up CT abdomen/pelvis if indicated. Exophytic right renal lesion suggestive of cyst. RADIA
[2018-07-18] MEDS ORDERED: SODIUM CHLORIDE 0.9% 1,000 ML IV SCH (15:00)
[2018-07-18] MEDS ORDERED: cloNIDine 0.3 MG PATCH TOP SCH (15:00)
[2018-07-18] MEDS ORDERED: fentaNYL 2,500 MCG in SODIUM CHLORIDE 0.9% 200 ML IV STA (16:52)
[2018-07-18] MEDS ORDERED: SODIUM CHLORIDE FLUSH 0.9% 10 ML SYRINGE IVP SCH (17:00)
[2018-07-18] MEDS ORDERED: GABAPENTIN 100 MG CAPSULE PO STA (17:21)
[2018-07-18] MEDS ORDERED: levETIRAcetam 250 MG TABLET PO STA (17:21)
[2018-07-18 18:13] LABS: BILIRUBIN,URINE NEGATIVE (NEGATIVE); GLUCOSE, URINE (UA) NEGATIVE (NEGATIVE); KETONES,URINE (UA) NEGATIVE (NEGATIVE); LEUKOCYTE ESTERASE, URINE LARGE (NEGATIVE); NITRITE,URINE POSITIVE (NEGATIVE); OCCULT BLOOD,URINE SMALL (NEGATIVE); PH,URINE 5.5 PH (5.0-7.5); PROTEIN,URINE 100 mg/dL (NEGATIVE); UROBILINOGEN,URINE 0.2 (NORMAL) E.U./dL (NORMAL)
[2018-07-18 18:14] LABS: CLARITY,URINE TURBID (CLEAR)
[2018-07-18 18:15] LABS: BACTERIA,URINE Many /HPF (None Seen); RBC,URINE TNTC /HPF (0-5); SQUAMOUS EPITHELIAL CELL,UR FEW Squamous (<= Few)
[2018-07-18] MEDS ORDERED: cefTRIAXone 1 GM in SODIUM CHLORIDE 0.9% MINIBAG 100 ML IV STA (18:25)
[2018-07-18 18:47] VITALS: BP 104/88
[2018-07-18] MEDS ORDERED: LEVETIRACETAM 500 MG PO SCH (21:00)
[2018-07-18] MEDS ORDERED: amLODIPine 5 MG TABLET PO SCH (21:00)
[2018-07-18] MEDS ORDERED: METOPROLOL SUCCINATE 100 MG PO SCH (21:00)
[2018-07-18] MEDS ORDERED: GABAPENTIN 300 MG CAPSULE PO SCH (21:00)
[2018-07-18] MEDS ORDERED: NON FORMULARY MED (Rosuvastatin Calcium [Crestor] 5 MG) PO SCH (21:00)
[2018-07-18] MEDS ORDERED: hydrALAZINE 25 MG TABLET PO SCH (22:00)
[2018-07-19] MEDS ORDERED: PANTOPRAZOLE 40 MG TABLET PO SCH (07:00)
[2018-07-19] MEDS ORDERED: POTASSIUM CHLORIDE 10 MEQ PO SCH (09:00)
[2018-07-19] MEDS ORDERED: VENLAFAXINE HCL 37.5 MG PO SCH (09:00)
[2018-07-19] MEDS ORDERED: POLYETHYLENE GLYCOL 3350 17 GM PACKET PO SCH (09:00)
[2018-07-19] MEDS ORDERED: FUROSEMIDE 40 MG TABLET PO SCH (09:00)
[2018-07-19] MEDS ORDERED: OXYBUTYNIN CHLORIDE 20 MG PO SCH (09:00)
[2018-07-19] MEDS ORDERED: NON FORMULARY MED (Allopurinol [Allopurinol] 300 MG) ORAL SCH (09:00)
[2018-07-19] MEDS ORDERED: GABAPENTIN 300 MG CAPSULE PO SCH (14:00)
== END 2018-07-18 19:59 | disposition short-term general hospital (02) ==
LOC: ED 12:14
DX: S72.332A Displaced oblique fracture of shaft of left femur, initial encounter for closed fracture (principal); S09.90XA Unspecified injury of head, initial encounter; S20.222A Contusion of left back wall of thorax, initial encounter; W19.XXXA Unspecified fall, initial encounter; W22.09XA Striking against other stationary object, initial encounter; N39.0 Urinary tract infection, site not specified; I13.0 Hypertensive heart and chronic kidney disease with heart failure and stage 1 through stage 4 chronic kidney disease, or unspecified chronic kidney disease; E11.22 Type 2 diabetes mellitus with diabetic chronic kidney disease; N18.3 Chronic kidney disease, stage 3 (moderate); I50.9 Heart failure, unspecified; Z99.3 Dependence on wheelchair; I48.91 Unspecified atrial fibrillation; I45.2 Bifascicular block
CPT/HCPCS: 36415; 51702; 70450; 71045; 72125; 72128; 73502; 80053; 81001; 82550; 82553; 83690; 84484; 85025; 85610; 85730; 87077; 87086; 87181; 93005; 96365; 96375; 96376; 99284; 99285; A9270; 81003

== ENCOUNTER 2018-07-18 20:02 | Outpatient (CLI) | payer MEDICARE, OTHER | END 2018-07-18 23:59 | disposition short-term general hospital (02) | LOC: EMS 20:02 | PROVIDERS: ATTEND Surgery | DX: S72.002A Fracture of unspecified part of neck of left femur, initial encounter for closed fracture (principal); W18.39XA Other fall on same level, initial encounter | CPT/HCPCS: A0425; A0426 ==